=== PATIENT | male | born 1960 | race Caucasian/White ===

== ENCOUNTER 2017-01-18 12:16 | Inpatient (IN) | payer OTHER ==
[2017-01-18 15:33] VITALS: BMI 31.3
--- NOTE | 2017-01-18 16:30 | HP ---
Admission ROS [facility] - [facility] Chief Complaint: I WANT TO GO TO REHAB Allergies/Adverse Reactions: Allergies Allergy/AdvReac Type Severity Reaction Status Date / Time Fish Containing Products Allergy Severe Rash Verified 01/18/17 16:33 fish derived Allergy Intermediate Rash Verified 01/18/17 16:33 No Known Drug Allergies Allergy Unknown Verified 01/18/17 16:33 History of Present Illness: 56 YEARS OLD MALE WITH LONG HISTORY OF OPIOID NICOTINE DEPENDENCE, POLIO = AMBULATE WITH CANE, HAS DEPRESSION IS ADMITTED TO REHAB. PATIENT DISCHARGED FROM [facility] 01/18/17, AFTER 7 DAYS FOR SUICIDAL IDEATION. Exam Limitations: No Limitations - Ebola screening Have you traveled outside of the country in the last 21 days: No Have you had contact with anyone from an Ebola affected area: No Have you been sick,other than usual withdrawal symptoms: No Do you have a fever: No - Review of Systems Constitutional: No Symptoms Reported EENT: reports: No Symptoms Reported Respiratory: reports: No Symptoms reported Cardiac: reports: No Symptoms Reported GI: reports: No Symptoms Reported : reports: No Symptoms Reported Musculoskeletal: reports: Muscle Weakness (RIGHT LEG - POLIO) Integumentary: reports: No Symptoms Reported Neuro: reports: No Symptoms reported Endocrine: reports: No Symptoms Reported Hematology: reports: No Symptoms Reported Psychiatric: reports: Judgement Intact, Orientated x3, Anxious, Depressed Other Systems: Reviewed and Negative Patient History - Patient Medical History Hx Anemia: No Hx Asthma: No Hx Chronic Obstructive Pulmonary Disease (COPD): No Hx Cancer: No Hx Cardiac Disorders: No Hx Congestive Heart Failure: No Hx Hypertension: No Hx Hypercholesterolemia: No Hx Pacemaker: No HX Cerebrovascular Accident: No Hx Seizures: No Hx Dementia: No Hx Diabetes: No Hx Gastrointestinal Disorders: No Hx Liver Disease: No Hx Genitourinary Disorders: No Hx Sexually Transmitted Disorders: No Hx Renal Disease (ESRD): No Hx Thyroid Disease: No Hx Human Immunodeficiency Virus (HIV): No (NEGATIVE LAST 08/08) Hx Hepatitis C: No Hx Depression: No Hx Suicide Attempt: No Hx Bipolar Disorder: No Hx Schizophrenia: Yes - Patient Surgical History Past Surgical History: No Hx Neurologic Surgery: No Hx Cataract Extraction: No Hx Cardiac Surgery: No Hx Lung Surgery: No Hx Breast Surgery: No Hx Breast Biopsy: No Hx Abdominal Surgery: No Hx Appendectomy: No Hx Cholecystectomy: No Hx Genitourinary Surgery: No Hx Orthopedic Surgery: No - PPD History Previous Implant?: Yes Documented Results: Negative w/proof Implanted On Prior R Admission?: Yes Date: 09/10/15 Results: 0mm PPD to be Administered?: Yes - Smoking Cessation Smoking history: Current every day smoker Have you smoked in the past 12 months: Yes Aproximately how many cigarettes per day: 10 Cigars Per Day: 0 Hx Chewing Tobacco Use: No Initiated information on smoking cessation: Yes 'Breaking Loose' booklet given: 01/18/17 - Substance & Tx. History Hx Alcohol Use: Yes Hx Substance Use: Yes Substance Use Type: Alcohol, Cocaine, Marijuana, Opiates Hx Substance Use Treatment: Yes - Substances Abused Alcohol Route: Oral Frequency: Daily Amount used: 1/2 [place] Age of first use: 14 Date of Last Use: 01/11/17 Cocaine Route: Inhalation Frequency: Daily Amount used: 220$ Age of first use: 14 Date of Last Use: 01/11/17 Heroin Route: Inhalation Frequency: Daily Amount used: 11 BAGS Age of first use: 14 Date of Last Use: 05/24/16 Family Disease History - Family Disease History Family Disease History: Other: Father (deceaded,ALCOHOL), Mother () Admission Physical Exam BHS - Vital Signs Vital Signs: Vital Signs - 24 hr 01/18/17 15:28 Temperature 97 F L Pulse Rate 78 Respiratory 18 Rate Blood Pressure 132/80 - Physical General Appearance: Yes: No Apparent Distress, Appropriately Dressed, Obese HEENTM: Yes: Hearing grossly Normal, Normal ENT Inspection, Normocephalic, Normal Voice Respiratory: Yes: Chest Non-Tender, Lungs Clear, Normal Breath Sounds, No Respiratory Distress, No Accessory Muscle Use Neck: Yes: Supple, Trachea in good position Breast: Yes: Breasts Symetrical Cardiology: Yes: Regular Rhythm, Regular Rate, S1, S2 Abdominal: Yes: Normal Bowel Sounds, Non Tender, Soft Genitourinary: Yes: Within Normal Limits Back: Yes: Normal Inspection Musculoskeletal: Yes: Gait Steady (CANE), Muscle weakness (RIGHT LEG) Extremities: Yes: Non-Tender, Other (RIGHT LEG ATROPHY) Neurological: Yes: Fully Oriented, Alert, Normal Mood/Affect, Normal Response Integumentary: Yes: Warm Lymphatic: Yes: Within Normal Limits - Diagnostic (1) Opioid dependence with withdrawal Current Visit: Yes Status: Acute (2) Nicotine dependence Current Visit: Yes Status: Acute Qualifiers: Nicotine product type: cigarettes Substance use status: in withdrawal Qualified Code(s): F17.213 - Nicotine dependence, cigarettes, with withdrawal (3) Use of cane as ambulatory aid Current Visit: Yes Status: Chronic (4) Alcohol dependence with uncomplicated withdrawal Current Visit: Yes Status: Acute (5) Cocaine dependence, uncomplicated Current Visit: Yes Status: Chronic (6) Schizophrenia Current Visit: Yes Status: Suspected Qualifiers: Schizophrenia type: disorganized schizophrenia Qualified Code(s): F20.1 - Disorganized schizophrenia Cleared for Admission [facility] - Detox or Rehab [facility] Level of Care: Observation Bed Detox Regimen/Protocol: Not Applicable Claeared for Rehab Admission: Yes [facility] Breath Alcohol Content Breath Alcohol Content: 0 Vital Signs - Vital Signs Vital Signs Refused: No Temperature Source: Oral Pulse Rate: 78 Respiratory Rate: 18 Blood Pressure: 132/80 BP Location: Left Arm Blood Pressure Position: Sitting - Height Height: 5 ft 6 in - Weight Weight: 194 lb Weight Measurement Method: Standing Scale Body Mass Index (BMI): 31.3 - Bowel Function Bowel Movement: Yes Urine Drug Screen - Control Is Test Valid: Yes - Results Drug Screen Negative: Yes
[2017-01-18] MEDS ORDERED: MENTHOL/PHENOL 1 EACH UD MM PRN (16:47)
[2017-01-18] MEDS ORDERED: guaiFENesin/D-METHORPHAN HB 10 ML UNIT-DOSE CUPS PO PRN (16:47)
[2017-01-18] MEDS ORDERED: LOPERAMIDE HCL 2 MG CAPSULE PO PRN (16:47)
[2017-01-18] MEDS ORDERED: IBUPROFEN 400 MG TABLET (FP) PO PRN (16:47)
[2017-01-18] MEDS ORDERED: hydrOXYzine PAMOATE 50 MG CAPSULE (FP) PO PRN (16:47)
[2017-01-18] MEDS ORDERED: MAG HYDROX/AL HYDROX/SIMETH 30 ML UNIT-DOSE CUP PO PRN (16:47)
[2017-01-18] MEDS ORDERED: ACETAMINOPHEN 325 MG TABLET (FP) PO PRN (16:47)
[2017-01-18] MEDS ORDERED: MAGNESIUM HYDROX 2400MG/30ML ORAL SUSPENSION 30 ML CUP PO PRN (16:47)
[2017-01-18] MEDS ORDERED: NICOTINE POLACRILEX 2 MG GUM BUC PRN (16:47)
[2017-01-18] MEDS ORDERED: P-EPHED 60MG/TRIPROLIDI 2.5MG TABLET PO PRN (16:47)
[2017-01-18] MEDS ORDERED: MAGNESIUM CITRATE 300 ML BOTTLE PO PRN (16:47)
[2017-01-18] MEDS: QUEtiapine FUMARATE 200 MG TABLET PO SCH (21:17)
[2017-01-18] MEDS: traZODone HCL 100 MG TABLET (FP) PO SCH (21:17)
[2017-01-18] MEDS: THIAMINE HCL 100 MG TABLET (FP) PO SCH (21:17)
[2017-01-18] MEDS ORDERED: diphenhydrAMINE HCL 50 MG CAPSULE PO PRN (22:00)
[2017-01-18 23:16] LABS: URINE APPEARANCE CLEAR; URINE BILIRUBIN NEGATIVE (NEGATIVE); URINE BLOOD NEGATIVE (NEGATIVE); URINE COLOR LTYELLOW; URINE GLUCOSE (UA) NEGATIVE (NEGATIVE); URINE KETONE NEGATIVE (NEGATIVE); URINE LEUK ESTERASE NEGATIVE (NEGATIVE); URINE NITRITE NEGATIVE (NEGATIVE); URINE PROTEIN NEGATIVE (NEGATIVE); URINE UROBILINOGEN NEGATIVE E.U./dl (0.2-1.0)
[2017-01-19 10:14] LABS: ALBUMIN 4.1 g/dl (3.4-5.0); ANION GAP 10 (8-16); BILIRUBIN,TOTAL 0.5 mg/dL (0.2-1.0); CALCIUM 9.7 mg/dL (8.5-10.1); CO2 29 mmol/L (21-32); COCKROFT - GAULT 111.35; CREATININE 0.9 mg/dL (0.7-1.3); GLUCOSE,RANDOM 84 mg/dL (74-106); SGOT/AST 17 U/L (15-37); SGPT/ALT 35 U/L (12-78); TOT PROT 7.9 g/dl (6.4-8.2)
[2017-01-19 10:15] LABS: ALK PHOS 95 U/L (45-117)
[2017-01-19 10:29] LABS: MCH 29.1 pg (25.7-33.7); MCHC 33.1 g/dl (32.0-35.9); MEAN CELL VOLUME 87.9 fl (80-96); MEAN PLT VOLUME 9.4 fl (7.5-11.1); PLATELET COUNT 308 K/MM3 (134-434); RDW 15.6 % (11.9-15.9)
[2017-01-19] MEDS: PRENATAL VITAMINS W/ FOLIC ACID TABLET (FP) PO SCH (10:30)
[2017-01-19] MEDS: NICOTINE 14 MG/24 HOURS TOPICAL PATCH TD SCH (10:30)
--- NOTE | 2017-01-19 11:17 | HP ---
Psychiatrist Admission - Data Date of interview: 01/19/17 Admission source: [facility] Identifying data: This is one of the multiple [facility] admission for this 56 years old male in a common-law relationship,father of 4 children, unemployed on SSI, domiciled living with c/l Medical History: Reports history of Poliomyelitis since age 1 with right leg weakness. Smoked 10 cigarettes daily Psychiatric History: Patient is a somewhat poor historian. Reports that his first psychiatric contact occured in 2010 when he was admitted to [facility] for inpt detox. Reports that he was seen then by a psychiatrist and prescribed Seroquel for sleep. Since then he said he has been getting Seroquel in various inpt detox programs he has been admitted to. He told aligner typewriter that his only psychiatric admission was on 01/11/17 to [facility] in [place] for depression. According to referral package from [facility], patient was admitted on 01/11/17 to 01/18/17. He was there because of depression, command auditory hallucinations and suicidal ideations of jumping off a [facility]. He was diagnosed with Schizoaffective Disorder and treated with Wellbutrin XL 150 mg po daily, Seroquel 200 mg po HS and Trazadone 100 mg po HS. According to information from that package, he has had previous admissions with similar presentation( depression, CAH & SI) and most recent one was at [facility] for trying to jump off a roof. Most of these admissions were in the context of homelessness and heroin use. At present, He denies experiencing psychotic, manic or depressive symptoms as well as SI/HI. Physical/Sexual Abuse/Trauma History: Denies history of emotional, physical or sexual abuse as well as DV relationship Additional Comment: Reports history of multiple arrests including 6 felony convictions. Denies being on parole/probation or having any open case at present Vital Signs: Vital Signs - 24 hr 01/18/17 01/18/17 01/19/17 15:28 16:59 00:30 Temperature 97 F L Pulse Rate 78 78 Respiratory 18 18 18 Rate Blood Pressure 132/80 132/80 01/19/17 01/19/17 03:30 06:49 Temperature 97.2 F L Pulse Rate 78 Respiratory 20 18 Rate Blood Pressure 126/71 Allergies/Adverse Reactions: Allergies Allergy/AdvReac Type Severity Reaction Status Date / Time Fish Containing Products Allergy Severe Rash Verified 01/18/17 16:33 fish derived Allergy Intermediate Rash Verified 01/18/17 16:33 No Known Drug Allergies Allergy Unknown Verified 01/18/17 16:33 Date of last physical exam: 01/18/17 Concur with the findings of this exam: Yes - Substance Abuse/Tx History Hx Alcohol Use: Yes Hx Substance Use: Yes Substance Use Type: Alcohol (Started drinking alcohol at age14, consumes half a pint daily. Last drink on 01/11/17) Hx Substance Use Treatment: Yes (7 previous inpt detox & 4 inpt rehab @ [facility]) - Admission Criteria Previous failed treatment: Yes Poor recovery environment: Yes Comorbidities: Yes Lacks judgement: Yes Mental Status Exam - Mental Status Exam Alert and Oriented to: Time Cognitive Function: Fair Mood: Hopeful, Euthymic Affect: Appropriate Patient Behavior: Cooperative Speech Pattern: Clear Voice Loudness: Normal Thought Process: Intact Thought Disorder: Not Present Hallucinations: Denies Suicidal Ideation: Denies Homicidal Ideation: Denies Insight/Judgement: Fair Sleep: Poorly Appetite: Fair Muscle strength/Tone: Normal Gait/Station: Hemiparetic (walking with a cane) Psychiatric Findings - Problem List ([place] 1, 2,3) (1) Alcohol dependence with uncomplicated withdrawal Current Visit: Yes Status: Acute (2) Opioid dependence with withdrawal Current Visit: Yes Status: Acute (3) Cocaine dependence, uncomplicated Current Visit: Yes Status: Chronic (4) Nicotine dependence Current Visit: Yes Status: Acute Qualifiers: Nicotine product type: cigarettes Substance use status: in withdrawal Qualified Code(s): F17.213 - Nicotine dependence, cigarettes, with withdrawal (5) Schizoaffective disorder, depressive type Current Visit: Yes Status: Acute (6) Polio Current Visit: No Status: Acute (7) Hemiparesis Current Visit: No Status: Chronic (8) Use of cane as ambulatory aid Current Visit: Yes Status: Chronic - Initial Treatment Plan Initial Treatment Plan: 1) Continue Wellbutrin XL 150 mg po daily, Seroquel 200 mg po HS and Trazadone 200 mg po HS. 2) Monitor progress
--- NOTE | 2017-01-19 13:44 | EKG ---
Test Reason : Blood Pressure : / mmHG Vent. Rate : 071 BPM Atrial Rate : 071 BPM P-R Int : 146 ms QRS Dur : 108 ms QT Int : 396 ms P-R-T Axes : 052 027 -06 degrees QTc Int : 430 ms NORMAL SINUS RHYTHM INFERIOR INFARCT , AGE UNDETERMINED ABNORMAL ECG NO PREVIOUS ECGS AVAILABLE Confirmed by TEJA CHRIS MD ([id number]) on 01/19/2017 1:44:16 PM Referred By: Malcolm Medellin Confirmed By:TEJA CHRIS MD
[2017-01-19] MEDS: QUEtiapine FUMARATE 200 MG TABLET PO SCH (21:12)
[2017-01-19] MEDS: THIAMINE HCL 100 MG TABLET (FP) PO SCH (21:12)
[2017-01-19] MEDS: traZODone HCL 100 MG TABLET (FP) PO SCH (21:12)
[2017-01-19] MEDS ORDERED: QUEtiapine FUMARATE 200 MG TABLET PO SCH (22:00)
[2017-01-19] MEDS ORDERED: traZODone HCL 100 MG TABLET (FP) PO SCH (22:00)
[2017-01-20] MEDS ORDERED: PT OWN MED DRAWER 7, Y5N ONE (08:45)
[2017-01-20] MEDS: PRENATAL VITAMINS W/ FOLIC ACID TABLET (FP) PO SCH (10:28)
[2017-01-20] MEDS: NICOTINE 14 MG/24 HOURS TOPICAL PATCH TD SCH (10:29)
[2017-01-20] MEDS: traZODone HCL 100 MG TABLET (FP) PO SCH (21:04)
[2017-01-20] MEDS: THIAMINE HCL 100 MG TABLET (FP) PO SCH (21:04)
[2017-01-20] MEDS: QUEtiapine FUMARATE 200 MG TABLET PO SCH (21:05)
[2017-01-21] MEDS: NICOTINE 14 MG/24 HOURS TOPICAL PATCH TD SCH (10:39)
[2017-01-21] MEDS: PRENATAL VITAMINS W/ FOLIC ACID TABLET (FP) PO SCH (10:39)
[2017-01-21] MEDS: THIAMINE HCL 100 MG TABLET (FP) PO SCH (21:33)
[2017-01-21] MEDS: traZODone HCL 100 MG TABLET (FP) PO SCH (21:33)
[2017-01-21] MEDS: QUEtiapine FUMARATE 200 MG TABLET PO SCH (21:34)
[2017-01-22 07:19] VITALS: TEMP 97.7
[2017-01-22] MEDS: PRENATAL VITAMINS W/ FOLIC ACID TABLET (FP) PO SCH (10:07)
[2017-01-22] MEDS: NICOTINE 14 MG/24 HOURS TOPICAL PATCH TD SCH (10:07)
[2017-01-22] MEDS: THIAMINE HCL 100 MG TABLET (FP) PO SCH (21:26)
[2017-01-22] MEDS: QUEtiapine FUMARATE 200 MG TABLET PO SCH (21:26)
[2017-01-22] MEDS: traZODone HCL 100 MG TABLET (FP) PO SCH (21:26)
[2017-01-23 06:50] VITALS: BP 125/78; PULSE 74
[2017-01-23] MEDS ORDERED: PT OWN MED DRAWER 7, Y5N ONE (08:51)
--- NOTE | 2017-01-23 09:21 | PN ---
Psychiatric Progress Note Vital Signs: Vital Signs Period Temp Pulse Resp BP Sys/Gaines Pulse Ox Last 24 Hr 97.7 F 74 18-18 125/78 Date of Session: 01/23/17 Chief Complaint:: AMA Discharge Note HPI: Patient addressing Alcohol, Opoid and Cocaine Dependence comorbid with Nicotine Dependence and Schizoaffective Disorder ROS: Poliomyelitis Current Medications: Active Medications Generic Name Dose Route Start Last Admin Trade Name Freq PRN Reason Stop Dose Admin Acetaminophen 650 mg 01/18/17 16:47 Tylenol - PO Q4H PRN PAIN Al Hydroxide/Mg Hydroxide 30 ml 01/18/17 16:47 Mylanta Oral Suspension - PO Q6H PRN DYSPEPSIA Bupropion HCl 150 mg 01/19/17 10:00 01/22/17 10:07 Wellbutrin Xl - PO 150 mg DAILY LAMONT Administration Diphenhydramine HCl 50 mg 01/18/17 22:00 Benadryl - PO HSMR1 PRN INSOMNIA Eucalyptus/Menthol/Phenol/Sorbitol 1 each 01/18/17 16:47 Cepastat Lozenge - MM Q4H PRN SORE THROAT Guaifenesin 10 ml 01/18/17 16:47 Robitussin Dm - PO Q6H PRN COUGH Hydroxyzine Pamoate 50 mg 01/18/17 16:47 Vistaril - PO Q4H PRN AGITATION Ibuprofen 400 mg 01/18/17 16:47 Motrin - PO Q6H PRN SEVERE PAIN Loperamide HCl 4 mg 01/18/17 16:47 Imodium - PO Q6H PRN DIARRHEA Magnesium Citrate 300 ml 01/18/17 16:47 Citroma - PO Q48H PRN CONSTIPATION Magnesium Hydroxide 30 ml 01/18/17 16:47 Milk Of Magnesia - PO DAILY PRN CONSTIPATION Nicotine 14 mg 01/19/17 10:00 01/22/17 10:07 Nicoderm Patch - TD 14 mg DAILY LAMONT Administration Nicotine Polacrilex 2 mg 01/18/17 16:47 01/22/17 21:27 Nicorette Gum - BUC 2 mg Q2H PRN Administration NICOTINE REPLACEMENT RX Multivit/Folic Acid/Iron 1 tab 01/19/17 10:00 01/22/17 10:07 Vitamins (Sjr) - PO 1 tab DAILY LAMONT Administration Pseudoephedrine/Triprolidine 1 combo 01/18/17 16:47 Actifed - PO TID PRN NASAL CONGESTION Quetiapine Fumarate 200 mg 01/18/17 22:00 01/22/17 21:26 Seroquel - PO 200 mg HS LAMONT Administration Thiamine HCl 100 mg 01/18/17 22:00 01/22/17 21:26 Vitamin B1 - PO 100 mg HS LAMONT Administration Trazodone HCl 200 mg 01/18/17 22:00 01/22/17 21:26 Desyrel - PO 200 mg HS LAMONT Administration Current Side Effect: No Lab tests ordered: Yes Lab tests reviewed: Yes Provider note:: Patient wants to leave against medical advice because he cannot smoke on the unit. He is determined to leave despite encouragement to stay and complete this program. He respnded well to Wellbutrin XL 150 mg po daily, Seroquel 200 mg po HS and Trazadone 200 mg po HS. Scripts for these medications are electronically transmitted to [facility].He is stable for leaving [place] Total face to face time:: 25 Mental Status Exam - Mental Status Exam Alert and Oriented to: Time, Place, Person Cognitive Function: Fair Patient Appearance: Disheveled Mood: Hopeful, Euthymic Affect: Appropriate Patient Behavior: Cooperative Speech Pattern: Clear Voice Loudness: Normal Thought Process: Intact Thought Disorder: Not Present Hallucinations: Denies Suicidal Ideation: Denies Homicidal Ideation: Denies Insight/Judgement: Poor Sleep: Fair Appetite: Good Muscle strength/Tone: Normal Gait/Station: Normal Psychiatric Treatment Plan - Problem List (1) Alcohol dependence with uncomplicated withdrawal Current Visit: Yes (2) Opioid dependence with withdrawal Current Visit: Yes (3) Cocaine dependence, uncomplicated Current Visit: Yes (4) Nicotine dependence Current Visit: Yes Qualifiers: Nicotine product type: cigarettes Substance use status: in withdrawal Qualified Code(s): F17.213 - Nicotine dependence, cigarettes, with withdrawal (5) Schizoaffective disorder, depressive type Current Visit: Yes (6) Polio Current Visit: No (7) Hemiparesis Current Visit: No (8) Use of cane as ambulatory aid Current Visit: Yes Initial treatment plan: Patient is leaving [place]
[2017-01-23] MEDS: PRENATAL VITAMINS W/ FOLIC ACID TABLET (FP) PO SCH (09:27)
[2017-01-23] MEDS: NICOTINE 14 MG/24 HOURS TOPICAL PATCH TD SCH (09:27)
== END 2017-01-23 09:35 | disposition left against medical advice (07) | DRG 770 ==
LOC: YASAS 12:16 → Y3W 17:12
PROVIDERS: ADMIT Psychiatry & Neurology Psychiatry; ATTEND Psychiatry & Neurology Psychiatry
PROC: HZ42ZZZ Group Counseling for Substance Abuse Treatment, Cognitive-Behavioral (ICD-10-PCS; principal; 2017-01-23)
DX: F11.23 Opioid dependence with withdrawal (principal); F10.230 Alcohol dependence with withdrawal, uncomplicated; F14.20 Cocaine dependence, uncomplicated; F17.213 Nicotine dependence, cigarettes, with withdrawal; F25.9 Schizoaffective disorder, unspecified; F20.1 Disorganized schizophrenia; R26.2 Difficulty in walking, not elsewhere classified
CPT/HCPCS: 36415; 80053; 81003; 85027; 86593; 93005; 93010

== ENCOUNTER 2017-07-31 14:48 | Inpatient (IN) | payer OTHER ==
[2017-07-31 18:56] VITALS: BMI 32.8
--- NOTE | 2017-07-31 20:07 | HP ---
Admission ROS [facility] - [facility] Chief Complaint: I WANT TO GO TO REHAB Allergies/Adverse Reactions: Allergies Allergy/AdvReac Type Severity Reaction Status Date / Time Fish Containing Products Allergy Severe Rash Verified 01/18/17 16:33 fish derived Allergy Intermediate Rash Verified 01/18/17 16:33 No Known Drug Allergies Allergy Unknown Verified 01/18/17 16:33 History of Present Illness: 56 YEARS OLD MALE WITH LONG HISTORY OF HEROIN NICOTINE DEPENDENCE HAS SCHIZOPHRENIA AND POLIO SINCE AGE 1 IS ADMITTED TO REHAB Exam Limitations: No Limitations - Ebola screening Have you traveled outside of the country in the last 21 days: No Have you had contact with anyone from an Ebola affected area: No Have you been sick,other than usual withdrawal symptoms: No Do you have a fever: No - Review of Systems Constitutional: No Symptoms Reported EENT: reports: No Symptoms Reported Respiratory: reports: No Symptoms reported Cardiac: reports: No Symptoms Reported GI: reports: No Symptoms Reported : reports: No Symptoms Reported Musculoskeletal: reports: Muscle Weakness (RIGHT LEG) Integumentary: reports: No Symptoms Reported Neuro: reports: No Symptoms reported Endocrine: reports: No Symptoms Reported Hematology: reports: No Symptoms Reported Psychiatric: reports: Judgement Intact, Mood/Affect Appropiate, Orientated x3 Other Systems: Reviewed and Negative Patient History - Patient Medical History Hx Anemia: No Hx Asthma: No Hx Chronic Obstructive Pulmonary Disease (COPD): No Hx Cancer: No Hx Cardiac Disorders: No Hx Congestive Heart Failure: No Hx Hypertension: No Hx Hypercholesterolemia: No Hx Pacemaker: No HX Cerebrovascular Accident: No Hx Seizures: No Hx Dementia: No Hx Diabetes: No Hx Gastrointestinal Disorders: No Hx Liver Disease: No Hx Genitourinary Disorders: No Hx Sexually Transmitted Disorders: No Hx Renal Disease (ESRD): No Hx Thyroid Disease: No Hx Human Immunodeficiency Virus (HIV): No (NEGATIVE LAST 08/08) Hx Hepatitis C: No Hx Depression: No Hx Suicide Attempt: No Hx Bipolar Disorder: No Hx Schizophrenia: Yes - Patient Surgical History Past Surgical History: No Hx Neurologic Surgery: No Hx Cataract Extraction: No Hx Cardiac Surgery: No Hx Lung Surgery: No Hx Breast Surgery: No Hx Breast Biopsy: No Hx Abdominal Surgery: No Hx Appendectomy: No Hx Cholecystectomy: No Hx Genitourinary Surgery: No Hx Orthopedic Surgery: No - PPD History Previous Implant?: Yes Documented Results: Negative w/proof Implanted On Prior R Admission?: Yes Date: 01/20/17 Results: 0mm PPD to be Administered?: No - Smoking Cessation Smoking history: Current every day smoker Have you smoked in the past 12 months: Yes Aproximately how many cigarettes per day: 10 Cigars Per Day: 0 Hx Chewing Tobacco Use: No Initiated information on smoking cessation: Yes 'Breaking Loose' booklet given: 07/31/17 - Substance & Tx. History Hx Alcohol Use: No Hx Substance Use: Yes Substance Use Type: Heroin Hx Substance Use Treatment: Yes (06/2017 [facility] ) - Substances Abused Heroin Route: Injection Frequency: Daily Amount used: 11 BAGS Age of first use: 14 Date of Last Use: 07/24/17 Family Disease History - Family Disease History Family Disease History: [place]: Sister (), Other: Father (deceaded,ALCOHOL) , Mother (), Sister Admission Physical Exam BHS - Vital Signs Vital Signs: Vital Signs - 24 hr 07/31/17 18:54 Temperature 98.5 F Pulse Rate 84 Respiratory 18 Rate Blood Pressure 162/94 - Physical General Appearance: Yes: No Apparent Distress, Appropriately Dressed, Obese HEENTM: Yes: Hearing grossly Normal, Normal ENT Inspection, Normocephalic, Normal Voice Respiratory: Yes: Chest Non-Tender, Lungs Clear, Normal Breath Sounds, No Respiratory Distress, No Accessory Muscle Use Neck: Yes: Supple, Trachea in good position Breast: Yes: Breasts Symetrical Cardiology: Yes: Regular Rhythm, Regular Rate, S1, S2 Abdominal: Yes: Normal Bowel Sounds, Non Tender, Soft Genitourinary: Yes: Within Normal Limits Back: Yes: Normal Inspection Musculoskeletal: Yes: Gait Steady (CANE), Muscle weakness (RIGHT LEG), Other ( RIGHT LEG MUSCLE ATROPHY) Extremities: Yes: Non-Tender Neurological: Yes: Fully Oriented, Alert, Normal Response Integumentary: Yes: Warm, Track Ying Lymphatic: Yes: Within Normal Limits - Diagnostic (1) Nicotine dependence Current Visit: Yes Status: Acute Qualifiers: Nicotine product type: cigarettes Substance use status: in withdrawal Qualified Code(s): F17.213 - Nicotine dependence, cigarettes, with withdrawal; F17.213 - Nicotine dependence, cigarettes, with withdrawal (2) Opioid dependence with withdrawal Current Visit: Yes Status: Acute (3) Polio Current Visit: Yes Status: Chronic (4) Schizoaffective disorder, depressive type Current Visit: Yes Status: Suspected (5) Use of cane as ambulatory aid Current Visit: Yes Status: Chronic Cleared for Admission [facility] - Detox or Rehab [facility] Level of Care: Observation Bed Detox Regimen/Protocol: Not Applicable Claeared for Rehab Admission: Yes [facility] Breath Alcohol Content Breath Alcohol Content: 0 Urine Drug Screen - Results Drug Screen Negative: No Urine Drug Screen Results: BZO-Benzodiazepines, TCA-Tricyclic Antidepress Inpatient Rehab Admission - Initial Determination Are CD services needed?: Yes Free of communicable disease: Yes Not in need of hospitalization: Yes - Rehab Admission Criteria Previous failed treatment: Yes Poor recovery environment: Yes Comorbidities: Yes Lacks judgement: No Patient is meeting Inpatient Rehab admission criteria:: Yes
[2017-07-31] MEDS ORDERED: IBUPROFEN 400 MG TABLET (FP) PO PRN (20:08)
[2017-07-31] MEDS ORDERED: LOPERAMIDE HCL 2 MG CAPSULE PO PRN (20:08)
[2017-07-31] MEDS ORDERED: MAGNESIUM HYDROX 2400MG/30ML ORAL SUSPENSION 30 ML CUP PO PRN (20:08)
[2017-07-31] MEDS ORDERED: MENTHOL/PHENOL 1 EACH UD MM PRN (20:08)
[2017-07-31] MEDS ORDERED: P-EPHED 60MG/TRIPROLIDI 2.5MG TABLET PO PRN (20:08)
[2017-07-31] MEDS ORDERED: guaiFENesin/D-METHORPHAN HB 10 ML UNIT-DOSE CUPS PO PRN (20:08)
[2017-07-31] MEDS ORDERED: MAG HYDROX/AL HYDROX/SIMETH 30 ML UNIT-DOSE CUP PO PRN (20:08)
[2017-07-31] MEDS ORDERED: MAGNESIUM CITRATE 300 ML BOTTLE PO PRN (20:08)
[2017-07-31] MEDS ORDERED: ACETAMINOPHEN 325 MG TABLET (FP) PO PRN (20:08)
[2017-07-31] MEDS ORDERED: cloNIDine HCL 0.1 MG TABLET PO PRN (20:10)
[2017-07-31] MEDS ORDERED: TUBERCULIN PPD 5 TU/0.1ML VIAL ID ONE ×2 (22:08→22:53)
[2017-07-31] MEDS: THIAMINE HCL 100 MG TABLET (FP) PO SCH (22:19)
--- NOTE | 2017-07-31 23:06 | PN ---
[facility] Progress Note Note: Psychiatry Attending's on-call note : Called to enter orders for medications. New admission : 56 y/o male. Admitted from community.Self-referred. Issues : Schizoaffective Disorder Opioid dependence Mr Nielsen is requesting following medications : seroquel 150 mg + trazodone 200 mg Spoke to patient via telephone.History taken. Medications were prescribed from [facility] last month. OPD follow up : undetermined. Patient previously known to [facility]. Old records revisited.Last treated on in 01/2017. Drugs confirmed.Date of last intake : 07/30/17 (self-report). Intervention : Seroquel 100 mg po NOW (one dose) Trazodone 100 mg po NOW (one dose) Doses are intentionally reduced. To be re-adjusted in AM by unit psychiatrist. Side effects/benefits discussed with the patient. Consent (verbal) given over telephone. [facility] report : appreciated.Vitals noted.
[2017-07-31] MEDS ORDERED: QUEtiapine FUMARATE 100 MG TABLET (FP) PO ONE (23:19)
[2017-07-31] MEDS ORDERED: traZODone HCL 100 MG TABLET (FP) PO ONE (23:20)
[2017-07-31 23:28] LABS: URINE APPEARANCE CLEAR; URINE BILIRUBIN NEGATIVE (NEGATIVE); URINE BLOOD NEGATIVE (NEGATIVE); URINE COLOR YELLOW; URINE GLUCOSE (UA) NEGATIVE (NEGATIVE); URINE KETONE NEGATIVE (NEGATIVE); URINE NITRITE NEGATIVE (NEGATIVE); URINE PROTEIN NEGATIVE (NEGATIVE); URINE UROBILINOGEN NEGATIVE mg/dL (0.2-1.0)
[2017-08-01] MEDS: PRENATAL VITAMINS W/ FOLIC ACID TABLET (FP) PO SCH (09:55)
[2017-08-01] MEDS: NICOTINE 14 MG/24 HOURS TOPICAL PATCH TD SCH (09:55)
[2017-08-01 10:11] LABS: MCH 29.1 pg (25.7-33.7); MCHC 33.9 g/dl (32.0-35.9); MEAN CELL VOLUME 85.8 fl (80-96); MEAN PLT VOLUME 8.6 fl (7.5-11.1); RDW 15.3 % (11.9-15.9); WHITE BLOOD COUNT 8.7 K/mm3 (4.0-10.0)
[2017-08-01 10:16] LABS: ALBUMIN 3.4 g/dl (3.4-5.0); ANION GAP 13 (8-16); CALCIUM 8.9 mg/dL (8.5-10.1); CO2 24 mmol/L (21-32); CREATININE 1.1 mg/dL (0.7-1.3); GLUCOSE,RANDOM 176 mg/dL (74-106); SGOT/AST 12 U/L (15-37); SGPT/ALT 26 U/L (12-78)
[2017-08-01 10:17] LABS: ALK PHOS 99 U/L (45-117); BILIRUBIN,TOTAL 1.3 mg/dL (0.2-1.0); TOT PROT 6.9 g/dl (6.4-8.2)
--- NOTE | 2017-08-01 12:23 | HP ---
Psychiatrist Admission - Data Date of interview: 08/01/17 [facility] Identifying data: This is one of the several [facility] admission for this 56 years old male in a common-law relationship,father of 4 children, unemployed on SSI, undomiciled residing in the [place]. Medical History: Poliomyelitis since age 1 with right leg weakness. Smoked 10 cigarettes daily Psychiatric History: Patient reports was diagnosed with Schizophrenia, bipolar and treated with Wellbutrin XL 150 mg po daily, Seroquel 200 mg po HS and Trazadone 100 mg po HS.One psychiatric admission for depression, and suicidal thoughts at [facility] for trying to jump off a roof in the context of homelessness and heroin use he currently on seroquel 150 mg + trazodone 200 mg . Medications were prescribed from [facility] last month. Physical/Sexual Abuse/Trauma History: Denies history of emotional, physical or sexual abuse as well as DV relationship, no service. Additional Comment: Reports history of multiple arrests including 6 felony convictions. Denies being on parole or probation or having any open case at present time. Vital Signs: Vital Signs - 24 hr 07/31/17 07/31/17 08/01/17 18:54 22:30 00:30 Temperature 98.5 F 98.4 F Pulse Rate 84 84 Respiratory 18 18 16 Rate Blood Pressure 162/94 115/101 08/01/17 03:26 Temperature Pulse Rate Respiratory 16 Rate Blood Pressure Allergies/Adverse Reactions: Allergies Allergy/AdvReac Type Severity Reaction Status Date / Time Fish Containing Products Allergy Severe Rash Verified 07/31/17 20:59 fish derived Allergy Intermediate Rash Verified 07/31/17 20:59 No Known Drug Allergies Allergy Unknown Verified 07/31/17 20:59 Date of last physical exam: 07/31/17 Concur with the findings of this exam: Yes - Substance Abuse/Tx History Hx Alcohol Use: No Hx Substance Use: Yes Substance Use Type: Cocaine (injecting $150 daily ), Heroin (injecting about 11 bags a day.) Hx Substance Use Treatment: Yes ([facility]) Mental Status Exam - Mental Status Exam Alert and Oriented to: Time, Place, Person Cognitive Function: Good Patient Appearance: Unkempt, Disheveled Mood: Apathetic Affect: Constricted Patient Behavior: Appropriate, Cooperative Speech Pattern: Clear, Appropriate Voice Loudness: Normal Thought Process: Goal Oriented Thought Disorder: Not Present Hallucinations: Denies Suicidal Ideation: Denies Homicidal Ideation: Denies Insight/Judgement: Fair Sleep: Fair Appetite: Fair Muscle strength/Tone: Normal Gait/Station: Other (walking with a cane) Psychiatric Findings - Problem List ([place] 1, 2,3) (1) Opioid dependence Current Visit: Yes Status: Acute (2) Cocaine dependence Current Visit: Yes Status: Acute (3) Nicotine dependence Current Visit: Yes Status: Acute Qualifiers: Nicotine product type: cigarettes Substance use status: in withdrawal Qualified Code(s): F17.213 - Nicotine dependence, cigarettes, with withdrawal (4) Schizoaffective disorder, depressive type Current Visit: Yes Status: Suspected - Initial Treatment Plan Initial Treatment Plan: will continue his current medications, monitor rpogress as needed.
[2017-08-01 13:13] LABS: PLATELET COMMENT2 NO CLOTTING DETECTED; PLATELET COUNT 248 K/MM3 (134-434); PLATELET ESTIMATE ADEQUATE (NORMAL)
[2017-08-01 18:14] LABS: URINE LEUK ESTERASE Negative (NEGATIVE)
[2017-08-01] MEDS: traZODone HCL 100 MG TABLET (FP) PO SCH (21:15)
[2017-08-01] MEDS: THIAMINE HCL 100 MG TABLET (FP) PO SCH (21:15)
[2017-08-02] MEDS: NICOTINE 14 MG/24 HOURS TOPICAL PATCH TD SCH (09:59)
[2017-08-02] MEDS: PRENATAL VITAMINS W/ FOLIC ACID TABLET (FP) PO SCH (09:59)
[2017-08-02] MEDS: traZODone HCL 100 MG TABLET (FP) PO SCH (21:15)
[2017-08-02] MEDS: THIAMINE HCL 100 MG TABLET (FP) PO SCH (21:15)
[2017-08-02] MEDS: QUEtiapine FUMARATE 50 MG TABLET PO SCH (21:15)
[2017-08-03] MEDS: PRENATAL VITAMINS W/ FOLIC ACID TABLET (FP) PO SCH (09:56)
[2017-08-03] MEDS: NICOTINE 14 MG/24 HOURS TOPICAL PATCH TD SCH (09:56)
--- NOTE | 2017-08-03 12:00 | EKG ---
Test Reason : Blood Pressure : / mmHG Vent. Rate : 086 BPM Atrial Rate : 086 BPM P-R Int : 164 ms QRS Dur : 108 ms QT Int : 368 ms P-R-T Axes : 057 044 -03 degrees QTc Int : 440 ms NORMAL SINUS RHYTHM POSSIBLE INFERIOR INFARCT (CITED ON OR BEFORE 18-JAN-2017) ABNORMAL ECG WHEN COMPARED WITH ECG OF 18-JAN-2017 20:20, QUESTIONABLE CHANGE IN INITIAL FORCES OF INFERIOR LEADS Confirmed by TEJA CHRIS MD ([id number]) on 08/03/2017 12:00:24 PM Referred By: Confirmed By:TEJA CHRIS MD
[2017-08-03] MEDS: traZODone HCL 100 MG TABLET (FP) PO SCH (21:18)
[2017-08-03] MEDS: QUEtiapine FUMARATE 50 MG TABLET PO SCH (21:18)
[2017-08-03] MEDS: THIAMINE HCL 100 MG TABLET (FP) PO SCH (21:19)
[2017-08-04] MEDS: PRENATAL VITAMINS W/ FOLIC ACID TABLET (FP) PO SCH (09:41)
[2017-08-04] MEDS: NICOTINE 14 MG/24 HOURS TOPICAL PATCH TD SCH (09:42)
[2017-08-04] MEDS: THIAMINE HCL 100 MG TABLET (FP) PO SCH (21:10)
[2017-08-04] MEDS: traZODone HCL 100 MG TABLET (FP) PO SCH (21:10)
[2017-08-04] MEDS: QUEtiapine FUMARATE 50 MG TABLET PO SCH (21:10)
[2017-08-05] MEDS: PRENATAL VITAMINS W/ FOLIC ACID TABLET (FP) PO SCH (09:44)
[2017-08-05] MEDS: NICOTINE 14 MG/24 HOURS TOPICAL PATCH TD SCH (09:44)
[2017-08-05] MEDS: QUEtiapine FUMARATE 50 MG TABLET PO SCH (21:10)
[2017-08-05] MEDS: traZODone HCL 100 MG TABLET (FP) PO SCH (21:10)
[2017-08-05] MEDS: THIAMINE HCL 100 MG TABLET (FP) PO SCH (21:10)
[2017-08-06] MEDS: NICOTINE 14 MG/24 HOURS TOPICAL PATCH TD SCH (09:28)
[2017-08-06] MEDS: PRENATAL VITAMINS W/ FOLIC ACID TABLET (FP) PO SCH (09:28)
[2017-08-06] MEDS: traZODone HCL 100 MG TABLET (FP) PO SCH (21:17)
[2017-08-06] MEDS: QUEtiapine FUMARATE 50 MG TABLET PO SCH (21:17)
[2017-08-06] MEDS: THIAMINE HCL 100 MG TABLET (FP) PO SCH (21:17)
[2017-08-07] MEDS: PRENATAL VITAMINS W/ FOLIC ACID TABLET (FP) PO SCH (09:35)
[2017-08-07] MEDS: NICOTINE 14 MG/24 HOURS TOPICAL PATCH TD SCH (09:35)
[2017-08-07] MEDS: QUEtiapine FUMARATE 50 MG TABLET PO SCH (21:07)
[2017-08-07] MEDS: traZODone HCL 100 MG TABLET (FP) PO SCH (21:07)
[2017-08-07] MEDS: THIAMINE HCL 100 MG TABLET (FP) PO SCH (21:07)
[2017-08-07] MEDS: NICOTINE POLACRILEX 2 MG GUM BUC PRN (21:08)
[2017-08-08] MEDS: NICOTINE 14 MG/24 HOURS TOPICAL PATCH TD SCH (09:43)
[2017-08-08] MEDS: PRENATAL VITAMINS W/ FOLIC ACID TABLET (FP) PO SCH (09:43)
[2017-08-08] MEDS: THIAMINE HCL 100 MG TABLET (FP) PO SCH (21:01)
[2017-08-08] MEDS: traZODone HCL 100 MG TABLET (FP) PO SCH (21:01)
[2017-08-08] MEDS: QUEtiapine FUMARATE 50 MG TABLET PO SCH (21:01)
[2017-08-08] MEDS: NICOTINE POLACRILEX 2 MG GUM BUC PRN (21:03)
[2017-08-09] MEDS: NICOTINE 14 MG/24 HOURS TOPICAL PATCH TD SCH (09:51)
[2017-08-09] MEDS: PRENATAL VITAMINS W/ FOLIC ACID TABLET (FP) PO SCH (09:51)
[2017-08-09] MEDS: traZODone HCL 100 MG TABLET (FP) PO SCH (21:08)
[2017-08-09] MEDS: THIAMINE HCL 100 MG TABLET (FP) PO SCH (21:08)
[2017-08-09] MEDS: QUEtiapine FUMARATE 50 MG TABLET PO SCH (21:08)
[2017-08-09] MEDS: NICOTINE POLACRILEX 2 MG GUM BUC PRN (21:10)
[2017-08-10] MEDS: PRENATAL VITAMINS W/ FOLIC ACID TABLET (FP) PO SCH (09:44)
[2017-08-10] MEDS: NICOTINE 14 MG/24 HOURS TOPICAL PATCH TD SCH (09:44)
[2017-08-10] MEDS: THIAMINE HCL 100 MG TABLET (FP) PO SCH (21:03)
[2017-08-10] MEDS: QUEtiapine FUMARATE 50 MG TABLET PO SCH (21:03)
[2017-08-10] MEDS: traZODone HCL 100 MG TABLET (FP) PO SCH (21:03)
[2017-08-11] MEDS: PRENATAL VITAMINS W/ FOLIC ACID TABLET (FP) PO SCH (09:39)
[2017-08-11] MEDS: NICOTINE 14 MG/24 HOURS TOPICAL PATCH TD SCH (09:39)
[2017-08-11] MEDS: traZODone HCL 100 MG TABLET (FP) PO SCH (21:04)
[2017-08-11] MEDS: QUEtiapine FUMARATE 50 MG TABLET PO SCH (21:04)
[2017-08-11] MEDS: THIAMINE HCL 100 MG TABLET (FP) PO SCH (21:05)
[2017-08-11] MEDS: NICOTINE POLACRILEX 2 MG GUM BUC PRN (21:06)
[2017-08-12] MEDS: NICOTINE 14 MG/24 HOURS TOPICAL PATCH TD SCH (09:43)
[2017-08-12] MEDS: PRENATAL VITAMINS W/ FOLIC ACID TABLET (FP) PO SCH (09:43)
[2017-08-12] MEDS: QUEtiapine FUMARATE 50 MG TABLET PO SCH (21:10)
[2017-08-12] MEDS: THIAMINE HCL 100 MG TABLET (FP) PO SCH (21:10)
[2017-08-12] MEDS: traZODone HCL 100 MG TABLET (FP) PO SCH (21:10)
[2017-08-13] MEDS: NICOTINE 14 MG/24 HOURS TOPICAL PATCH TD SCH (09:59)
[2017-08-13] MEDS: PRENATAL VITAMINS W/ FOLIC ACID TABLET (FP) PO SCH (09:59)
[2017-08-13] MEDS: QUEtiapine FUMARATE 50 MG TABLET PO SCH (21:09)
[2017-08-13] MEDS: THIAMINE HCL 100 MG TABLET (FP) PO SCH (21:09)
[2017-08-13] MEDS: traZODone HCL 100 MG TABLET (FP) PO SCH (21:09)
[2017-08-14 06:37] VITALS: TEMP 97.3
[2017-08-14] MEDS: PRENATAL VITAMINS W/ FOLIC ACID TABLET (FP) PO SCH (10:02)
[2017-08-14] MEDS: NICOTINE 14 MG/24 HOURS TOPICAL PATCH TD SCH (10:02)
[2017-08-14] MEDS: QUEtiapine FUMARATE 50 MG TABLET PO SCH (21:04)
[2017-08-14] MEDS: traZODone HCL 100 MG TABLET (FP) PO SCH (21:04)
[2017-08-14] MEDS: THIAMINE HCL 100 MG TABLET (FP) PO SCH (21:04)
[2017-08-14] MEDS: NICOTINE POLACRILEX 2 MG GUM BUC PRN (21:05)
[2017-08-15 06:42] VITALS: BP 120/72; PULSE 74
[2017-08-15] MEDS: PRENATAL VITAMINS W/ FOLIC ACID TABLET (FP) PO SCH (09:38)
[2017-08-15] MEDS: NICOTINE 14 MG/24 HOURS TOPICAL PATCH TD SCH (09:38)
--- NOTE | 2017-08-15 09:56 | PN ---
Psychiatric Progress Note Vital Signs: Vital Signs Period Temp Pulse Resp BP Sys/Gaines Pulse Ox Last 24 Hr 97.3 F 74 18-18 120/72 Date of Session: 08/15/17 Chief Complaint:: discharge visit HPI: Patient has addressed opioid, cocaine, nicotine dependence comorbid Schizoaffective disorder. ROS: WNL Current Medications: Active Medications Generic Name Dose Route Start Last Admin Trade Name Freq PRN Reason Stop Dose Admin Acetaminophen 650 mg 07/31/17 20:08 Tylenol - PO Q4H PRN PAIN Al Hydroxide/Mg Hydroxide 30 ml 07/31/17 20:08 Mylanta Oral Suspension - PO Q6H PRN DYSPEPSIA Clonidine 0.1 mg 07/31/17 20:10 Catapres - PO BID PRN HYPERTENSION Eucalyptus/Menthol/Phenol/Sorbitol 1 each 07/31/17 20:08 Cepastat Lozenge - MM Q4H PRN SORE THROAT Guaifenesin 10 ml 07/31/17 20:08 Robitussin Dm - PO Q6H PRN COUGH Ibuprofen 400 mg 07/31/17 20:08 Motrin - PO Q6H PRN SEVERE PAIN Loperamide HCl 4 mg 07/31/17 20:08 Imodium - PO Q6H PRN DIARRHEA Magnesium Citrate 300 ml 07/31/17 20:08 Citroma - PO Q48H PRN CONSTIPATION Magnesium Hydroxide 30 ml 07/31/17 20:08 Milk Of Magnesia - PO DAILY PRN CONSTIPATION Nicotine 14 mg 08/01/17 10:00 08/15/17 09:38 Nicoderm Patch - TD Not Given DAILY L[facility]ONT Nicotine Polacrilex 2 mg 07/31/17 20:08 08/14/17 21:05 Nicorette Gum - BUC 2 mg Q2H PRN Administration NICOTINE REPLACEMENT RX Multivit/Folic Acid/Iron 1 tab 08/01/17 10:00 08/15/17 09:38 Vitamins (Sjr) - PO 1 tab DAILY [facility] Administration Pseudoephedrine/Triprolidine 1 combo 07/31/17 20:08 Actifed - PO TID PRN NASAL CONGESTION Quetiapine Fumarate 150 mg 08/02/17 22:00 08/14/17 21:04 Seroquel - PO 150 mg HS [facility] Administration Thiamine HCl 100 mg 07/31/17 22:00 08/14/17 21:04 Vitamin B1 - PO 100 mg HS [facility] Administration Trazodone HCl 200 mg 08/01/17 22:00 08/14/17 21:04 Desyrel - PO 200 mg HS [facility] Administration Current Side Effect: No Lab tests ordered: No Lab tests reviewed: Yes Provider note:: Patient has completed today treatment and met identified goals, will continue to address his issues at [facility]. Patient gained insights into importance of changning attitudes/behavior , was encoureaged to utilze all supports available to prevent relapses. Medications well tolerated, reports he feels much better, his sleep improved and anxiety decreased. Scripts provided for 30 days, patient is stable for discharge today. Total face to face time:: 25 Mental Status Exam - Mental Status Exam Alert and Oriented to: Time, Place, Person Cognitive Function: Good Patient Appearance: Well Groomed Mood: Hopeful Affect: Appropriate, Mood Congruent Patient Behavior: Appropriate, Cooperative Speech Pattern: Clear, Appropriate Voice Loudness: Normal Thought Process: Intact, Goal Oriented Thought Disorder: Not Present Hallucinations: Denies Suicidal Ideation: Denies Homicidal Ideation: Denies Insight/Judgement: Fair Sleep: Fair Appetite: Fair Muscle strength/Tone: Normal Gait/Station: Normal Psychiatric Treatment Plan - Problem List (1) Opioid dependence Current Visit: Yes (2) Cocaine dependence Current Visit: Yes (3) Nicotine dependence Current Visit: Yes Qualifiers: Nicotine product type: cigarettes Substance use status: in withdrawal Qualified Code(s): F17.213 - Nicotine dependence, cigarettes, with withdrawal (4) Schizoaffective disorder, depressive type Current Visit: Yes
== END 2017-08-15 10:35 | disposition home or self-care (01) | DRG 773 ==
LOC: YASAS 14:48 → Y5N 20:58
PROVIDERS: ADMIT Psychiatry & Neurology Psychiatry; ATTEND Psychiatry & Neurology Psychiatry
PROC: HZ2ZZZZ Detoxification Services for Substance Abuse Treatment (ICD-10-PCS; principal; 2017-07-31)
DX: F11.23 Opioid dependence with withdrawal (principal); F14.20 Cocaine dependence, uncomplicated; F17.210 Nicotine dependence, cigarettes, uncomplicated; F25.9 Schizoaffective disorder, unspecified; R26.89 Other abnormalities of gait and mobility; Z99.89 Dependence on other enabling machines and devices
CPT/HCPCS: 36415; 80053; 81003; 85027; 86593; 93005; 93010

== ENCOUNTER 2017-11-26 10:43 | Inpatient (IN) | payer OTHER ==
[2017-11-26 13:00] VITALS: BMI 30.7
--- NOTE | 2017-11-26 13:59 | HP ---
Admission [facility] Chief Complaint: I WANT TO GO TO REHAB Allergies/Adverse Reactions: Allergies Allergy/AdvReac Type Severity Reaction Status Date / Time Fish Containing Products Allergy Severe Rash Verified 11/26/17 14:04 No Known Drug Allergies Allergy Unknown Verified 11/26/17 14:04 History of Present Illness: 57 YEARS OLD MALE WITH LONG HISTORY OF HEROIN ALCOHOL NICOTINE DEPENDENCE HAD POLIO AFFECT RIGHT LEG DEFORMED AMBULATE WITH CANE X 2 YEARS IS ADMITTED TO REHAB COMPLETED DETOX AT [facility] Exam Limitations: No Limitations - Ebola screening Have you traveled outside of the country in the last 21 days: No Have you had contact with anyone from an Ebola affected area: No Have you been sick,other than usual withdrawal symptoms: No Do you have a fever: No - Review of Systems Constitutional: Weight Stable (CANE) EENT: reports: No Symptoms Reported Respiratory: reports: No Symptoms reported Cardiac: reports: No Symptoms Reported GI: reports: No Symptoms Reported : reports: No Symptoms Reported Musculoskeletal: reports: Muscle Weakness (RIGHT LEG) Integumentary: reports: No Symptoms Reported Neuro: reports: No Symptoms reported Endocrine: reports: No Symptoms Reported Hematology: reports: No Symptoms Reported Psychiatric: reports: Judgement Intact, Orientated x3, Depressed Other Systems: Reviewed and Negative Patient History - Patient Medical History Hx Anemia: No Hx Asthma: No Hx Chronic Obstructive Pulmonary Disease (COPD): No Hx Cancer: No Hx Cardiac Disorders: No Hx Congestive Heart Failure: No Hx Hypertension: No Hx Hypercholesterolemia: No Hx Pacemaker: No HX Cerebrovascular Accident: No Hx Seizures: No Hx Dementia: No Hx Diabetes: No Hx Gastrointestinal Disorders: No Hx Liver Disease: No Hx Genitourinary Disorders: No Hx Sexually Transmitted Disorders: No Hx Renal Disease (ESRD): No Hx Thyroid Disease: No Hx Human Immunodeficiency Virus (HIV): No (NEGATIVE LAST 08/08) Hx Hepatitis C: No Hx Depression: No Hx Suicide Attempt: No Hx Bipolar Disorder: No Hx Schizophrenia: Yes - Patient Surgical History Past Surgical History: No Hx Neurologic Surgery: No Hx Cataract Extraction: No Hx Cardiac Surgery: No Hx Lung Surgery: No Hx Breast Surgery: No Hx Breast Biopsy: No Hx Abdominal Surgery: No Hx Appendectomy: No Hx Cholecystectomy: No Hx Genitourinary Surgery: No Hx Orthopedic Surgery: No - PPD History Date: 01/20/17 Results: 0mm - Smoking Cessation Smoking history: Current every day smoker Have you smoked in the past 12 months: Yes Aproximately how many cigarettes per day: 10 Cigars Per Day: 0 Hx Chewing Tobacco Use: No Initiated information on smoking cessation: Yes 'Breaking Loose' booklet given: 11/26/17 - Substance & Tx. History Hx Alcohol Use: Yes Hx Substance Use: Yes Substance Use Type: Alcohol, Opiates Hx Substance Use Treatment: Yes (11/2017 [facility]) Family Disease History - Family Disease History Family Disease History: [place]: Sister (), Other: Father (deceaded,ALCOHOL) , Mother (), Sister Admission Physical Exam [facility] - Vital Signs Vital Signs: Vital Signs - 24 hr 11/26/17 12:58 Temperature 96.7 F L Pulse Rate 91 H Respiratory 20 Rate Blood Pressure 102/78 - Physical General Appearance: Yes: No Apparent Distress, Nourished, Appropriately Dressed HEENTM: Yes: Hearing grossly Normal, Normal ENT Inspection, Normocephalic, Normal Voice Respiratory: Yes: Chest Non-Tender, Lungs Clear, Normal Breath Sounds, No Respiratory Distress, No Accessory Muscle Use Neck: Yes: Supple, Trachea in good position Breast: Yes: Breasts Symetrical Cardiology: Yes: Regular Rhythm, S1, S2, Tachycardia Abdominal: Yes: Normal Bowel Sounds, Non Tender, Soft Genitourinary: Yes: Within Normal Limits Back: Yes: Normal Inspection Musculoskeletal: Yes: Gait Steady (CANE) Extremities: Yes: Non-Tender Neurological: Yes: Fully Oriented, Alert, Normal Mood/Affect, Normal Response Integumentary: Yes: Warm Lymphatic: Yes: Within Normal Limits - Diagnostic (1) Use of cane as ambulatory aid Current Visit: Yes Status: Chronic (2) Alcohol dependence with uncomplicated withdrawal Current Visit: Yes Status: Acute (3) Nicotine dependence Current Visit: Yes Status: Acute Qualifiers: Nicotine product type: cigarettes Substance use status: in withdrawal Qualified Code(s): F17.213 - Nicotine dependence, cigarettes, with withdrawal (4) Opioid dependence with withdrawal Current Visit: Yes Status: Acute (5) Schizoaffective disorder, depressive type Current Visit: Yes Status: Suspected Cleared for Admission [facility] - Detox or Rehab [facility] Level of Care: Observation Bed Detox Regimen/Protocol: Not Applicable Claeared for Rehab Admission: Yes [facility] Breath Alcohol Content Breath Alcohol Content: 0 Urine Drug Screen - Control Is Test Valid: Yes - Results Drug Screen Negative: No Urine Drug Screen Results: BAR-Barbiturates, BZO-Benzodiazepines, MTD-Methadone , TCA-Tricyclic Antidepress Inpatient Rehab Admission - Initial Determination Are CD services needed?: Yes Free of communicable disease: Yes Not in need of hospitalization: Yes - Rehab Admission Criteria Previous failed treatment: Yes Poor recovery environment: Yes Comorbidities: Yes Lacks judgement: No Patient is meeting Inpatient Rehab admission criteria:: Yes
[2017-11-26] MEDS ORDERED: MENTHOL/PHENOL 1 EACH UD MM PRN (14:08)
[2017-11-26] MEDS ORDERED: ACETAMINOPHEN 325 MG TABLET (FP) PO PRN (14:08)
[2017-11-26] MEDS ORDERED: NICOTINE POLACRILEX 2 MG GUM BC PRN (14:08)
[2017-11-26] MEDS ORDERED: MAGNESIUM CITRATE 300 ML BOTTLE PO PRN (14:08)
[2017-11-26] MEDS ORDERED: P-EPHED 60MG/TRIPROLIDI 2.5MG TABLET PO PRN (14:08)
[2017-11-26] MEDS ORDERED: LOPERAMIDE HCL 2 MG CAPSULE PO PRN (14:08)
[2017-11-26] MEDS ORDERED: IBUPROFEN 400 MG TABLET (FP) PO PRN (14:08)
[2017-11-26] MEDS ORDERED: MAG HYDROX/AL HYDROX/SIMETH 30 ML UNIT-DOSE CUP PO PRN (14:08)
[2017-11-26] MEDS ORDERED: guaiFENesin/D-METHORPHAN HB 10 ML UNIT-DOSE CUPS PO PRN (14:08)
[2017-11-26] MEDS ORDERED: MAGNESIUM HYDROX 2400MG/30ML ORAL SUSPENSION 30 ML CUP PO PRN (14:08)
[2017-11-26] MEDS: traZODone HCL 100 MG TABLET (FP) PO SCH (21:33)
[2017-11-26] MEDS: QUEtiapine FUMARATE 50 MG TABLET PO SCH (21:33)
[2017-11-26] MEDS: THIAMINE HCL 100 MG TABLET (FP) PO SCH (21:33)
[2017-11-26 22:18] LABS: HEMOGLOBIN 15.8 GM/dL (11.7-16.9); MCH 29.3 pg (25.7-33.7); MCHC 33.6 g/dl (32.0-35.9); MEAN CELL VOLUME 87.1 fl (80-96); MEAN PLT VOLUME 9.2 fl (7.5-11.1); RBC 5.39 M/mm3 (4.00-5.60); RDW 15.5 % (11.9-15.9); WHITE BLOOD COUNT 9.4 K/mm3 (4.0-10.0)
[2017-11-26 22:22] LABS: ALBUMIN 3.9 g/dl (3.4-5.0); ANION GAP 6 (8-16); BLOOD UREA NITROGEN 14 mg/dL (7-18); CALCIUM 9.4 mg/dL (8.5-10.1); CHLORIDE 102 mmol/L (98-107); CO2 29 mmol/L (21-32); CREATININE 0.9 mg/dL (0.7-1.3); GLUCOSE,RANDOM 95 mg/dL (74-106); POTASSIUM 4.2 mmol/L (3.5-5.1); SGOT/AST 13 U/L (15-37); SGPT/ALT 33 U/L (12-78); SODIUM 137 mmol/L (136-145)
[2017-11-26 22:24] LABS: ALK PHOS 112 U/L (45-117); TOT PROT 8.1 g/dl (6.4-8.2)
[2017-11-26 22:35] LABS: URINE APPEARANCE TURBID; URINE BILIRUBIN NEGATIVE (NEGATIVE); URINE BLOOD NEGATIVE (NEGATIVE); URINE COLOR YELLOW; URINE GLUCOSE (UA) NEGATIVE (NEGATIVE); URINE KETONE NEGATIVE (NEGATIVE); URINE LEUK ESTERASE NEGATIVE (NEGATIVE); URINE NITRITE NEGATIVE (NEGATIVE); URINE PROTEIN NEGATIVE (NEGATIVE); URINE UROBILINOGEN NEGATIVE mg/dL (0.2-1.0)
[2017-11-27] MEDS: NICOTINE 14 MG/24 HOURS TOPICAL PATCH TD SCH (10:24)
[2017-11-27] MEDS: PRENATAL VITAMINS W/ FOLIC ACID TABLET (FP) PO SCH (10:24)
[2017-11-27] MEDS: QUEtiapine FUMARATE 50 MG TABLET PO SCH ×2 (10:24→21:32)
--- NOTE | 2017-11-27 11:40 | HP ---
Psychiatrist Admission - Data Date of interview: 11/27/17 Admission source: [facility] Identifying data: This is one of the several [facility] admission for this 57 years old male in a common-law relationship,father of 4 children, unemployed on SSI, undomiciled residing in the [place]. Medical History: Poliomyelitis since age 1 with right leg weakness. Smoked cigarettes 1/2 PPD daily Psychiatric History: Patient reports was diagnosed with Schizophrenia, bipolar and treated with Wellbutrin, Seroquel and Trazodone. Reports one psychiatric admission to address depressed mood and suicidal thoughts at [facility] for trying to jump off a roof, states he was hoemelss and using drugs at at that time, non-compliant with medications and follow-up, states he visits ER at [facility] for medications refill currently on seroquel 150 mg po bid trazodone 200 mg. Physical/Sexual Abuse/Trauma History: Patient denies history of sexual, physical and verbal abuse. Vital Signs: Vital Signs - 24 hr 11/26/17 11/27/17 11/27/17 12:58 00:38 03:30 Temperature 96.7 F L Pulse Rate 91 H Respiratory 20 18 18 Rate Blood Pressure 102/78 11/27/17 06:57 Temperature 97.9 F Pulse Rate 84 Respiratory 18 Rate Blood Pressure 106/73 Allergies/Adverse Reactions: Allergies Allergy/AdvReac Type Severity Reaction Status Date / Time Fish Containing Products Allergy Severe Rash Verified 11/26/17 18:52 No Known Drug Allergies Allergy Unknown Verified 11/26/17 18:52 - Substance Abuse/Tx History Hx Alcohol Use: Yes (started at age of 13.) Hx Substance Use: Yes Substance Use Type: Alcohol (bacardi 1 pint daily), Heroin (IV use daily 11 bags , started at age of 13) Hx Substance Use Treatment: Yes (several detox/rehabs at [facility]) Mental Status Exam - Mental Status Exam Alert and Oriented to: Time, Place, Person Cognitive Function: Good Patient Appearance: Unkempt, Disheveled Mood: Depressed, Sad Affect: Appropriate, Mood Congruent Patient Behavior: Impulsive, Cooperative Speech Pattern: Clear, Appropriate Voice Loudness: Normal Thought Process: Intact, Goal Oriented Thought Disorder: Not Present Hallucinations: Denies, Auditory (heard voices 1,5 year ago ) Suicidal Ideation: Denies Homicidal Ideation: Denies Insight/Judgement: Fair Sleep: Fair (reports sleep well with trazodone.) Appetite: Poor, Weight loss (lost 30 lbs over 5 months) Muscle strength/Tone: Rigidity Gait/Station: Other (using cane) Psychiatric Findings - Problem List ([place] 1, 2,3) (1) Opioid dependence Current Visit: Yes Status: Acute (2) Nicotine dependence Current Visit: Yes Status: Acute Qualifiers: Nicotine product type: cigarettes Substance use status: in withdrawal Qualified Code(s): F17.213 - Nicotine dependence, cigarettes, with withdrawal (3) Use of cane as ambulatory aid Current Visit: Yes Status: Chronic (4) Schizoaffective disorder, depressive type Current Visit: Yes Status: Suspected (5) Alcohol dependence Current Visit: No Status: Acute - Initial Treatment Plan Initial Treatment Plan: Will continue his current medications, monitor progress as needed.
--- NOTE | 2017-11-27 12:02 | EKG ---
Test Reason : Blood Pressure : / mmHG Vent. Rate : 097 BPM Atrial Rate : 097 BPM P-R Int : 162 ms QRS Dur : 092 ms QT Int : 352 ms P-R-T Axes : 059 044 011 degrees QTc Int : 447 ms NORMAL SINUS RHYTHM Possible inferior infarct T WAVE ABNORMALITY, CONSIDER INFERIOR ISCHEMIA ABNORMAL ECG WHEN COMPARED WITH ECG OF 31-JUL-2017 23:33, NO SIGNIFICANT CHANGE WAS FOUND Confirmed by MD Anh, Ismael ([id number]) on 11/27/2017 12:02:20 PM Referred By: Confirmed By:Ismael Kamara MD
--- NOTE | 2017-11-27 14:10 | EKG ---
Test Reason : Blood Pressure : / mmHG Vent. Rate : 074 BPM Atrial Rate : 074 BPM P-R Int : 150 ms QRS Dur : 100 ms QT Int : 396 ms P-R-T Axes : 052 022 033 degrees QTc Int : 439 ms NORMAL SINUS RHYTHM INFERIOR INFARCT , AGE UNDETERMINED ABNORMAL ECG Confirmed by MD Anh, Ismael ([id number]) on 11/27/2017 2:09:35 PM Referred By: Paul ARNOLD Confirmed By:Ismael Kamara MD
--- NOTE | 2017-11-27 15:10 | PN ---
[facility] Progress Note (SOAP) Subjective: paTIENT REQUESTING ENSURE BECASUE OF RECENT WT LOSS Objective: 11/27/17 15:10 Vital Signs - 24 hr 11/27/17 11/27/17 11/27/17 00:38 03:30 06:57 Temperature 97.9 F Pulse Rate 84 Respiratory 18 18 18 Rate Blood Pressure 106/73 Laboratory Tests 11/26/17 11/26/17 11/26/17 14:00 14:00 14:00 WBC 9.4 RBC 5.39 Hgb 15.8 Hct 47.0 MCV 87.1 MCH 29.3 MCHC 33.6 RDW 15.5 Plt Count No Result Required. MPV 9.2 Sodium 137 Potassium 4.2 Chloride 102 Carbon Dioxide 29 D Anion Gap 6 L BUN 14 Creatinine 0.9 Creat Clearance w eGFR > 60 Random Glucose 95 D Calcium 9.4 Total Bilirubin 1.0 D AST 13 L ALT 33 D Alkaline Phosphatase 112 Total Protein 8.1 Albumin 3.9 Urine Color Urine Appearance Urine pH Ur Specific [place] Urine Protein Urine Glucose (UA) Urine Ketones Urine Blood Urine Nitrite Urine Bilirubin Urine Urobilinogen Ur Leukocyte Esterase RPR Titer Nonreactive 11/26/17 16:00 WBC RBC Hgb Hct MCV MCH MCHC RDW Plt Count MPV Sodium Potassium Chloride Carbon Dioxide Anion Gap BUN Creatinine Creat Clearance w eGFR Random Glucose Calcium Total Bilirubin AST ALT Alkaline Phosphatase Total Protein Albumin Urine Color Yellow Urine Appearance Turbid Urine pH 5.0 D Ur Specific [place] 1.029 Urine Protein Negative Urine Glucose (UA) Negative Urine Ketones Negative Urine Blood Negative Urine Nitrite Negative Urine Bilirubin Negative Urine Urobilinogen Negative Ur Leukocyte Esterase Negative RPR Titer Assessment: 11/27/17 15:10 LABS REVIEWED, WT LOSS 2/2 SUBSTANCE USE START ENSURE BID
[2017-11-27] MEDS: THIAMINE HCL 100 MG TABLET (FP) PO SCH (21:32)
[2017-11-27] MEDS: traZODone HCL 100 MG TABLET (FP) PO SCH (21:33)
[2017-11-28] MEDS: PRENATAL VITAMINS W/ FOLIC ACID TABLET (FP) PO SCH (10:32)
[2017-11-28] MEDS: QUEtiapine FUMARATE 50 MG TABLET PO SCH ×2 (10:32→21:29)
[2017-11-28] MEDS: NICOTINE 14 MG/24 HOURS TOPICAL PATCH TD SCH (10:33)
[2017-11-28] MEDS: THIAMINE HCL 100 MG TABLET (FP) PO SCH (21:29)
[2017-11-28] MEDS: traZODone HCL 100 MG TABLET (FP) PO SCH (21:29)
[2017-11-29] MEDS: QUEtiapine FUMARATE 50 MG TABLET PO SCH ×2 (10:29→21:32)
[2017-11-29] MEDS: PRENATAL VITAMINS W/ FOLIC ACID TABLET (FP) PO SCH (10:29)
[2017-11-29] MEDS: NICOTINE 14 MG/24 HOURS TOPICAL PATCH TD SCH (10:30)
[2017-11-29] MEDS: THIAMINE HCL 100 MG TABLET (FP) PO SCH (21:32)
[2017-11-29] MEDS: traZODone HCL 100 MG TABLET (FP) PO SCH (21:32)
[2017-11-30] MEDS: QUEtiapine FUMARATE 50 MG TABLET PO SCH ×2 (10:22→21:31)
[2017-11-30] MEDS: PRENATAL VITAMINS W/ FOLIC ACID TABLET (FP) PO SCH (10:22)
[2017-11-30] MEDS: NICOTINE 14 MG/24 HOURS TOPICAL PATCH TD SCH (10:23)
[2017-11-30] MEDS: THIAMINE HCL 100 MG TABLET (FP) PO SCH (21:31)
[2017-11-30] MEDS: traZODone HCL 100 MG TABLET (FP) PO SCH (21:31)
[2017-12-01] MEDS: PRENATAL VITAMINS W/ FOLIC ACID TABLET (FP) PO SCH (09:59)
[2017-12-01] MEDS: QUEtiapine FUMARATE 50 MG TABLET PO SCH ×2 (09:59→21:32)
[2017-12-01] MEDS: NICOTINE 14 MG/24 HOURS TOPICAL PATCH TD SCH (10:00)
[2017-12-01] MEDS: traZODone HCL 100 MG TABLET (FP) PO SCH (21:32)
[2017-12-01] MEDS: THIAMINE HCL 100 MG TABLET (FP) PO SCH (21:32)
[2017-12-02] MEDS: NICOTINE 14 MG/24 HOURS TOPICAL PATCH TD SCH (10:03)
[2017-12-02] MEDS: QUEtiapine FUMARATE 50 MG TABLET PO SCH ×2 (10:03→21:29)
[2017-12-02] MEDS: PRENATAL VITAMINS W/ FOLIC ACID TABLET (FP) PO SCH (10:03)
[2017-12-02] MEDS: THIAMINE HCL 100 MG TABLET (FP) PO SCH (21:29)
[2017-12-02] MEDS: traZODone HCL 100 MG TABLET (FP) PO SCH (21:29)
[2017-12-03 06:58] VITALS: BP 126/77; PULSE 95; TEMP 98.2
[2017-12-03] MEDS: PRENATAL VITAMINS W/ FOLIC ACID TABLET (FP) PO SCH (10:13)
[2017-12-03] MEDS ORDERED: QUEtiapine FUMARATE 25 MG TABLET (FP) ONE (10:14)
[2017-12-03] MEDS: QUEtiapine FUMARATE 50 MG TABLET PO SCH (10:15)
[2017-12-03] MEDS: NICOTINE 14 MG/24 HOURS TOPICAL PATCH TD SCH (10:15)
--- NOTE | 2017-12-03 10:24 | PN ---
Psychiatric Progress Note Vital Signs: Vital Signs Period Temp Pulse Resp BP Sys/Gaines Pulse Ox Last 24 Hr 98.2 F 95 16-18 126/77 Date of Session: 12/03/17 Chief Complaint:: Discharge visit Current Medications: Active Medications Generic Name Dose Route Start Last Admin Trade Name Freq PRN Reason Stop Dose Admin Acetaminophen 650 mg 11/26/17 14:08 Tylenol - PO Q4H PRN FEVER Al Hydroxide/Mg Hydroxide 30 ml 11/26/17 14:08 Mylanta Oral Suspension - PO Q6H PRN DYSPEPSIA Eucalyptus/Menthol/Phenol/Sorbitol 1 each 11/26/17 14:08 Cepastat Lozenge - MM Q4H PRN SORE THROAT Guaifenesin 10 ml 11/26/17 14:08 Robitussin Dm - PO Q6H PRN COUGH Ibuprofen 400 mg 11/26/17 14:08 Motrin - PO Q6H PRN Pain level 4-6 Loperamide HCl 4 mg 11/26/17 14:08 Imodium - PO Q6H PRN DIARRHEA Magnesium Citrate 300 ml 11/26/17 14:08 Citroma - PO Q48H PRN CONSTIPATION Magnesium Hydroxide 30 ml 11/26/17 14:08 Milk Of Magnesia - PO DAILY PRN CONSTIPATION Nicotine 14 mg 11/27/17 10:00 12/03/17 10:15 Nicoderm Patch - TD Not Given DAILY LAMONT Nicotine Polacrilex 2 mg 11/26/17 14:08 Nicorette Gum - BC Q2H PRN NICOTINE REPLACEMENT RX Multivit/Folic Acid/Iron 1 tab 11/27/17 10:00 12/03/17 10:13 Vitamins (Sjr) - PO 1 tab DAILY [facility] Administration Pseudoephedrine/Triprolidine 1 combo 11/26/17 14:08 Actifed - PO TID PRN NASAL CONGESTION Quetiapine Fumarate 150 mg 11/26/17 22:00 12/03/17 10:15 Seroquel - PO 150 mg BID [facility] Administration Thiamine HCl 100 mg 11/26/17 22:00 12/02/17 21:29 Vitamin B1 - PO 100 mg HS [facility] Administration Trazodone HCl 200 mg 11/26/17 22:00 12/02/17 21:29 Desyrel - PO 200 mg HS [facility] Administration Current Side Effect: No Lab tests ordered: No Lab tests reviewed: Yes Provider note:: Patient completed this progrsam today.he has met his treatment goals and will continue to address his issues on outpatient basis at [facility]. Total face to face time:: 30
== END 2017-12-03 11:40 | disposition home or self-care (01) | DRG 772 ==
LOC: YASAS 10:43 → Y5N 14:30
PROVIDERS: ADMIT Psychiatry & Neurology Psychiatry; ATTEND Psychiatry & Neurology Psychiatry
PROC: HZ42ZZZ Group Counseling for Substance Abuse Treatment, Cognitive-Behavioral (ICD-10-PCS; principal; 2017-11-26)
DX: F11.20 Opioid dependence, uncomplicated (principal); F10.20 Alcohol dependence, uncomplicated; F17.213 Nicotine dependence, cigarettes, with withdrawal; F25.1 Schizoaffective disorder, depressive type; R00.0 Tachycardia, unspecified; R26.2 Difficulty in walking, not elsewhere classified; Z99.89 Dependence on other enabling machines and devices; Z91.013 Allergy to seafood
CPT/HCPCS: 36415; 80053; 81003; 85027; 86593; 93005; 93010

== ENCOUNTER 2019-01-10 10:36 | Inpatient (IN) | payer OTHER ==
[2019-01-10 11:12] VITALS: BMI 29.3
--- NOTE | 2019-01-10 11:56 | HP ---
COWS - Scale Resting Pulse: 0= [place] 80 or Below Sweatin= Chills/Flushing Restless Observation: 3= Extraneous Movement Pupil Size: 1= Pupils >than Normal Bone or Joint Aches: 2= Severe Diffuse Aches Runny Nose/ Eye Tearin= Runny Nose/Eyes GI Upset > 30mins: 2= Nausea/Diarrhea Tremor Observation: 2= Slight Tremor Visible Yawning Observation: 1= 1-2x During Session Anxiety or Irritability: 2=Irritable/Anxious Goose Flesh Skin: 0=Smooth Skin COWS Score: 16 CIWA Score - Admission Criteria OASAS Guidelines: Admission for Medically Managed Detox: Requires at least one of the followin. CIWA greater than 12 2. Seizures within the past 24 hours 3. Delirium tremens within the past 24 hours 4. Hallucinations within the past 24 hours 5. Acute intervention needed for co occurring medical disorder 6. Acute intervention needed for co occurring psychiatric disorder 7. Severe withdrawal that cannot be handled at a lower level of care (continued vomiting, continued diarrhea, abnormal vital signs) requiring intravenous medication and/or fluids 8. Admission [facility] Chief Complaint: i need help to stop using heroin and cocaine Allergies/Adverse Reactions: Allergies Allergy/AdvReac Type Severity Reaction Status Date / Time Fish Containing Products Allergy Severe Rash Verified 01/10/19 11:05 No Known Drug Allergies Allergy Unknown Verified 01/10/19 11:05 History of Present Illness: this 59 years old male with heroin and cocaine dependence,seeking detox, withdrawal symptom, need help last treatment rehab 11/26/17 to 12/03/17 nicotine dependence 1/2 pack /day,requesting patch weight loss insomnia 200 mgs hs - Ebola screening Have you traveled outside of the country in the last 21 days: No (N) Have you had contact with anyone from an Ebola affected area: No Do you have a fever: No - Review of Systems Constitutional: Chills, Loss of Appetite, Malaise, Night Sweats, Changes in sleep, Weakness, Unintentional Wgt. Loss EENT: reports: Tearing, Nose Congestion Respiratory: reports: No Symptoms reported Cardiac: reports: No Symptoms Reported GI: reports: Nausea, Poor Appetite, Abdominal cramping : reports: No Symptoms Reported Musculoskeletal: reports: Back Pain, Joint Pain, Muscle Pain, Joint Stiffness Integumentary: reports: Dryness Neuro: reports: Headache, Tremors Endocrine: reports: No Symptoms Reported, See HPI, Excessive Sweating, Flushing Hematology: reports: No Symptoms Reported Psychiatric: reports: No Sypmtoms Reported, Judgement Intact, Mood/Affect Appropiate, Orientated x3, other (insomnia) Patient History - Patient Medical History Hx Anemia: No Hx Asthma: No Hx Chronic Obstructive Pulmonary Disease (COPD): No Hx Cancer: No Hx Cardiac Disorders: No Hx Congestive Heart Failure: No Hx Hypertension: No Hx Hypercholesterolemia: No Hx Pacemaker: No HX Cerebrovascular Accident: No Hx Seizures: No Hx Dementia: No Hx Diabetes: No Hx Gastrointestinal Disorders: No Hx Liver Disease: No Hx Genitourinary Disorders: No Hx Sexually Transmitted Disorders: No Hx Renal Disease (ESRD): No Hx Thyroid Disease: No Hx Human Immunodeficiency Virus (HIV): No (12/10 negative last) Hx Hepatitis C: No Hx Depression: No Hx Suicide Attempt: No Hx Bipolar Disorder: No Hx Schizophrenia: Yes Other Medical History: no suicidal,no homicidal - Patient Surgical History Past Surgical History: No Hx Neurologic Surgery: No Hx Cataract Extraction: No Hx Cardiac Surgery: No Hx Lung Surgery: No Hx Breast Surgery: No Hx Breast Biopsy: No Hx Abdominal Surgery: No Hx Appendectomy: No Hx Cholecystectomy: No Hx Genitourinary Surgery: No Hx Section: No Hx Orthopedic Surgery: No Hx Hysterectomy: No Anesthesia Reaction: No - PPD History Previous Implant?: Yes Documented Results: Negative w/o proof Date: 01/20/17 Results: 0mm PPD to be Administered?: Yes - Smoking Cessation Smoking history: Current every day smoker Have you smoked in the past 12 months: Yes Aproximately how many cigarettes per day: 10 Cigars Per Day: 0 Hx Chewing Tobacco Use: No Initiated information on smoking cessation: Yes 'Breaking Loose' booklet given: 01/10/19 - Substance & Tx. History Hx Alcohol Use: No Hx Substance Use: Yes Substance Use Type: Cocaine, Heroin Hx Substance Use Treatment: Yes ([facility] 11/26/17 to 12/03/17) - Substances abused Heroin Other (specify): SNIFF Frequency: Daily Amount used: 11 BAGS Age of first use: 14 Date of last use: 01/09/19 Cocaine Substance route: Inhalation Frequency: Daily Amount used: 40$ Age of first use: 14 Date of last use: 01/09/19 Family Disease History - Family Disease History Family Disease History: [place]: Sister (), Other: Father (deceaded,ALCOHOL) , Mother (), Sister Admission Physical Exam [facility] - Vital Signs Vital Signs: Vital Signs - 24 hr 01/10/19 01/10/19 11:06 11:34 Temperature 99 F 99.0 F Pulse Rate 75 75 Respiratory 18 18 Rate Blood Pressure 120/79 120/79 - Physical General Appearance: Yes: Moderate Distress, Tremorous, Irritable, Sweating, Anxious HEENTM: Yes: CECILY, Pharynx Normal Respiratory: Yes: Within Normal Limits, Lungs Clear, Normal Breath Sounds Neck: Yes: Within Normal Limits, Supple, Trachea in good position Breast: Yes: Within Normal Limits Cardiology: Yes: Within Normal Limits, Regular Rhythm, Regular Rate, S1, S2 Abdominal: Yes: Within Normal Limits, Normal Bowel Sounds, Non Tender, Flat, Soft Genitourinary: Yes: Within Normal Limits Back: Yes: Muscle Spasm Musculoskeletal: Yes: Back pain, Muscle Pain Extremities: Yes: Within Normal Limits, Tremors, Other (right loer hemiplegia with smaal right leg from polio) Neurological: Yes: Within Normal Limits, wallpaper remover steam II-XII NML intact, Fully Oriented, Alert, Motor Strength 5/5 Integumentary: Yes: Dry Lymphatic: Yes: Within Normal Limits - Diagnostic (1) Opioid dependence with withdrawal Current Visit: Yes Status: Acute (2) Cocaine dependence Current Visit: Yes Status: Chronic (3) Cocaine dependence, uncomplicated Current Visit: No Status: Chronic (4) Hemiparesis Current Visit: No Status: Chronic (5) Insomnia Current Visit: Yes Status: Chronic (6) Polio Current Visit: No Status: Chronic (7) Use of cane as ambulatory aid Current Visit: No Status: Chronic (8) Schizophrenia Current Visit: No Status: Suspected Qualifiers: Schizophrenia type: disorganized schizophrenia Qualified Code(s): F20.1 - Disorganized schizophrenia Cleared for Admission [facility] - Detox or Rehab [facility] Level of Care: Medically Managed Detox Regimen/Protocol: Methadone Breathalyzer - Breathalyzer Breathalyzer: 0 Urine Drug Screen - Test Device Lot number: [id number] Expiration date: 08/23/20 - Control Is test valid?: Yes - Results Drug screen NEGATIVE: No Urine drug screen results: ZAC-Cocaine, FEN-Fentanyl, MOP-Opiates, BZO- Benzodiazepines Inpatient Rehab Admission - Rehab Decision to Admit Inpatient rehab admission?: No
[2019-01-10] MEDS ORDERED: MAGNESIUM CITRATE 300 ML BOTTLE PO PRN (12:07)
[2019-01-10] MEDS ORDERED: ACETAMINOPHEN 325 MG TABLET (FP) PO PRN ×2 (12:07)
[2019-01-10] MEDS ORDERED: MENTHOL/PHENOL 1 EACH UD MM PRN (12:07)
[2019-01-10] MEDS ORDERED: hydrOXYzine PAMOATE 25 MG CAPSULE (FP) PO PRN (12:07)
[2019-01-10] MEDS ORDERED: MAGNESIUM HYDROX 2400MG/30ML ORAL SUSPENSION 30 ML CUP PO PRN (12:07)
[2019-01-10] MEDS ORDERED: BISMUTH SUBSALICYLATE 524 MG/30 ML UD PO PRN (12:07)
[2019-01-10] MEDS ORDERED: METHOCARBAMOL 500 MG TABLET PO PRN (12:07)
[2019-01-10] MEDS ORDERED: cloNIDine HCL 0.1 MG TABLET PO PRN (12:07)
[2019-01-10] MEDS ORDERED: IBUPROFEN 400 MG TABLET (FP) PO PRN (12:07)
[2019-01-10] MEDS ORDERED: MAG HYDROX/AL HYDROX/SIMETH 30 ML UNIT-DOSE CUP PO PRN (12:07)
[2019-01-10] MEDS ORDERED: MELATONIN 5 MG TABLETS PO PRN (12:07)
[2019-01-10] MEDS ORDERED: METHADONE HCL 10 MG TABLET (FOR DETOX USE ONLY) PO ONE ×2 (13:45→23:00)
[2019-01-10] MEDS: NICOTINE 21 MG/24 HOURS TOPICAL PATCH TD SCH (14:17)
--- NOTE | 2019-01-10 14:42 | CONSULT ---
[facility] Psychiatric Consult - Data Date of interview: 01/10/19 Admission source: [facility] Identifying data: This is one of multiple admissions to [facility] for this 59 y/ o male self-referred for detoxification treatment (heroin, cocaine). Interviewed at [address] [place] [address]. Patient is single (common-law), a father of four, homeless (senior care), unemployed and supported on SSI benefits. Substance Abuse History: Discussed in this session. Details in the following segment of [facility] report : Smoking history: Current every day smoker. Have you smoked in the past 12 months: Yes. Aproximately how many cigarettes per day: 10. Cigars Per Day: 0. Hx Chewing Tobacco Use: No. Initiated information on smoking cessation: Yes. 'Breaking Loose' booklet given: 01/10/19. - Substance & Tx. History. Hx Alcohol Use: No. Hx Substance Use: Yes. Substance Use Type : Cocaine, Heroin. Hx Substance Use Treatment: Yes ([facility] 11/26/17 to 12/03/17 ). - Substances abused. Heroin. Other (specify): SNIFF. Frequency: Daily. Amount used: 11 BAGS. Age of first use: 14. Date of last use: . Cocaine. Substance route: Inhalation. Frequency: Daily. Amount used: 40$. Age of first use: 14. Date of last use: 01/09/19 Medical History: Remarkable with a history of poliomyelitis (from age 1) + weakness of right leg. Psychiatric History: Patient met with a psychiatrist for the first time, in 2010 , at [facility] (admission for detoxification). Patient was reportedly prescribed seroquel for insomnia. Mr Nielsen presents with a history of two psychiatric hospitalizations (December 2016) at [facility] and [facility]. Diagnosed with Schizoaffective Disorder. Placed on a regimen of wellbutrin XL 150 mg/day + seroquel 200 mg/hs + trazodone 100 mg/hs. Patient reports that he is currentlty seeing a psychiatrist at a mental health clinic in the [place]. Denies history of suicide attempts. Physical/Sexual Abuse/Trauma History: Patient denies. Additional Comment: Urine drug screen results: ZAC-Cocaine, FEN-Fentanyl, MOP- Opiates, BZO-Benzodiazepines. Noted. Mental Status Exam - Mental Status Exam Alert and Oriented to: Time, Place, Person Cognitive Function: Good Patient Appearance: Unkempt, Disheveled Mood: Nervous, Withdrawn, Anxious Affect: Mood Congruent, Constricted Patient Behavior: Fatigued, Appropriate, Cooperative Speech Pattern: Clear Voice Loudness: Normal Thought Process: Goal Oriented Thought Disorder: Not Present Hallucinations: Denies Suicidal Ideation: Denies Homicidal Ideation: Denies Insight/Judgement: Poor Sleep: Poorly, Difficulty falling asleep Appetite: Good Gait/Station: Other (not observed; patient resting in bed) Psychiatric Findings - Problem List ([place] 1, 2,3) (1) Opioid dependence with withdrawal Status: Acute (2) Cocaine dependence Status: Chronic Qualifiers: Substance use status: in withdrawal Qualified Code(s): F14.23 - Cocaine dependence with withdrawal (3) Nicotine dependence Status: Chronic Qualifiers: Nicotine product type: cigarettes Substance use status: in withdrawal Qualified Code(s): F17.213 - Nicotine dependence, cigarettes, with withdrawal (4) Schizoaffective disorder Status: Chronic Qualifiers: Schizoaffective disorder type: unspecified Qualified Code(s): F25.9 - Schizoaffective disorder, unspecified (5) Insomnia Status: Chronic Qualifiers: Insomnia type: unspecified Qualified Code(s): G47.00 - Insomnia, unspecified - Initial Treatment Plan Initial Treatment Plan: Psychoeducation. Sleep hygiene. Detoxification in progress. Support. NA meetings. Medications : seroquel 100 mg po hs (reduced) + trazodone 100 mg po hs (reduced). Side effects/benefits of both drugs are discussed with the patient. Made aware, in particular, of risk of priapism and metabolic syndrome. Patient is in agreement with this plan of care. Consent ( verbal) given to MD. Brown.
[2019-01-10 17:19] LABS: HEMATOCRIT 47.5 % (35.4-49); HEMOGLOBIN 15.8 GM/dL (11.7-16.9); MCH 29.4 pg (25.7-33.7); MCHC 33.2 g/dl (32.0-35.9); MEAN CELL VOLUME 88.5 fl (80-96); MEAN PLT VOLUME 9.1 fl (7.5-11.1); PLATELET COUNT 291 K/MM3 (134-434); RBC 5.37 M/mm3 (4.00-5.60); RDW 15.9 % (11.9-15.9); WHITE BLOOD COUNT 8.2 K/mm3 (4.0-10.0)
[2019-01-10 17:30] LABS: ALBUMIN 3.6 g/dl (3.4-5.0); ALK PHOS 82 U/L (45-117); ANION GAP 5 MMOL/L (8-16); BILIRUBIN,TOTAL 0.7 mg/dL (0.2-1); BLOOD UREA NITROGEN 15 mg/dL (7-18); CALCIUM 9.4 mg/dL (8.5-10.1); CHLORIDE 107 mmol/L (98-107); CO2 24 mmol/L (21-32); CREATININE 0.7 mg/dL (0.55-1.3); GLUCOSE,RANDOM 74 mg/dL (74-106); POTASSIUM 4.1 mmol/L (3.5-5.1); SGOT/AST 12 U/L (15-37); SGPT/ALT 24 U/L (13-61); SODIUM 136 mmol/L (136-145); TOT PROT 7.5 g/dl (6.4-8.2)
[2019-01-10] MEDS: THIAMINE HCL 100 MG TABLET (FP) PO SCH (22:20)
[2019-01-10] MEDS: traZODone HCL 100 MG TABLET (FP) PO SCH (22:20)
[2019-01-10] MEDS: QUEtiapine FUMARATE 100 MG TABLET (FP) PO SCH (22:21)
[2019-01-10 23:55] LABS: PH,URINE 5.5 (5.0-8.0); URINE APPEARANCE CLEAR; URINE BILIRUBIN NEGATIVE (NEGATIVE); URINE COLOR YELLOW; URINE GLUCOSE (UA) NEGATIVE (NEGATIVE); URINE KETONE TRACE (NEGATIVE); URINE LEUK ESTERASE NEGATIVE (NEGATIVE); URINE NITRITE NEGATIVE (NEGATIVE); URINE PROTEIN NEGATIVE (NEGATIVE); URINE UROBILINOGEN 0.2 mg/dL (0.2-1.0)
[2019-01-11] MEDS ORDERED: METHADONE HCL 10 MG TABLET (FOR DETOX USE ONLY) PO ONE (10:00)
[2019-01-11] MEDS: PRENATAL VITAMINS W/ FOLIC ACID TABLET (FP) PO SCH (10:13)
[2019-01-11] MEDS: NICOTINE 21 MG/24 HOURS TOPICAL PATCH TD SCH (10:14)
--- NOTE | 2019-01-11 16:37 | PN ---
BHS COWS - Scale Resting Pulse: 1= [place] 81-100 Sweatin= Chills/Flushing Restless Observation: 0= Sits Still Pupil Size: 0= Normal to Room Light Bone or Joint Aches: 2= Severe Diffuse Aches Runny Nose/ Eye Tearin= None GI Upset > 30mins: 0= None Tremor Observation of Outstretched Hands: 2= Slight Tremor Visible Yawning Observation: 1= 1-2x During Session Anxiety or Irritability: 2=Irritable/Anxious Goose Flesh Skin: 3=Piloerection COWS Score: 12 BHS Progress Note (SOAP) Subjective: Tremors, Body Aches, Anxious, Fatigue. Objective: PATIENT A & O X 3, OBSERVED AMBULATING ON UNIT UNASSISTED. IN NO ACUTE DISTRESS. 01/11/19 16:34 Vital Signs Temperature 97.4 F L 01/11/19 13:43 Pulse Rate 75 01/11/19 13:43 Respiratory Rate 18 01/11/19 13:43 Blood Pressure 102/61 01/11/19 13:43 O2 Sat by Pulse Oximetry (%) Laboratory Tests 01/10/19 01/10/19 01/10/19 12:00 12:00 12:00 WBC 8.2 RBC 5.37 Hgb 15.8 Hct 47.5 MCV 88.5 MCH 29.4 MCHC 33.2 RDW 15.9 Plt Count 291 MPV 9.1 Sodium 136 Potassium 4.1 Chloride 107 Carbon Dioxide 24 Anion Gap 5 L BUN 15 Creatinine 0.7 Creat Clearance w eGFR 114.65 Random Glucose 74 Calcium 9.4 Total Bilirubin 0.7 AST 12 L ALT 24 Alkaline Phosphatase 82 Total Protein 7.5 Albumin 3.6 Urine Color Urine Appearance Urine pH Ur Specific [place] Urine Protein Urine Glucose (UA) Urine Ketones Urine Blood Urine Nitrite Urine Bilirubin Urine Urobilinogen Ur Leukocyte Esterase RPR Titer Nonreactive 01/10/19 21:23 WBC RBC Hgb Hct MCV MCH MCHC RDW Plt Count MPV Sodium Potassium Chloride Carbon Dioxide Anion Gap BUN Creatinine Creat Clearance w eGFR Random Glucose Calcium Total Bilirubin AST ALT Alkaline Phosphatase Total Protein Albumin Urine Color Yellow Urine Appearance Clear Urine pH 5.5 Ur Specific [place] 1.031 Urine Protein Negative Urine Glucose (UA) Negative Urine Ketones Trace H Urine Blood Negative Urine Nitrite Negative Urine Bilirubin Negative Urine Urobilinogen 0.2 Ur Leukocyte Esterase Negative RPR Titer LABS NOTED. Assessment: 01/11/19 16:36 WITHDRAWAL SYMPTOMS. Plan: CONTINUE DETOX. INCREASE DAILY PO FLUID / WATER INTAKE.
[2019-01-11] MEDS: THIAMINE HCL 100 MG TABLET (FP) PO SCH (22:11)
[2019-01-11] MEDS: traZODone HCL 100 MG TABLET (FP) PO SCH (22:11)
[2019-01-11] MEDS: QUEtiapine FUMARATE 100 MG TABLET (FP) PO SCH (22:11)
[2019-01-12] MEDS ORDERED: METHADONE HCL 10 MG TABLET (FOR DETOX USE ONLY) PO ONE (10:00)
[2019-01-12] MEDS: PRENATAL VITAMINS W/ FOLIC ACID TABLET (FP) PO SCH (10:18)
[2019-01-12] MEDS: NICOTINE 21 MG/24 HOURS TOPICAL PATCH TD SCH (10:18)
--- NOTE | 2019-01-12 11:24 | PN ---
BHS COWS - Scale Resting Pulse: 0= [place] 80 or Below Sweatin= Chills/Flushing Restless Observation: 0= Sits Still Pupil Size: 1= Pupils >than Normal Bone or Joint Aches: 1= Mild Discomfort Runny Nose/ Eye Tearin= Nasal Congestion GI Upset > 30mins: 1= Stomach Cramp Tremor Observation of Outstretched Hands: 1= Tremor [place], Not Seen Yawning Observation: 2= >3x During Session Anxiety or Irritability: 2=Irritable/Anxious Goose Flesh Skin: 0=Smooth Skin COWS Score: 10 BHS Progress Note (SOAP) Subjective: report doing better today mild headache tolerate food and fluid well Objective: 01/12/19 11:25 Vital Signs Temperature 97.3 F L 01/12/19 09:11 Pulse Rate 66 01/12/19 09:11 Respiratory Rate 18 01/12/19 09:11 Blood Pressure 95/55 L 01/12/19 09:11 O2 Sat by Pulse Oximetry (%) Laboratory Last Values WBC 8.2 K/mm3 (4.0-10.0) 01/10/19 12:00 RBC 5.37 M/mm3 (4.00-5.60) 01/10/19 12:00 Hgb 15.8 GM/dL (11.7-16.9) 01/10/19 12:00 Hct 47.5 % (35.4-49) 01/10/19 12:00 MCV 88.5 fl (80-96) 01/10/19 12:00 MCH 29.4 pg (25.7-33.7) 01/10/19 12:00 MCHC 33.2 g/dl (32.0-35.9) 01/10/19 12:00 RDW 15.9 % (11.9-15.9) 01/10/19 12:00 Plt Count 291 K/MM3 (134-434) 01/10/19 12:00 MPV 9.1 fl (7.5-11.1) 01/10/19 12:00 Sodium 136 mmol/L (136-145) 01/10/19 12:00 Potassium 4.1 mmol/L (3.5-5.1) 01/10/19 12:00 Chloride 107 mmol/L (98-107) 01/10/19 12:00 Carbon Dioxide 24 mmol/L (21-32) 01/10/19 12:00 Anion Gap 5 MMOL/L (8-16) L 01/10/19 12:00 BUN 15 mg/dL (7-18) 01/10/19 12:00 Creatinine 0.7 mg/dL (0.55-1.3) 01/10/19 12:00 Creat Clearance w eGFR 114.65 (>60) 01/10/19 12:00 Random Glucose 74 mg/dL (74-106) 01/10/19 12:00 Calcium 9.4 mg/dL (8.5-10.1) 01/10/19 12:00 Total Bilirubin 0.7 mg/dL (0.2-1) 01/10/19 12:00 AST 12 U/L (15-37) L 01/10/19 12:00 ALT 24 U/L (13-61) 01/10/19 12:00 Alkaline Phosphatase 82 U/L (45-117) 01/10/19 12:00 Total Protein 7.5 g/dl (6.4-8.2) 01/10/19 12:00 Albumin 3.6 g/dl (3.4-5.0) 01/10/19 12:00 Urine Color Yellow 01/10/19 21:23 Urine Appearance Clear 01/10/19 21:23 Urine pH 5.5 (5.0-8.0) 01/10/19 21:23 Ur Specific [place] 1.031 (1.010-1.035) 01/10/19 21:23 Urine Protein Negative (NEGATIVE) 01/10/19 21:23 Urine Glucose (UA) Negative (NEGATIVE) 01/10/19 21:23 Urine Ketones Trace (NEGATIVE) H 01/10/19 21:23 Urine Blood Negative (NEGATIVE) 01/10/19 21:23 Urine Nitrite Negative (NEGATIVE) 01/10/19 21: Urine Bilirubin Negative (NEGATIVE) 01/10/19 21: Urine Urobilinogen 0.2 mg/dL (0.2-1.0) 01/10/19 21:23 Ur Leukocyte Esterase Negative (NEGATIVE) 01/10/19 21:23 RPR Titer Nonreactive (NONREACTIVE) 01/10/19 12:00 lab noted Assessment: 01/12/19 11:26 withdrawal sx Plan: continue detox
[2019-01-12] MEDS: QUEtiapine FUMARATE 100 MG TABLET (FP) PO SCH (22:08)
[2019-01-12] MEDS: THIAMINE HCL 100 MG TABLET (FP) PO SCH (22:08)
[2019-01-12] MEDS: traZODone HCL 100 MG TABLET (FP) PO SCH (22:08)
[2019-01-13] MEDS ORDERED: METHADONE HCL 10 MG TABLET (FOR DETOX USE ONLY) PO ONE (10:00)
[2019-01-13] MEDS: PRENATAL VITAMINS W/ FOLIC ACID TABLET (FP) PO SCH (10:27)
[2019-01-13] MEDS: NICOTINE 21 MG/24 HOURS TOPICAL PATCH TD SCH (10:28)
--- NOTE | 2019-01-13 16:10 | PN ---
BHS COWS - Scale Resting Pulse: 0= [place] 80 or Below Sweatin= Chills/Flushing Restless Observation: 0= Sits Still Pupil Size: 0= Normal to Room Light Bone or Joint Aches: 1= Mild Discomfort Runny Nose/ Eye Tearin= None GI Upset > 30mins: 0= None Tremor Observation of Outstretched Hands: 0= None Yawning Observation: 1= 1-2x During Session Anxiety or Irritability: 2=Irritable/Anxious Goose Flesh Skin: 0=Smooth Skin COWS Score: 5 BHS Progress Note (SOAP) Subjective: Sweating (Mild), Body Aches (Mild). Objective: PATIENT A & O X 3, OBSERVED AMBULATING ON UNIT UNASSISTED WITH ASSISTANCE OF A CANE. IN NO ACUTE DISTRESS. 01/13/19 16:09 Vital Signs Temperature 97.0 F L 01/13/19 13:17 Pulse Rate 74 01/13/19 13:17 Respiratory Rate 18 01/13/19 13:17 Blood Pressure 128/71 01/13/19 13:17 O2 Sat by Pulse Oximetry (%) Laboratory Tests 01/10/19 01/10/19 01/10/19 12:00 12:00 12:00 WBC 8.2 RBC 5.37 Hgb 15.8 Hct 47.5 MCV 88.5 MCH 29.4 MCHC 33.2 RDW 15.9 Plt Count 291 MPV 9.1 Sodium 136 Potassium 4.1 Chloride 107 Carbon Dioxide 24 Anion Gap 5 L BUN 15 Creatinine 0.7 Creat Clearance w eGFR 114.65 Random Glucose 74 Calcium 9.4 Total Bilirubin 0.7 AST 12 L ALT 24 Alkaline Phosphatase 82 Total Protein 7.5 Albumin 3.6 Urine Color Urine Appearance Urine pH Ur Specific [place] Urine Protein Urine Glucose (UA) Urine Ketones Urine Blood Urine Nitrite Urine Bilirubin Urine Urobilinogen Ur Leukocyte Esterase RPR Titer Nonreactive 01/10/19 21:23 WBC RBC Hgb Hct MCV MCH MCHC RDW Plt Count MPV Sodium Potassium Chloride Carbon Dioxide Anion Gap BUN Creatinine Creat Clearance w eGFR Random Glucose Calcium Total Bilirubin AST ALT Alkaline Phosphatase Total Protein Albumin Urine Color Yellow Urine Appearance Clear Urine pH 5.5 Ur Specific [place] 1.031 Urine Protein Negative Urine Glucose (UA) Negative Urine Ketones Trace H Urine Blood Negative Urine Nitrite Negative Urine Bilirubin Negative Urine Urobilinogen 0.2 Ur Leukocyte Esterase Negative RPR Titer LABS NOTED. Assessment: 01/13/19 16:09 WITHDRAWAL SYMPTOMS. Plan: CONTINUE DETOX. PATIENT SCHEDULED FOR D/C TOMORROW.
[2019-01-13] MEDS: QUEtiapine FUMARATE 100 MG TABLET (FP) PO SCH (22:16)
[2019-01-13] MEDS: THIAMINE HCL 100 MG TABLET (FP) PO SCH (22:16)
[2019-01-13] MEDS: traZODone HCL 100 MG TABLET (FP) PO SCH (22:16)
[2019-01-14] MEDS ORDERED: METHADONE HCL 5 MG TABLET (FOR DETOX USE ONLY) PO ONE (06:00)
[2019-01-14 09:27] VITALS: BP 131/74; PULSE 80; TEMP 96.7
[2019-01-14] MEDS: PRENATAL VITAMINS W/ FOLIC ACID TABLET (FP) PO SCH (10:18)
[2019-01-14] MEDS: NICOTINE 21 MG/24 HOURS TOPICAL PATCH TD SCH (10:18)
--- NOTE | 2019-01-14 13:27 | DS ---
[facility] Detox Discharge Summary Admission Date: 01/10/19 Discharge Date: 01/14/19 - History Present History: Cocaine Dependence, Opioid Dependence Additional Comments: PATIENT GOING TO [facility] FOR AFTERCARE. PATIENT WAS DISCHARGED FROM DETOX UNIT TO BE TAKEN OVER TO REHAB UNIT IN STABLE MEDICAL CONDITION. Pertinent Past History: Nicotine Dependence, Weight Loss, Insomnia, History Of Polio, History Of Hemiparesis, Use Of Cane As An Ambulatory Aid, History Of Schizoaffective Disorder. - Physical Exam Results Vital Signs: Vital Signs Temperature 96.7 F L 01/14/19 09:27 Pulse Rate 80 01/14/19 09:27 Respiratory Rate 18 01/14/19 09:27 Blood Pressure 131/74 01/14/19 09:27 O2 Sat by Pulse Oximetry (%) Pertinent Admission Physical Exam Findings: WITHDRAWAL SYMPTOMS. Laboratory Tests 01/10/19 01/10/19 01/10/19 12:00 12:00 12:00 WBC 8.2 RBC 5.37 Hgb 15.8 Hct 47.5 MCV 88.5 MCH 29.4 MCHC 33.2 RDW 15.9 Plt Count 291 MPV 9.1 Sodium 136 Potassium 4.1 Chloride 107 Carbon Dioxide 24 Anion Gap 5 L BUN 15 Creatinine 0.7 Creat Clearance w eGFR 114.65 Random Glucose 74 Calcium 9.4 Total Bilirubin 0.7 AST 12 L ALT 24 Alkaline Phosphatase 82 Total Protein 7.5 Albumin 3.6 Urine Color Urine Appearance Urine pH Ur Specific [place] Urine Protein Urine Glucose (UA) Urine Ketones Urine Blood Urine Nitrite Urine Bilirubin Urine Urobilinogen Ur Leukocyte Esterase RPR Titer Nonreactive 01/10/19 21:23 WBC RBC Hgb Hct MCV MCH MCHC RDW Plt Count MPV Sodium Potassium Chloride Carbon Dioxide Anion Gap BUN Creatinine Creat Clearance w eGFR Random Glucose Calcium Total Bilirubin AST ALT Alkaline Phosphatase Total Protein Albumin Urine Color Yellow Urine Appearance Clear Urine pH 5.5 Ur Specific [place] 1.031 Urine Protein Negative Urine Glucose (UA) Negative Urine Ketones Trace H Urine Blood Negative Urine Nitrite Negative Urine Bilirubin Negative Urine Urobilinogen 0.2 Ur Leukocyte Esterase Negative RPR Titer LABS NOTED. - Treatment Hospital Course: Detox Protocol Followed, Detoxed Safely, Responded well, Discharged Condition Good, Rehab Referral Accepted Patient has Accepted a Rehab Referral to: [facility] ([place], [place]). - Medication Discharge Medications: Ambulatory Orders Quetiapine Fumarate [Seroquel -] 150 mg PO BID #120 tablet 12/03/17 traZODone HCL [Desyrel -] 200 mg PO HS #60 tablet 12/03/17 - Diagnosis (1) Opioid dependence with withdrawal Current Visit: Yes Status: Acute (2) Cocaine dependence Current Visit: Yes Status: Chronic Qualifiers: Substance use status: in withdrawal Qualified Code(s): F14.23 - Cocaine dependence with withdrawal (3) Insomnia Current Visit: Yes Status: Chronic Qualifiers: Insomnia type: unspecified Qualified Code(s): G47.00 - Insomnia, unspecified (4) Hemiparesis Current Visit: Yes Status: Chronic (5) Polio Current Visit: Yes Status: Chronic (6) Use of cane as ambulatory aid Current Visit: Yes Status: Chronic (7) Nicotine dependence Current Visit: Yes Status: Chronic Qualifiers: Nicotine product type: cigarettes Substance use status: in withdrawal Qualified Code(s): F17.213 - Nicotine dependence, cigarettes, with withdrawal (8) Schizoaffective disorder Current Visit: Yes Status: Chronic Qualifiers: Schizoaffective disorder type: unspecified Qualified Code(s): F25.9 - Schizoaffective disorder, unspecified - AMA Did Patient Leave Against Medical Advice: No
== END 2019-01-14 12:56 | disposition other institution (70) | DRG 773 ==
LOC: YASAS 10:36 → Y3N 13:04
PROVIDERS: ADMIT Surgery; ATTEND Surgery
PROC: HZ2ZZZZ Detoxification Services for Substance Abuse Treatment (ICD-10-PCS; principal; 2019-01-10)
DX: F11.23 Opioid dependence with withdrawal (principal); F14.20 Cocaine dependence, uncomplicated; F17.213 Nicotine dependence, cigarettes, with withdrawal; F20.1 Disorganized schizophrenia; G47.00 Insomnia, unspecified; G81.91 Hemiplegia, unspecified affecting right dominant side; R26.2 Difficulty in walking, not elsewhere classified; Z99.89 Dependence on other enabling machines and devices; Z86.12 Personal history of poliomyelitis; Z91.013 Allergy to seafood
CPT/HCPCS: 36415; 80053; 81003; 85027; 86593

== ENCOUNTER 2019-01-14 13:34 | Inpatient (IN) | payer OTHER ==
--- NOTE | 2019-01-14 13:32 | HP ---
[facility]NAN[facility] Rehab Assess/Revision - Admission History Admitted to Rehab from: [facility] Date of Admission to Rehab: 01/14/2019 - Vital signs Vital Signs: NOTED; STABLE. - Findings Detox History & Physical reviewed: Yes Concur with findings: Yes Comments/Additional Findings: PATIENT'S MEDICAL / MEDICATION HISTORY REVIEWED PRIOR TO DISCHARGE FROM DETOX UNIT. PATIENT WAS DISCHARGED FROM DETOX UNIT TO BE TAKEN OVER TO REHAB UNIT IN STABLE MEDICAL CONDITION. Inpatient Rehab Admission - Rehab Decision to Admit Inpatient rehab admission?: Yes - Initial Determination Are CD services needed?: Yes Free of communicable disease: Yes Not in need of hospitalization: Yes - Rehab Admission Criteria Previous failed treatment: Yes Poor recovery environment: Yes Comorbidities: Yes Lacks judgement: No Patient is meeting Inpatient Rehab admission criteria:: Yes
[~2019-01-14 13:34] MED LIST: ACETAMINOPHEN 325 MG TABLET (FP) PO PRN; IBUPROFEN 400 MG TABLET (FP) PO PRN; LOPERAMIDE HCL 2 MG CAPSULE PO PRN; MAG HYDROX/AL HYDROX/SIMETH 30 ML UNIT-DOSE CUP PO PRN; MAGNESIUM CITRATE 300 ML BOTTLE PO PRN; MAGNESIUM HYDROX 2400MG/30ML ORAL SUSPENSION 30 ML CUP PO PRN; MENTHOL/PHENOL 1 EACH UD MM PRN; P-EPHED 60MG/TRIPROLIDI 2.5MG TABLET PO PRN; guaiFENesin 200 MG/10 ML 10 ML UNIT-DOSE CUPS PO PRN
[2019-01-14] MEDS: THIAMINE HCL 100 MG TABLET (FP) PO SCH (21:45)
[2019-01-14] MEDS: MELATONIN 5 MG TABLETS PO PRN (21:46)
[2019-01-15] MEDS: PRENATAL VITAMINS W/ FOLIC ACID TABLET (FP) PO SCH (09:52)
[2019-01-15] MEDS: NICOTINE 21 MG/24 HOURS TOPICAL PATCH TD SCH (09:53)
[2019-01-15] MEDS: THIAMINE HCL 100 MG TABLET (FP) PO SCH (21:36)
[2019-01-15] MEDS: MELATONIN 5 MG TABLETS PO PRN (21:38)
[2019-01-16] MEDS: PRENATAL VITAMINS W/ FOLIC ACID TABLET (FP) PO SCH (10:00)
[2019-01-16] MEDS: NICOTINE 21 MG/24 HOURS TOPICAL PATCH TD SCH (10:01)
--- NOTE | 2019-01-16 13:18 | CONSULT ---
[facility] Psychiatric Consult - Data Date of interview: 01/16/19 Admission source: [facility] Identifying data: Patient is a 59 year old male, in a common law relationship, father four, unemployed, supported by [facility] and resides in a group home. This is one of multiple admissions for patient. Patient admitted to for opiate dependence. Substance Abuse History: - Smoking Cessation. Smoking history: Current every day smoker. Have you smoked in the past 12 months: Yes. Aproximately how many cigarettes per day: 10. Cigars Per Day: 0. Hx Chewing Tobacco Use: No. Initiated information on smoking cessation: Yes. 'Breaking Loose' booklet given : 01/10/19. - Substance & Tx. History. Hx Alcohol Use: No. Hx Substance Use: Yes. Substance Use Type: Cocaine, Heroin. Hx Substance Use Treatment: Yes ( [facility] 11/26/17 to 12/03/17). - Substances abused. Heroin. Other (specify) : SNIFF. Frequency: Daily. Amount used: 11 BAGS. Age of first use: 14. Date of last use: 01/09/19. Cocaine. Substance route: Inhalation. Frequency: Daily. Amount used: 40$. Age of first use: 14. Date of last use: 01/09/19 Medical History: Remarkable with a history of poliomyelitis (from age 1) + weakness of right leg Psychiatric History: Patient presents as a poor historian. Patient states his first psychiatric contact was in 2015 at [facility] after reporting depressive symptoms. As per previous entries, patient's first psychiatric contact occured in 2010 when he was admitted to [facility] for inpt detox. He was prescribed seroquel for insomnia. Mr. Nielsen reports h/o two psychiatric hospitalizations, at [place] and [facility]. States his admissions were secondary to suicidal ideations. His most recent admission was at [facility] in 2016 after attempting to jump off a roof. Mr. Nielsen reports a history of schizoaffective disorder. As per Dr. Medellin's note on 01/19, patient has endorsed command auditory hallucinations to hurt himself in the past. Patient denies current outpatient psychiatric care. He reports h/o accepting seroquel and trazodone. Patient seen by Dr. Velásquez on detox on and was ordered seroquel 100mg and trazodone 100mg HS. At present, patient reports stable mood but is experiencing difficulty sleeping. No manic, depressive or psychotic symptoms noted. Physical/Sexual Abuse/Trauma History: denies. Mental Status Exam - Mental Status Exam Alert and Oriented to: Time, Place, Person Cognitive Function: Good Patient Appearance: Well Groomed Mood: Euthymic Affect: Mood Congruent Patient Behavior: Cooperative Speech Pattern: Appropriate Voice Loudness: Moderately Soft/Quiet Thought Process: Goal Oriented Thought Disorder: Not Present Hallucinations: Denies Suicidal Ideation: Denies Homicidal Ideation: Denies Insight/Judgement: Poor Sleep: Poorly Appetite: Fair Muscle strength/Tone: Normal Gait/Station: Normal Psychiatric Findings - Problem List ([place] 1, 2,3) (1) Cocaine dependence Current Visit: Yes Status: Chronic Qualifiers: Substance use status: uncomplicated Qualified Code(s): F14.20 - Cocaine dependence, uncomplicated (2) Opioid dependence Current Visit: Yes Status: Chronic (3) Substance-induced sleep disorder Current Visit: Yes Status: Acute (4) Nicotine dependence Current Visit: Yes Status: Chronic Qualifiers: Nicotine product type: cigarettes Substance use status: uncomplicated Qualified Code(s): F17.210 - Nicotine dependence, cigarettes, uncomplicated (5) Schizoaffective disorder Current Visit: Yes Status: Chronic Qualifiers: Schizoaffective disorder type: unspecified Qualified Code(s): F25.9 - Schizoaffective disorder, unspecified - Initial Treatment Plan Initial Treatment Plan: Psychoeducation provided. Rehab in progress. Will order Seroquel 100mg + Trazodone 100mg HS. Benefits and side effects discussed. Verbal consent given.
[2019-01-16] MEDS: QUEtiapine FUMARATE 100 MG TABLET (FP) PO SCH (21:37)
[2019-01-16] MEDS: THIAMINE HCL 100 MG TABLET (FP) PO SCH (21:37)
[2019-01-16] MEDS: traZODone HCL 100 MG TABLET (FP) PO SCH (21:38)
[2019-01-17] MEDS: PRENATAL VITAMINS W/ FOLIC ACID TABLET (FP) PO SCH (09:55)
[2019-01-17] MEDS: NICOTINE 21 MG/24 HOURS TOPICAL PATCH TD SCH (09:55)
[2019-01-17] MEDS: traZODone HCL 100 MG TABLET (FP) PO SCH (21:56)
[2019-01-17] MEDS: THIAMINE HCL 100 MG TABLET (FP) PO SCH (21:56)
[2019-01-17] MEDS: QUEtiapine FUMARATE 100 MG TABLET (FP) PO SCH (21:56)
[2019-01-18] MEDS: PRENATAL VITAMINS W/ FOLIC ACID TABLET (FP) PO SCH (10:24)
[2019-01-18] MEDS: NICOTINE 21 MG/24 HOURS TOPICAL PATCH TD SCH (10:24)
[2019-01-18] MEDS: THIAMINE HCL 100 MG TABLET (FP) PO SCH (21:49)
[2019-01-18] MEDS: traZODone HCL 100 MG TABLET (FP) PO SCH (21:49)
[2019-01-18] MEDS: QUEtiapine FUMARATE 100 MG TABLET (FP) PO SCH (21:49)
[2019-01-19] MEDS: PRENATAL VITAMINS W/ FOLIC ACID TABLET (FP) PO SCH (10:21)
[2019-01-19] MEDS: NICOTINE 21 MG/24 HOURS TOPICAL PATCH TD SCH (10:21)
[2019-01-19] MEDS: traZODone HCL 100 MG TABLET (FP) PO SCH (21:38)
[2019-01-19] MEDS: QUEtiapine FUMARATE 100 MG TABLET (FP) PO SCH (21:38)
[2019-01-19] MEDS: THIAMINE HCL 100 MG TABLET (FP) PO SCH (21:38)
[2019-01-20] MEDS: PRENATAL VITAMINS W/ FOLIC ACID TABLET (FP) PO SCH (10:26)
[2019-01-20] MEDS: NICOTINE 21 MG/24 HOURS TOPICAL PATCH TD SCH (10:27)
[2019-01-20] MEDS: QUEtiapine FUMARATE 100 MG TABLET (FP) PO SCH (22:11)
[2019-01-20] MEDS: traZODone HCL 100 MG TABLET (FP) PO SCH (22:11)
[2019-01-20] MEDS: THIAMINE HCL 100 MG TABLET (FP) PO SCH (22:11)
[2019-01-21] MEDS: NICOTINE 21 MG/24 HOURS TOPICAL PATCH TD SCH (09:56)
[2019-01-21] MEDS: PRENATAL VITAMINS W/ FOLIC ACID TABLET (FP) PO SCH (09:56)
--- NOTE | 2019-01-21 12:36 | PN ---
Psychiatric Progress Note Vital Signs: Vital Signs Period Temp Pulse Resp BP Sys/Gaines Pulse Ox Last 24 Hr 97.5 F 79 16-18 114/77 Date of Session: 01/21/19 Chief Complaint:: "I can't sleep." HPI: Patient coherent, alert and oriented X3. Patient appears fatigue as he reports sleeping approximately 1-2 hours last night. ROS: Patient coherent, alert and oriented X3. Current Medications: Active Medications Generic Name Dose Route Start Last Admin Trade Name Freq PRN Reason Stop Dose Admin Acetaminophen 650 mg 01/14/19 13:32 Tylenol - PO Q4H PRN FEVER Al Hydroxide/Mg Hydroxide 30 ml 01/14/19 13:32 Mylanta Oral Suspension - PO Q6H PRN DYSPEPSIA Eucalyptus/Menthol/Phenol/Sorbitol 1 each 01/14/19 13:32 Cepastat Lozenge - MM Q4H PRN SORE THROAT Guaifenesin 10 ml 01/14/19 13:32 Robitussin - PO Q6H PRN COUGH Ibuprofen 400 mg 01/14/19 13:32 Motrin - PO Q6H PRN Pain Level 4-6 Loperamide HCl 4 mg 01/14/19 13:32 Imodium - PO Q6H PRN DIARRHEA Magnesium Citrate 300 ml 01/14/19 13:32 Citroma - PO Q48H PRN CONSTIPATION Magnesium Hydroxide 30 ml 01/14/19 13:32 Milk Of Magnesia - PO DAILY PRN CONSTIPATION Melatonin 5 mg 01/14/19 22:00 01/15/19 21:38 Melatonin PO 5 mg HS PRN Administration INSOMNIA Nicotine 21 mg 01/15/19 10:00 01/21/19 09:56 Nicoderm Patch - TD 21 mg DAILY LAMONT Administration Multivit/Folic Acid/Iron 1 tab 01/15/19 10:00 01/21/19 09:56 Vitamins (Sjr) - PO 1 tab DAILY LAMONT Administration Pseudoephedrine/Triprolidine 1 combo 01/14/19 13:32 Actifed - PO TID PRN NASAL CONGESTION Quetiapine Fumarate 100 mg 01/16/19 22:00 01/20/19 22:11 Seroquel - PO 100 mg HS LAMONT Administration Thiamine HCl 100 mg 01/14/19 22:00 01/20/19 22:11 Vitamin B1 - PO 100 mg HS LAMONT Administration Trazodone HCl 150 mg 01/21/19 22:00 Desyrel - PO HS [facility] Medication(s) Change(s): Will d/c Trazodone 100mg and order Trazodone 150mg HS. Current Side Effect: No Lab tests ordered: No Lab tests reviewed: Yes Provider note:: Patient reports poor sleep. States he is slept 1-2 hours last night and has been sleeping poorly for the last several days. Patient is currently prescribed trazodone 100mg + Seroquel 100mg. He reports taking Trazodone 200mg HS + Seroquel 150mg HS while at home. Patient agreeable in accepting Trazodone 150mg HS. Patient encouraged to accept melatonin 5mg for insomina. Patient educated on the importance of sleep hygiene. Benefits and side effects discussed. Verbal consent given. Total face to face time:: 25 Mental Status Exam - Mental Status Exam Alert and Oriented to: Time, Place, Person Cognitive Function: Good Patient Appearance: Well Groomed Mood: Euthymic Affect: Mood Congruent Patient Behavior: Fatigued Speech Pattern: Appropriate Voice Loudness: Mildly Soft/Quiet Thought Process: Goal Oriented Thought Disorder: Not Present Hallucinations: Denies Suicidal Ideation: Denies Homicidal Ideation: Denies Insight/Judgement: Poor Sleep: Poorly Appetite: Fair Muscle strength/Tone: Normal Gait/Station: Other (Patient ambulates with a cane.) Psychiatric Treatment Plan - Problem List (1) Cocaine dependence Current Visit: Yes (2) Opioid dependence Current Visit: Yes (3) Substance-induced sleep disorder Current Visit: Yes (4) Nicotine dependence Current Visit: Yes Qualifiers: Nicotine product type: cigarettes Substance use status: in withdrawal Qualified Code(s): F17.213 - Nicotine dependence, cigarettes, with withdrawal (5) Schizoaffective disorder Current Visit: Yes Qualifiers: Schizoaffective disorder type: unspecified Qualified Code(s): F25.9 - Schizoaffective disorder, unspecified
[2019-01-21] MEDS: traZODone HCL 50 MG TABLET (FP) PO SCH (21:59)
[2019-01-21] MEDS: QUEtiapine FUMARATE 100 MG TABLET (FP) PO SCH (21:59)
[2019-01-21] MEDS: THIAMINE HCL 100 MG TABLET (FP) PO SCH (21:59)
[2019-01-21] MEDS: MELATONIN 5 MG TABLETS PO PRN (22:00)
[2019-01-22] MEDS: PRENATAL VITAMINS W/ FOLIC ACID TABLET (FP) PO SCH (10:18)
[2019-01-22] MEDS: NICOTINE 21 MG/24 HOURS TOPICAL PATCH TD SCH (10:18)
[2019-01-22] MEDS: traZODone HCL 50 MG TABLET (FP) PO SCH (21:40)
[2019-01-22] MEDS: MELATONIN 5 MG TABLETS PO PRN (21:40)
[2019-01-22] MEDS: THIAMINE HCL 100 MG TABLET (FP) PO SCH (21:40)
[2019-01-22] MEDS: QUEtiapine FUMARATE 100 MG TABLET (FP) PO SCH (21:40)
[2019-01-23] MEDS: PRENATAL VITAMINS W/ FOLIC ACID TABLET (FP) PO SCH (10:57)
[2019-01-23] MEDS: NICOTINE 21 MG/24 HOURS TOPICAL PATCH TD SCH (10:57)
--- NOTE | 2019-01-23 12:17 | PN ---
S Progress Note Note: PT REQUESTING MAT TREATMENT. PT HAS A HX OF OPIOID DEPENDENCE AND REPORTS HE WAS ON METHADONE IN THE PAST. PT REPORTS HE HAS NEVER BEEN ON SUBOXONE AND WANTS TO BE EVALUATED TO START. PT MET WITH HIS COUNSELOR TO ARRANGE FOR AFTERCARE AFTER REHAB.
[2019-01-23] MEDS: traZODone HCL 50 MG TABLET (FP) PO SCH (21:16)
[2019-01-23] MEDS: QUEtiapine FUMARATE 100 MG TABLET (FP) PO SCH (21:16)
[2019-01-23] MEDS: THIAMINE HCL 100 MG TABLET (FP) PO SCH (21:17)
[2019-01-23] MEDS: MELATONIN 5 MG TABLETS PO PRN (21:17)
[2019-01-24] MEDS: NICOTINE 21 MG/24 HOURS TOPICAL PATCH TD SCH (10:53)
[2019-01-24] MEDS: PRENATAL VITAMINS W/ FOLIC ACID TABLET (FP) PO SCH (10:53)
--- NOTE | 2019-01-24 11:47 | PN ---
[facility]HS COWS - Scale Resting Pulse: 0= AL 80 or Below Sweatin= Chills/Flushing Restless Observation: 0= Sits Still Pupil Size: 0= Normal to Room Light Bone or Joint Aches: 4=Acute Joint/Muscle Pain Runny Nose/ Eye Tearin= Runny Nose/Eyes GI Upset > 30mins: 0= None Tremor Observation of Outstretched Hands: 0= None Yawning Observation: 0= None Anxiety or Irritability: 1=Feels Anxious/Irritable Goose Flesh Skin: 3=Piloerection COWS Score: 11 BHS Progress Note (SOAP) Subjective: PT COMPLETED DETOX FROM HEROIN AND COCAINE BEFORE REFERRAL TO REHAB. PT REPORTS HE WAS ON SUBOXONE LAST YEAR BUT "I DID'T WENT NO MORE BECAUSE IT WAS TOO FAR"(SEE PNP RECORD BELOW). PT ALSO REPORTS HE WAS ON METHADOE 40 MG PO DAILY 2 YEARS AGO AND STOPPED. PT STATES HE WANTS TO TRY THE SUBOXONE AGAIN. SUBSTANCE USE HX:HEROIN SNIFFED 11 BAGS DAILY SINCE AGE 14, LAST USE WAS . COCAINE $40 INHALED DAILY SINCE AGE 14, LAST USED ON 01/09/19. PMHx:RIGHT HEMIPARESIS WITH USE OF CANE S/P POLIO PSYCH HX:SCHIZOPHRENIA BIPOLAR DISORDER. PT MET WITH HIS COUNSELOR BOB AGUILAR WHO HAS ARRANGED FOR PT'S CD AFTERCARE AND CLINIC AT [facility] AT [address] [place] [address] TO CONTINUE SUBOXONE MAT AFTER STARTING HERE. Others' Prescriptions Patient Name: Sacha Nielsen Date: 1960 Address: [address] [place] [id number] Sex: Male Rx Written Rx Dispensed Drug Quantity Days Supply Prescriber Name 02/14/2018 02/14/2018 suboxone 4 mg-1 mg sl film 60 30 Vicki Villalba Objective: 01/24/19 11:56 Vital Signs 01/24/19 06:45 Temperature 97.9 F Pulse Rate 71 Respiratory 16 Rate Blood Pressure 139/84 LABS DONE ON 01/10/19 REVIEWED GROSSLY WNL UDS:(+)METHAMPHETAMINE; (-)OPIOIDS CARDIAC: S1 S2 RRR LUNGS:CTA ABDOMEN:SOFT, NT ,(+)BS EXTREMITIES:NO EDEMA;RIGHT LEG WEAKNESS Assessment: 01/24/19 12:18 OPIOID DEPENDENCE W/S CRAVINGS MAT Plan: DISCUSSED WITH PT ALL TREATMENT MODALITY INCLUDING RISKS AND SIDE EFFECTS. PT SIGNED CONSENT AND A COPY PLACED IN PT'S CHART. PT IS AGREEABLE TO POC RE-EVAL FOR INCREASED DOSE BUILD UP.
[2019-01-24] MEDS ORDERED: BUPRENORPHINE/NALOXONE 2 MG/0.5 MG FILM PACKET SL ONE (12:30)
--- NOTE | 2019-01-24 12:43 | PN ---
BHS Progress Note Note: C/O ITCHY, SCALY FACIAL RASH EXAM:SCALY RED RASH ON FACE AND BEARDED AREAS. A:ATOPIC DERMATITIS PLAN:HYDRORCORTISONE CREAM 1% APPLY DAILY
[2019-01-24] MEDS: HYDROCORTISONE 1% TOPICAL OINT 30 GM TUBE TP SCH (13:40)
[2019-01-24] MEDS: THIAMINE HCL 100 MG TABLET (FP) PO SCH (21:46)
[2019-01-24] MEDS: QUEtiapine FUMARATE 100 MG TABLET (FP) PO SCH (21:47)
[2019-01-24] MEDS: traZODone HCL 50 MG TABLET (FP) PO SCH (21:50)
[2019-01-24] MEDS: MELATONIN 5 MG TABLETS PO PRN (21:51)
[2019-01-25] MEDS: HYDROCORTISONE 1% TOPICAL OINT 30 GM TUBE TP SCH (09:53)
[2019-01-25] MEDS: NICOTINE 21 MG/24 HOURS TOPICAL PATCH TD SCH (09:53)
[2019-01-25] MEDS: PRENATAL VITAMINS W/ FOLIC ACID TABLET (FP) PO SCH (09:54)
[2019-01-25] MEDS: BUPRENORPHINE/NALOXONE 2 MG/0.5 MG FILM PACKET SL SCH (09:54)
[2019-01-25] MEDS: THIAMINE HCL 100 MG TABLET (FP) PO SCH (21:58)
[2019-01-25] MEDS: MELATONIN 5 MG TABLETS PO PRN (21:58)
[2019-01-25] MEDS: QUEtiapine FUMARATE 100 MG TABLET (FP) PO SCH (21:58)
[2019-01-25] MEDS: traZODone HCL 50 MG TABLET (FP) PO SCH (21:59)
[2019-01-26] MEDS: PRENATAL VITAMINS W/ FOLIC ACID TABLET (FP) PO SCH (11:10)
[2019-01-26] MEDS: NICOTINE 21 MG/24 HOURS TOPICAL PATCH TD SCH (11:10)
[2019-01-26] MEDS: HYDROCORTISONE 1% TOPICAL OINT 30 GM TUBE TP SCH (11:10)
[2019-01-26] MEDS: BUPRENORPHINE/NALOXONE 2 MG/0.5 MG FILM PACKET SL SCH (11:12)
[2019-01-26] MEDS: THIAMINE HCL 100 MG TABLET (FP) PO SCH (22:00)
[2019-01-26] MEDS: traZODone HCL 50 MG TABLET (FP) PO SCH (22:00)
[2019-01-26] MEDS: QUEtiapine FUMARATE 100 MG TABLET (FP) PO SCH (22:00)
[2019-01-26] MEDS: MELATONIN 5 MG TABLETS PO PRN (22:00)
[2019-01-27 06:54] VITALS: PULSE 75; TEMP 97.8
[2019-01-27] MEDS: BUPRENORPHINE/NALOXONE 2 MG/0.5 MG FILM PACKET SL SCH (10:46)
[2019-01-27] MEDS: NICOTINE 21 MG/24 HOURS TOPICAL PATCH TD SCH (10:46)
[2019-01-27] MEDS: HYDROCORTISONE 1% TOPICAL OINT 30 GM TUBE TP SCH (10:46)
[2019-01-27] MEDS: PRENATAL VITAMINS W/ FOLIC ACID TABLET (FP) PO SCH (10:46)
--- NOTE | 2019-01-27 15:25 | PN ---
S Progress Note Note: C/O LEFT EYE REDNESS AND EXUDATE. Vital Signs - 24 hr 01/27/19 01/27/19 01/27/19 00:30 03:30 06:53 Temperature 97.8 F Pulse Rate 75 Respiratory 16 16 17 Rate Blood Pressure 130/74 EYES:LEFT EYE INJECTED WITH SMALL EXUDATE AT INNER CORNER OF EYE. A:R/O CONJUCTIVITIS PLAN:ERYTHROMYCIN 0.5% OPHTH EYE OINTMENT APPLY TO LEFT EYE DAILY.
[2019-01-27] MEDS: ERYTHROMYCIN 0.5% OPHTHALMIC OINTMENT 3.5 GM TUBE OD SCH (17:06)
[2019-01-27] MEDS: traZODone HCL 50 MG TABLET (FP) PO SCH (21:43)
[2019-01-27] MEDS: QUEtiapine FUMARATE 100 MG TABLET (FP) PO SCH (21:43)
[2019-01-27] MEDS: MELATONIN 5 MG TABLETS PO PRN (21:44)
[2019-01-27] MEDS: THIAMINE HCL 100 MG TABLET (FP) PO SCH (21:44)
--- NOTE | 2019-01-28 06:28 | PN ---
[facility] Progress Note Note: Patient is scheduled for discharge today. Scripts for 30 days supply of medications(Seroquel 100 mg/hs, Trazadone 150 mg/hs) are electronically transmitted to [facility] at [address], [place] [address]
[2019-01-28 07:08] VITALS: BP 117/88
[2019-01-28] MEDS: ERYTHROMYCIN 0.5% OPHTHALMIC OINTMENT 3.5 GM TUBE OD SCH (09:10)
[2019-01-28] MEDS: PRENATAL VITAMINS W/ FOLIC ACID TABLET (FP) PO SCH (09:10)
[2019-01-28] MEDS: BUPRENORPHINE/NALOXONE 2 MG/0.5 MG FILM PACKET SL SCH (09:10)
[2019-01-28] MEDS: NICOTINE 21 MG/24 HOURS TOPICAL PATCH TD SCH (09:10)
[2019-01-28] MEDS: HYDROCORTISONE 1% TOPICAL OINT 30 GM TUBE TP SCH (09:11)
[2019-01-28] MEDS ORDERED: BUPRENORPHINE/NALOXONE 2 MG/0.5 MG FILM PACKET SL ONE (09:16)
--- NOTE | 2019-01-28 09:21 | PN ---
S Progress Note Note: PT COMPLETED REHAB AND DISCHARGED TODAY. PT WAS SEEN BY HIS COUNSELOR BOB AGUILAR TODAY AND HAS REFERRED PT TO [facility] ON [address], [place] AND TO FOLLOW UP WITH CONTINUED MAT TREATMENT. PT WILL FOLLOW UP WITH MEDICAL MANAGEMENT WITH [facility]. Home Medications Medication Instructions Recorded Quetiapine Fumarate [Seroquel -] 100 mg PO BID 01/14/19 traZODone HCL [Desyrel -] 100 mg PO HS 01/14/19 Buprenorphine HCl/Naloxone HCl 1 each SL DAILY #7 film MDD 1 01/28/19 [Suboxone 4 mg-1 mg Sl Film] Quetiapine Fumarate [Seroquel] 100 mg PO HS #30 tablet 01/28/19 Trazodone HCl 150 mg PO HS #30 tablet 01/28/19 Vital Signs 01/28/19 01/28/19 03:30 07:07 Temperature 97.8 F Pulse Rate 75 Respiratory 16 18 Rate Blood Pressure 117/88 NAD MEDICALLY STABLE PLAN:FOLLOW UP WITH CD AFTERCARE RECOMMENDATIONS TODAY. FOLLOW UP WITH PCP WITHIN 1-2 WEEKS AFTER DISCHARGE.
[2019-01-28] MEDS ORDERED: BUPRENORPHINE/NALOXONE 2 MG/0.5 MG FILM PACKET SL SCH (10:00)
[2019-01-29] MEDS ORDERED: BUPRENORPHINE/NALOXONE 2 MG/0.5 MG FILM PACKET SL SCH (10:00)
== END 2019-01-28 09:25 | disposition home or self-care (01) | DRG 772 ==
LOC: YASAS 13:34 → Y5N 13:35
PROVIDERS: ADMIT Neuromusculoskeletal Medicine & OMM; ATTEND Neuromusculoskeletal Medicine & OMM
PROC: HZ42ZZZ Group Counseling for Substance Abuse Treatment, Cognitive-Behavioral (ICD-10-PCS; principal; 2019-01-14)
DX: F11.20 Opioid dependence, uncomplicated (principal); F14.20 Cocaine dependence, uncomplicated; F17.210 Nicotine dependence, cigarettes, uncomplicated; F19.282 Other psychoactive substance dependence with psychoactive substance-induced sleep disorder; F25.9 Schizoaffective disorder, unspecified; L20.9 Atopic dermatitis, unspecified; A80.9 Acute poliomyelitis, unspecified; H10.31 Unspecified acute conjunctivitis, right eye; R26.89 Other abnormalities of gait and mobility; Z99.89 Dependence on other enabling machines and devices; Z51.81 Encounter for therapeutic drug level monitoring

== ENCOUNTER 2019-03-31 12:37 | Inpatient (IN) | payer OTHER ==
[2019-03-31 14:19] VITALS: BMI 28.2
--- NOTE | 2019-03-31 17:09 | HP ---
CIWA Score Nausea/Vomitin Muscle Tremors: 3 Anxiety: 2 Agitation: 1-Slight > Activity Paroxysmal Sweats: 1-Minimal Palms Moist Orientation: 0-Oriented Tacttile Disturbances: 2-Mild Itch/Numbness/Burn Auditory Disturbances: 0-None Visual Disturbances: 0-None Headache: 1-Very Mild CIWA-Ar Total Score: 12 - Admission Criteria OASAS Guidelines: Admission for Medically Managed Detox: Requires at least one of the followin. CIWA greater than 12 2. Seizures within the past 24 hours 3. Delirium tremens within the past 24 hours 4. Hallucinations within the past 24 hours 5. Acute intervention needed for co occurring medical disorder 6. Acute intervention needed for co occurring psychiatric disorder 7. Severe withdrawal that cannot be handled at a lower level of care (continued vomiting, continued diarrhea, abnormal vital signs) requiring intravenous medication and/or fluids 8. Admission ROS [facility] Chief Complaint: 59 y/o M with PMH insomnia, childhood polio (uses cane) who presents for alcohol detox. Allergies/Adverse Reactions: Allergies Allergy/AdvReac Type Severity Reaction Status Date / Time Fish Containing Products Allergy Severe Rash Verified 01/10/19 11:05 No Known Drug Allergies Allergy Unknown Verified 01/10/19 11:05 History of Present Illness: 59 y/o M with PMH insomnia, childhood polio (uses cane) who presents for alcohol detox. States that this AM he had 1 pint of Baccardi Rum. Has drank 1 pint/day since age 14. Longest sobriety 6 months. Without past hx seizures or legal action. Has good support network - his sister. He is triggered when he hangs out in his old neighborhood, as his friends bring pints of liquor for him to drink. Alcohol makes him feel down. When he withdraws, he "gets the shakes" and feels nervous and has nausea/vomiting. Was in detox and rehab for heroin previously in 2018, as well as in 2018, 2017, etc here at [facility]. States that he hasn't used heroin since 12/2018. However, he has used methadone "off the street" in the interim. PMH: insomnia PSxH: denies meds: seroquel allergies: fish- rash FH: denies SH: smokes 10 cigs/day since age 14. alcohol use as above. denies other ingestions claims that he quit heroin in December Limitations: No Limitations - Ebola screening Have you traveled outside of the country in the last 21 days: No Have you had contact with anyone from an Ebola affected area: No Have you been sick,other than usual withdrawal symptoms: No Do you have a fever: No - Review of Systems Constitutional: No Symptoms Reported EENT: reports: No Symptoms Reported Respiratory: reports: No Symptoms reported Cardiac: reports: No Symptoms Reported GI: reports: No Symptoms Reported : reports: No Symptoms Reported Musculoskeletal: reports: No Symptoms Reported, Other (+ambulates with cane) Integumentary: reports: No Symptoms Reported Neuro: reports: No Symptoms reported Endocrine: reports: No Symptoms Reported Hematology: reports: No Symptoms Reported Psychiatric: reports: Orientated x3 Patient History - Patient Medical History Hx Anemia: No Hx Asthma: No Hx Chronic Obstructive Pulmonary Disease (COPD): No Hx Cancer: No Hx Cardiac Disorders: No Hx Congestive Heart Failure: No Hx Hypertension: No Hx Hypercholesterolemia: No Hx Pacemaker: No HX Cerebrovascular Accident: No Hx Seizures: No Hx Dementia: No Hx Diabetes: No Hx Gastrointestinal Disorders: No Hx Liver Disease: No Hx Genitourinary Disorders: No Hx Sexually Transmitted Disorders: No Hx Renal Disease (ESRD): No Hx Thyroid Disease: No Hx Human Immunodeficiency Virus (HIV): No (12/10 negative last) Hx Hepatitis C: No Hx Depression: Yes Hx Suicide Attempt: No Hx Bipolar Disorder: No Hx Schizophrenia: Yes - Patient Surgical History Past Surgical History: No Hx Neurologic Surgery: No Hx Cataract Extraction: No Hx Cardiac Surgery: No Hx Lung Surgery: No Hx Breast Surgery: No Hx Breast Biopsy: No Hx Abdominal Surgery: No Hx Appendectomy: No Hx Cholecystectomy: No Hx Genitourinary Surgery: No Hx Section: No Hx Orthopedic Surgery: No Hx Hysterectomy: No Anesthesia Reaction: No - PPD History Documented Results: Negative w/proof Date: 01/12/19 Results: 0 mm. PPD to be Administered?: No - Reproductive History Patient is a Female of Child Bearing Age (11 -55 yrs old): No - Smoking Cessation Smoking history: Current every day smoker Have you smoked in the past 12 months: Yes Aproximately how many cigarettes per day: 10 Cigars Per Day: 0 Hx Chewing Tobacco Use: No Initiated information on smoking cessation: Yes 'Breaking Loose' booklet given: 03/31/19 - Substance & Tx. History Hx Alcohol Use: Yes Hx Substance Use: Yes Substance Use Type: Alcohol Hx Substance Use Treatment: Yes ([facility] detox and rehab heroin 2019, 2017, 2017) - Substances abused Heroin Other (specify): SNIFF Frequency: Daily Amount used: 11 BAGS Age of first use: 14 Date of last use: 01/09/19 Cocaine Frequency: No use in 30 days Amount used: 40$ Age of first use: 14 Date of last use: 01/09/19 Alcohol Substance route: Oral Frequency: Daily Amount used: 1 pint barcadi Age of first use: 14 Date of last use: 03/31/19 Family Disease History - Family Disease History Family Disease History: [place]: Sister (), Other: Father (deceaded,ALCOHOL) , Mother (), Sister Admission Physical Exam [facility] - Vital Signs Vital Signs: Vital Signs - 24 hr 03/31/19 14:02 Temperature 97.2 F L Pulse Rate 78 Respiratory 20 Rate Blood Pressure 106/69 - Physical General Appearance: Yes: Within Normal Limits HEENTM: Yes: Within Normal Limits Respiratory: Yes: Within Normal Limits, Normal Breath Sounds Neck: Yes: Supple Breast: Yes: Breast Exam Deferred Cardiology: Yes: Within Normal Limits, Regular Rate, S1, S2 Abdominal: Yes: Within Normal Limits, Soft Genitourinary: Yes: Within Normal Limits Back: Yes: Within Normal Limits Musculoskeletal: Yes: Within Normal Limits, Other Extremities: Yes: Within Normal Limits Neurological: Yes: distribution superintendent II-XII NML intact Integumentary: Yes: Dry, Warm Lymphatic: Yes: Within Normal Limits - Diagnostic (1) Alcohol dependence Current Visit: No Status: Acute (2) Alcohol dependence with uncomplicated withdrawal Current Visit: No Status: Acute (3) Hemiparesis Current Visit: No Status: Chronic (4) Insomnia Current Visit: No Status: Chronic Qualifiers: Insomnia type: unspecified Qualified Code(s): G47.00 - Insomnia, unspecified (5) Polio Current Visit: No Status: Chronic Cleared for Admission [facility] - Detox or Rehab [facility] Level of Care: Medically Supervised Detox Regimen/Protocol: Librium Breathalyzer - Breathalyzer Breathalyzer: 0 Urine Drug Screen - Test Device Lot number: [id number] Expiration date: 01/21/21 - Control Is test valid?: Yes - Results Drug screen NEGATIVE: No Urine drug screen results: MTD-Methadone, BZO-Benzodiazepines Inpatient Rehab Admission - Rehab Decision to Admit Inpatient rehab admission?: No
[2019-03-31] MEDS ORDERED: chlordiazePOXIDE HCL 25 MG CAPSULE PO PRN (17:41)
[2019-03-31] MEDS ORDERED: ACETAMINOPHEN 325 MG TABLET (FP) PO PRN (17:42)
[2019-03-31] MEDS ORDERED: MAG HYDROX/AL HYDROX/SIMETH 30 ML UNIT-DOSE CUP PO PRN (17:42)
[2019-03-31] MEDS ORDERED: BISMUTH SUBSALICYLATE 524 MG/30 ML UD PO PRN (17:42)
[2019-03-31] MEDS ORDERED: MAGNESIUM HYDROX 2400MG/30ML ORAL SUSPENSION 30 ML CUP PO PRN (17:42)
[2019-03-31] MEDS ORDERED: IBUPROFEN 400 MG TABLET (FP) PO PRN (17:42)
[2019-03-31] MEDS ORDERED: hydrOXYzine HCL 25 MG TABLET (FP) PO PRN (17:42)
[2019-03-31] MEDS ORDERED: MENTHOL/PHENOL 1 EACH UD MM PRN (17:42)
[2019-03-31] MEDS: NICOTINE 7 MG/24 HOURS TOPICAL PATCH TD SCH (18:21)
[2019-03-31] MEDS: THIAMINE HCL 100 MG TABLET (FP) PO SCH (22:05)
[2019-03-31] MEDS: chlordiazePOXIDE HCL 25 MG CAPSULE PO SCH (22:06)
[2019-03-31] MEDS: CLOTRIMAZOLE 1% CREAM 15 GM TUBE TP SCH (22:07)
[2019-04-01] MEDS: chlordiazePOXIDE HCL 25 MG CAPSULE PO SCH ×4 (06:56→22:39)
--- NOTE | 2019-04-01 10:36 | CONSULT ---
[facility] Psychiatric Consult - Data Date of interview: 04/01/19 Admission source: [facility] Identifying data: Patient is a 59 year old single male, unemployed, homeless, and is supported by [facility]. This is one of multiple admissions for patient. Patient admitted to for alcohol dependence. Substance Abuse History: Smoking Cessation. Smoking history: Current every day smoker. Have you smoked in the past 12 months: Yes. Aproximately how many cigarettes per day: 10. Cigars Per Day: 0. Hx Chewing Tobacco Use: No. Initiated information on smoking cessation: Yes. 'Breaking Loose' booklet given : 03/31/19. - Substance & Tx. History. Hx Alcohol Use: Yes. Hx Substance Use : Yes. Substance Use Type: Alcohol. Hx Substance Use Treatment: Yes ([facility] detox and rehab heroin 2019, 2017, 2016). - Substances abused. Heroin. Other (specify): SNIFF. Frequency: Daily. Amount used: 11 BAGS. Age of first use: 14. Date of last use: 01/09/19. Cocaine. Frequency: No use in 30 days. Amount used: 40$. Age of first use: 14. Date of last use: 01/09/19. * * Alcohol. Substance route: Oral. Frequency: Daily. Amount used: 1 pint barcadi. Age of first use: 14. Date of last use: 03/31/19 Medical History: Remarkable with a history of poliomyelitis (from age 1) + weakness of right leg Psychiatric History: Patient is an unreliable historian. Mr. Nielsen denies h/o psychiatric hospitalization, outpatient care and suicide attempt. As per my previous entry, Patient stated his first psychiatric contact was in 2015 at [facility] after reporting depressive symptoms. As per additional psychiatric entries patient's first psychiatric contact occured in 2010 when he was admitted to [facility] for inpt detox. He was prescribed seroquel for insomnia. Mr. Nielsen reports h/o two psychiatric hospitalizations, at [place] and [facility]. States his admissions were secondary to suicidal ideations. His most recent admission was at [facility] in 2015 after attempting to jump off a roof. Mr. Nielsen reports a history of schizoaffective disorder. As per Dr. Medellin's note on 01/19/17, patient has endorsed command auditory hallucinations to hurt himself in the past. Patient denies current outpatient psychiatric care. He reports h/o accepting seroquel and trazodone. Patient seen by Dr. Velásquez on detox on 01/10/19 and was ordered seroquel 100mg and trazodone 100mg HS. Patient has provided conflicting information throughout his several admissions to detox. At present he reports stable mood but is experiencing difficulty sleeping. Physical/Sexual Abuse/Trauma History: denies. Mental Status Exam - Mental Status Exam Alert and Oriented to: Time, Place, Person Cognitive Function: Fair Patient Appearance: Unkempt Mood: Withdrawn Affect: Mood Congruent Patient Behavior: Fatigued Speech Pattern: Appropriate Voice Loudness: Moderately Soft/Quiet Thought Process: Goal Oriented Thought Disorder: Not Present Hallucinations: Denies Suicidal Ideation: Denies Homicidal Ideation: Denies Insight/Judgement: Poor Sleep: Poorly Appetite: Fair Muscle strength/Tone: Normal Gait/Station: Other (Ambulates with a cane.) Psychiatric Findings - Problem List ([place] 1, 2,3) (1) Alcohol dependence Status: Acute (2) Alcohol dependence with uncomplicated withdrawal Status: Acute (3) Schizoaffective disorder Status: Chronic Qualifiers: Schizoaffective disorder type: unspecified Qualified Code(s): F25.9 - Schizoaffective disorder, unspecified - Initial Treatment Plan Initial Treatment Plan: Psychoeducation provided. Detoxification in progress. Will order Seroquel 100mg HS. Benefits and side effects discussed. Verbal consent given.
[2019-04-01] MEDS: PRENATAL VITAMINS W/ FOLIC ACID TABLET (FP) PO SCH (10:57)
[2019-04-01] MEDS: NICOTINE 7 MG/24 HOURS TOPICAL PATCH TD SCH (10:59)
[2019-04-01] MEDS: CLOTRIMAZOLE 1% CREAM 15 GM TUBE TP SCH ×2 (11:00→22:39)
--- NOTE | 2019-04-01 12:02 | PN ---
BHS CIWA - CIWA Score Nausea/Vomitin-Mild Nausea/No Vomiting Muscle Tremors: 2 Anxiety: 3 Agitation: 2 Paroxysmal Sweats: 1-Minimal Palms Moist Orientation: 0-Oriented Tacttile Disturbances: 1-Very Mild Itch/Numbness Auditory Disturbances: 0-None Visual Disturbances: 0-None Headache: 1-Very Mild CIWA-Ar Total Score: 11 BHS Progress Note (SOAP) Subjective: patient has methadone in urine upon admission report last heroin used was 12/2018 tired hesitate to talk about alcohol addiction tremor irritable Objective: 04/01/19 12:03 Vital Signs Temperature 97.5 F L 04/01/19 09:06 Pulse Rate 63 04/01/19 09:06 Respiratory Rate 18 04/01/19 09:06 Blood Pressure 93/65 04/01/19 09:06 O2 Sat by Pulse Oximetry (%) 04/01/19 12:03 lab pending Assessment: 04/01/19 12:04 alcohol withdrawal sx Plan: continue alcohol detox
[2019-04-01 12:14] LABS: BILIRUBIN,TOTAL 0.7 mg/dL (0.2-1); BLOOD UREA NITROGEN 14.8 mg/dL (7-18); CALCIUM 8.9 mg/dL (8.5-10.1); CREATININE 0.9 mg/dL (0.55-1.3); POTASSIUM 4.3 mmol/L (3.5-5.1); TOT PROT 6.7 g/dl (6.4-8.2)
[2019-04-01 12:27] LABS: HEMATOCRIT 41.3 % (35.4-49); HEMOGLOBIN 14.1 GM/dL (11.7-16.9); MCH 29.9 pg (25.7-33.7); MCHC 34.1 g/dl (32.0-35.9); MEAN CELL VOLUME 87.7 fl (80-96); MEAN PLT VOLUME 8.4 fl (7.5-11.1); PLATELET COUNT 345 K/MM3 (134-434); RBC 4.71 M/mm3 (4.00-5.60); RDW 14.1 % (11.9-15.9); WHITE BLOOD COUNT 5.3 K/mm3 (4.0-10.0)
--- NOTE | 2019-04-01 13:29 | PN ---
Teaching Attending Note Name of Resident: Bharti Link ATTENDING PHYSICIAN STATEMENT I saw and evaluated the patient. I reviewed the resident's note and discussed the case with the resident. I agree with the resident's findings and plan as documented. SUBJECTIVE: pt here for alcohol detox- states that he has a history of heroin use but now only occ uses methadone that he gets illicitly OBJECTIVE: Vital Signs - 24 hr 03/31/19 03/31/19 03/31/19 14:02 18:15 21:47 Temperature 97.2 F L 97 F L 98.8 F Pulse Rate 78 76 68 Respiratory 20 16 16 Rate Blood Pressure 106/69 111/66 107/68 04/01/19 04/01/19 04/01/19 00:30 03:30 06:47 Temperature 97.3 F L Pulse Rate 70 Respiratory 18 18 18 Rate Blood Pressure 101/57 L 04/01/19 04/01/19 09:06 13:03 Temperature 97.5 F L 97.0 F L Pulse Rate 63 72 Respiratory 18 18 Rate Blood Pressure 93/65 105/67 ambulates with cane- h/o polio ASSESSMENT AND PLAN: pt with recent use of alcohol- to be admitted for alcohol detox per protocol
[2019-04-01] MEDS: MELATONIN 5 MG TABLETS PO PRN (22:39)
[2019-04-01] MEDS: THIAMINE HCL 100 MG TABLET (FP) PO SCH (22:39)
[2019-04-01] MEDS: QUEtiapine FUMARATE 100 MG TABLET (FP) PO SCH (22:39)
--- NOTE | 2019-04-01 23:35 | PN ---
[facility] Progress Note Note: ASKED TO SEE CLIENT FOR REPORTED FALL. CLIENT STATES HE SLIPPED AND FELL ON HIS BUTTOCKS. DENIES HITTING HIS HEAD, DIZZINESS, SOB, C.P. Vital Signs A/O X3 NAD SEATED AT BED SIDE NCAT, PERRLA CV-RRR SKIN INTACT NO VISIBLE INJURIES EXTREMITIES RLE WEAKNESS (CHRONIC); NOTED AMBUALTING WITH CANE WITH UNSTEAADY GAIT DRAGGING RIGHT FOOT. Temperature 96.8 F L 04/01/19 23:10 Pulse Rate 77 04/01/19 23:10 Respiratory Rate 18 04/01/19 23:10 Blood Pressure 121/77 04/01/19 23:10 O2 Sat by Pulse Oximetry (%) S/P UNWITNESSED FALL CLIENT DENIES HEAD TRAUMA AND HAS DECLINED CT OF HEAD. fall protocol #1 wc for assist w/ ambulation cont to monitor for safety
[2019-04-02] MEDS: chlordiazePOXIDE HCL 25 MG CAPSULE PO SCH ×4 (06:45→22:03)
[2019-04-02] MEDS: NICOTINE 7 MG/24 HOURS TOPICAL PATCH TD SCH (10:56)
[2019-04-02] MEDS: PRENATAL VITAMINS W/ FOLIC ACID TABLET (FP) PO SCH (10:56)
[2019-04-02] MEDS: CLOTRIMAZOLE 1% CREAM 15 GM TUBE TP SCH ×2 (10:56→22:03)
--- NOTE | 2019-04-02 11:34 | PN ---
[facility] CIWA - CIWA Score Nausea/Vomitin-Mild Nausea/No Vomiting Muscle Tremors: 3 Anxiety: 2 Agitation: 2 Paroxysmal Sweats: 1-Minimal Palms Moist Orientation: 0-Oriented Tacttile Disturbances: 1-Very Mild Itch/Numbness Auditory Disturbances: 0-None Visual Disturbances: 0-None Headache: 0-None Present CIWA-Ar Total Score: 10 [facility] Progress Note (SOAP) Subjective: denies pain ambulating with cane assistance to bathroom weakness of the legs Objective: 04/02/19 11:34 Vital Signs Temperature 97.6 F 04/02/19 11:05 Pulse Rate 62 04/02/19 11:05 Respiratory Rate 18 04/02/19 11:05 Blood Pressure 92/51 L 04/02/19 11:05 O2 Sat by Pulse Oximetry (%) Laboratory Last Values WBC 5.3 K/mm3 (4.0-10.0) 04/01/19 08:30 RBC 4.71 M/mm3 (4.00-5.60) 04/01/19 08:30 Hgb 14.1 GM/dL (11.7-16.9) 04/01/19 08:30 Hct 41.3 % (35.4-49) 04/01/19 08:30 MCV 87.7 fl (80-96) 04/01/19 08:30 MCH 29.9 pg (25.7-33.7) 04/01/19 08:30 MCHC 34.1 g/dl (32.0-35.9) 04/01/19 08:30 RDW 14.1 % (11.9-15.9) D 04/01/19 08:30 Plt Count 345 K/MM3 (134-434) 04/01/19 08:30 MPV 8.4 fl (7.5-11.1) 04/01/19 08:30 Sodium 140 mmol/L (136-145) 04/01/19 08:30 Potassium 4.3 mmol/L (3.5-5.1) 04/01/19 08:30 Chloride 105 mmol/L (98-107) 04/01/19 08:30 Carbon Dioxide 29 mmol/L (21-32) 04/01/19 08:30 Anion Gap 6 MMOL/L (8-16) L 04/01/19 08:30 BUN 14.8 mg/dL (7-18) 04/01/19 08:30 Creatinine 0.9 mg/dL (0.55-1.3) 04/01/19 08:30 Est GFR (CKD-EPI)AfAm 106.46 04/01/19 08:30 Est GFR (CKD-EPI)NonAf 91.86 04/01/19 08:30 Random Glucose 94 mg/dL (74-106) 04/01/19 08:30 Calcium 8.9 mg/dL (8.5-10.1) 04/01/19 08:30 Total Bilirubin 0.7 mg/dL (0.2-1) 04/01/19 08:30 AST 18 U/L (15-37) 04/01/19 08:30 ALT 22 U/L (13-61) 04/01/19 08:30 Alkaline Phosphatase 74 U/L (45-117) 04/01/19 08:30 Total Protein 6.7 g/dl (6.4-8.2) 04/01/19 08:30 Albumin 3.0 g/dl (3.4-5.0) L 04/01/19 08:30 RPR Titer Nonreactive (NONREACTIVE) 04/01/19 08:30 lab noted Assessment: 04/02/19 11:34 alcohol withdrawal sx Plan: continue alcohol detox
[2019-04-02] MEDS: THIAMINE HCL 100 MG TABLET (FP) PO SCH (22:03)
[2019-04-02] MEDS: MELATONIN 5 MG TABLETS PO PRN (22:03)
[2019-04-02] MEDS: QUEtiapine FUMARATE 100 MG TABLET (FP) PO SCH (22:03)
[2019-04-03] MEDS ORDERED: chlordiazePOXIDE HCL 10 MG CAPSULE PO PRN
[2019-04-03] MEDS: chlordiazePOXIDE HCL 10 MG CAPSULE PO SCH ×4 (05:51→21:59)
[2019-04-03] MEDS: PRENATAL VITAMINS W/ FOLIC ACID TABLET (FP) PO SCH (10:25)
[2019-04-03] MEDS: CLOTRIMAZOLE 1% CREAM 15 GM TUBE TP SCH ×2 (10:26→21:59)
[2019-04-03] MEDS: NICOTINE 7 MG/24 HOURS TOPICAL PATCH TD SCH (10:28)
--- NOTE | 2019-04-03 12:11 | PN ---
S CIWA - CIWA Score Nausea/Vomitin-Mild Nausea/No Vomiting Muscle Tremors: 2 Anxiety: 2 Agitation: 1-Slight > Activity Paroxysmal Sweats: 1-Minimal Palms Moist Orientation: 0-Oriented Tacttile Disturbances: 0-None Auditory Disturbances: 0-None Visual Disturbances: 0-None Headache: 0-None Present CIWA-Ar Total Score: 7 S Progress Note (SOAP) Subjective: 59 years old male admitted on 03/31/19 for alcohol withdrawal sx long history of "stroke" weakness of the legs ambulate with cane encourage the patient to discuss aftercare with staff Objective: 04/03/19 12:23 Vital Signs Temperature 96.9 F L 04/03/19 09:20 Pulse Rate 63 04/03/19 09:20 Respiratory Rate 18 04/03/19 09:20 Blood Pressure 108/70 04/03/19 09:20 O2 Sat by Pulse Oximetry (%) Laboratory Last Values WBC 5.3 K/mm3 (4.0-10.0) 04/01/19 08:30 RBC 4.71 M/mm3 (4.00-5.60) 04/01/19 08:30 Hgb 14.1 GM/dL (11.7-16.9) 04/01/19 08:30 Hct 41.3 % (35.4-49) 04/01/19 08:30 MCV 87.7 fl (80-96) 04/01/19 08:30 MCH 29.9 pg (25.7-33.7) 04/01/19 08:30 MCHC 34.1 g/dl (32.0-35.9) 04/01/19 08:30 RDW 14.1 % (11.9-15.9) D 04/01/19 08:30 Plt Count 345 K/MM3 (134-434) 04/01/19 08:30 MPV 8.4 fl (7.5-11.1) 04/01/19 08:30 Sodium 140 mmol/L (136-145) 04/01/19 08:30 Potassium 4.3 mmol/L (3.5-5.1) 04/01/19 08:30 Chloride 105 mmol/L (98-107) 04/01/19 08:30 Carbon Dioxide 29 mmol/L (21-32) 04/01/19 08:30 Anion Gap 6 MMOL/L (8-16) L 04/01/19 08:30 BUN 14.8 mg/dL (7-18) 04/01/19 08:30 Creatinine 0.9 mg/dL (0.55-1.3) 04/01/19 08:30 Est GFR (CKD-EPI)AfAm 106.46 04/01/19 08:30 Est GFR (CKD-EPI)NonAf 91.86 04/01/19 08:30 Random Glucose 94 mg/dL (74-106) 04/01/19 08:30 Calcium 8.9 mg/dL (8.5-10.1) 04/01/19 08:30 Total Bilirubin 0.7 mg/dL (0.2-1) 04/01/19 08:30 AST 18 U/L (15-37) 04/01/19 08:30 ALT 22 U/L (13-61) 04/01/19 08:30 Alkaline Phosphatase 74 U/L (45-117) 04/01/19 08:30 Total Protein 6.7 g/dl (6.4-8.2) 04/01/19 08:30 Albumin 3.0 g/dl (3.4-5.0) L 04/01/19 08:30 RPR Titer Nonreactive (NONREACTIVE) 04/01/19 08:30 lab noted Assessment: 04/03/19 12:24 alcohol withdrawal sx Plan: continue alcohol detox
[2019-04-03] MEDS: THIAMINE HCL 100 MG TABLET (FP) PO SCH (21:59)
[2019-04-03] MEDS: QUEtiapine FUMARATE 100 MG TABLET (FP) PO SCH (21:59)
[2019-04-04] MEDS: chlordiazePOXIDE HCL 10 MG CAPSULE PO SCH ×2 (05:35→17:12)
[2019-04-04] MEDS: PRENATAL VITAMINS W/ FOLIC ACID TABLET (FP) PO SCH (10:34)
[2019-04-04] MEDS: NICOTINE 7 MG/24 HOURS TOPICAL PATCH TD SCH (10:36)
[2019-04-04] MEDS: CLOTRIMAZOLE 1% CREAM 15 GM TUBE TP SCH ×2 (10:47→21:46)
--- NOTE | 2019-04-04 11:09 | PN ---
[facility] CIWA - CIWA Score Nausea/Vomitin-No Nausea/No Vomiting Muscle Tremors: None Anxiety: 0-No Anxiety, at Ease Agitation: 1-Slight > Activity Paroxysmal Sweats: No Perspiration Orientation: 0-Oriented Tacttile Disturbances: 0-None Auditory Disturbances: 0-None Visual Disturbances: 0-None Headache: 0-None Present CIWA-Ar Total Score: 1 [facility] Progress Note (SOAP) Subjective: Patient denies current Withdrawal / Detox symptoms and reports that he feels well overall at this time. Objective: PATIENT A & O X 3, OBSERVED MOVING ABOUT DETOX UNIT IN A WHEELCHAIR. IN NO ACUTE DISTRESS. 04/04/19 11:07 Vital Signs Temperature 96.8 F L 04/04/19 11:01 Pulse Rate 68 04/04/19 11:01 Respiratory Rate 18 04/04/19 11:01 Blood Pressure 97/62 04/04/19 11:01 O2 Sat by Pulse Oximetry (%) Laboratory Tests 04/01/19 04/01/19 04/01/19 08:30 08:30 08:30 WBC 5.3 RBC 4.71 Hgb 14.1 Hct 41.3 MCV 87.7 MCH 29.9 MCHC 34.1 RDW 14.1 D Plt Count 345 MPV 8.4 Sodium 140 Potassium 4.3 Chloride 105 Carbon Dioxide 29 Anion Gap 6 L BUN 14.8 Creatinine 0.9 Est GFR (CKD-EPI)AfAm 106.46 Est GFR (CKD-EPI)NonAf 91.86 Random Glucose 94 Calcium 8.9 Total Bilirubin 0.7 AST 18 ALT 22 Alkaline Phosphatase 74 Total Protein 6.7 Albumin 3.0 L RPR Titer Nonreactive LABS NOTED. Assessment: 04/04/19 11:09 WITHDRAWAL SYMPTOMS. Plan: CONTINUE DETOX. NOTE: PATIENT TO BE SENT TO [facility] ER FOR FURTHER MEDICAL EVALUATION AFTER HE FEEL WHILE TRYING TO GET FROM HIS BED TO WHEELCHAIR. SEE FOLLOWING [facility] PROGRESS NOTE.
--- NOTE | 2019-04-04 11:19 | PN ---
[facility] Progress Note Note: PATIENT FELL WHILE TRYING TO GET UP FROM HIS BED TO GET INTO WHEELCHAIR. FALL WAS UNWITNESSED BY DETOX UNIT STAFF. PATIENT WAS FOUND BY VIDEOTAPE RECORDING ENGINEER SITTING UP ON FLOOR BETWEEN HIS BED AND WHEELCHAIR. PATIENT DENIES LOSS OF CONSCIOUSNESS AFTER FALL. PATIENT WAS ASSISTED BACK UP INTO WHEELCHAIR AFTER BY NURSE AND BY VIDEOTAPE RECORDING ENGINEER. PATIENT DENIES HEAD INJURY DURING FALL. PATIENT REPORTS THAT HE FELL DIRECTLY ON HIS BUTTOCKS, BUT DENIES PAIN IN THAT AREA AFTER FALL. NO WOUNDS, SWELLING, ERYTHEMA, OR UNUSUAL DISCHARGE NOTED ON PATIENT'S HEAD. PATIENT A & O X 3. PERRLA. VS: BP: 97/62; P: 68; RR: 18; T: 96.8. [facility] FALL PROTOCOL # [address] IMPLEMENTED. REPORT GIVEN TO DR. FELTON MARQUIS AT [facility] ER. PATIENT TO BE TAKEN TO [facility] VIA AMBULANCE FOR FURTHER MEDICAL EVALUATION. Miriam STRINGER NP
--- NOTE | 2019-04-04 18:27 | PN ---
[facility] Progress Note Note: pt returned from [facility] er , per d/c paperwork CT head done 04/04/19
[2019-04-04] MEDS: THIAMINE HCL 100 MG TABLET (FP) PO SCH (21:45)
[2019-04-04] MEDS: QUEtiapine FUMARATE 100 MG TABLET (FP) PO SCH (21:45)
[2019-04-05] MEDS ORDERED: chlordiazePOXIDE HCL 10 MG CAPSULE PO ONE (05:00)
[2019-04-05] MEDS: CLOTRIMAZOLE 1% CREAM 15 GM TUBE TP SCH ×2 (10:30→22:13)
[2019-04-05] MEDS: PRENATAL VITAMINS W/ FOLIC ACID TABLET (FP) PO SCH (10:32)
[2019-04-05] MEDS: NICOTINE 7 MG/24 HOURS TOPICAL PATCH TD SCH (10:32)
--- NOTE | 2019-04-05 14:03 | PN ---
S CIWA - CIWA Score Nausea/Vomitin-No Nausea/No Vomiting Muscle Tremors: None Anxiety: 2 Agitation: 0-Normal Activity Paroxysmal Sweats: No Perspiration Orientation: 0-Oriented Tacttile Disturbances: 1-Very Mild Itch/Numbness Auditory Disturbances: 0-None Visual Disturbances: 0-None Headache: 0-None Present CIWA-Ar Total Score: 3 [facility] Progress Note (SOAP) Subjective: Fatigue (Mild), Anxious (Mild). Patient denies Physical Pain after fall that experienced on Detox Unit yesterday (Patient was evaluated and Medically Evaluated and Cleared at [facility]). Objective: PATIENT A & O X 3, OBSERVED MOVING ABOUT DETOX UNIT IN WHEELCHAIR. IN NO ACUTE DISTRESS. 04/05/19 13:58 Vital Signs Temperature 96.1 F L 04/05/19 11:01 Pulse Rate 72 04/05/19 11:01 Respiratory Rate 18 04/05/19 11:01 Blood Pressure 96/60 04/05/19 11:01 O2 Sat by Pulse Oximetry (%) Laboratory Tests 04/01/19 04/01/19 04/01/19 08:30 08:30 08:30 WBC 5.3 RBC 4.71 Hgb 14.1 Hct 41.3 MCV 87.7 MCH 29.9 MCHC 34.1 RDW 14.1 D Plt Count 345 MPV 8.4 Sodium 140 Potassium 4.3 Chloride 105 Carbon Dioxide 29 Anion Gap 6 L BUN 14.8 Creatinine 0.9 Est GFR (CKD-EPI)AfAm 106.46 Est GFR (CKD-EPI)NonAf 91.86 Random Glucose 94 Calcium 8.9 Total Bilirubin 0.7 AST 18 ALT 22 Alkaline Phosphatase 74 Total Protein 6.7 Albumin 3.0 L RPR Titer Nonreactive LABS NOTED. Assessment: 04/05/19 13:59 WITHDRAWAL SYMPTOMS. HYPOTENSION. 04/05/19 14:03 Plan: ALTHOUGH PATIENT REPORTS THAT CURRENT WITHDRAWAL SYMPTOMS ARE MINIMAL IN DEGREE , PATIENT PERMITTED TO REMAIN ON DETOX UNIT UNTIL TOMORROW AM DUE TO LIMITATIONS IN PHYSICAL MOBILITY AND DUE TO LOW BLOOD PRESSURE NOTED ON LAST SEVERAL READINGS. AFTERCARE OPTIONS FOR PATIENT, INCLUDING REHAB, WILL BE CONSIDERED TOMORROW.
[2019-04-05] MEDS: QUEtiapine FUMARATE 100 MG TABLET (FP) PO SCH (22:13)
[2019-04-05] MEDS: THIAMINE HCL 100 MG TABLET (FP) PO SCH (22:13)
[2019-04-06] MEDS: NICOTINE 7 MG/24 HOURS TOPICAL PATCH TD SCH (10:33)
[2019-04-06] MEDS: PRENATAL VITAMINS W/ FOLIC ACID TABLET (FP) PO SCH (10:33)
[2019-04-06] MEDS: CLOTRIMAZOLE 1% CREAM 15 GM TUBE TP SCH ×2 (10:33→22:06)
--- NOTE | 2019-04-06 16:03 | PN ---
[facility] CIWA - CIWA Score Nausea/Vomitin-No Nausea/No Vomiting Muscle Tremors: 1-None Visible, but Anselmo Anxiety: 0-No Anxiety, at Ease Agitation: 0-Normal Activity Paroxysmal Sweats: No Perspiration Orientation: 0-Oriented Tacttile Disturbances: 0-None Auditory Disturbances: 0-None Visual Disturbances: 0-None Headache: 0-None Present CIWA-Ar Total Score: 1 S Progress Note (SOAP) Subjective: 59 years old male admitted on 03/31/19 for alcohol withdrawal sx ambulating with cane due to polio since age 1 fell on 04/04/19 evaluated by ER negative CT of the head return to detox on fall precaution doing well today continue experience weakness of the legs denies headaches no dizziness no nausea tolerate food and fluid wel patient has home health aid possible reinstated on Sunday Objective: 04/06/19 16:05 Vital Signs Temperature 98.1 F 04/06/19 13:52 Pulse Rate 68 04/06/19 13:52 Respiratory Rate 18 04/06/19 13:52 Blood Pressure 118/75 04/06/19 13:52 O2 Sat by Pulse Oximetry (%) Laboratory Last Values WBC 5.3 K/mm3 (4.0-10.0) 04/01/19 08:30 RBC 4.71 M/mm3 (4.00-5.60) 04/01/19 08:30 Hgb 14.1 GM/dL (11.7-16.9) 04/01/19 08:30 Hct 41.3 % (35.4-49) 04/01/19 08:30 MCV 87.7 fl (80-96) 04/01/19 08:30 MCH 29.9 pg (25.7-33.7) 04/01/19 08:30 MCHC 34.1 g/dl (32.0-35.9) 04/01/19 08:30 RDW 14.1 % (11.9-15.9) D 04/01/19 08:30 Plt Count 345 K/MM3 (134-434) 04/01/19 08:30 MPV 8.4 fl (7.5-11.1) 04/01/19 08:30 Sodium 140 mmol/L (136-145) 04/01/19 08:30 Potassium 4.3 mmol/L (3.5-5.1) 04/01/19 08:30 Chloride 105 mmol/L (98-107) 04/01/19 08:30 Carbon Dioxide 29 mmol/L (21-32) 04/01/19 08:30 Anion Gap 6 MMOL/L (8-16) L 04/01/19 08:30 BUN 14.8 mg/dL (7-18) 04/01/19 08:30 Creatinine 0.9 mg/dL (0.55-1.3) 04/01/19 08:30 Est GFR (CKD-EPI)AfAm 106.46 04/01/19 08:30 Est GFR (CKD-EPI)NonAf 91.86 04/01/19 08:30 Random Glucose 94 mg/dL (74-106) 04/01/19 08:30 Calcium 8.9 mg/dL (8.5-10.1) 04/01/19 08:30 Total Bilirubin 0.7 mg/dL (0.2-1) 04/01/19 08:30 AST 18 U/L (15-37) 04/01/19 08:30 ALT 22 U/L (13-61) 04/01/19 08:30 Alkaline Phosphatase 74 U/L (45-117) 04/01/19 08:30 Total Protein 6.7 g/dl (6.4-8.2) 04/01/19 08:30 Albumin 3.0 g/dl (3.4-5.0) L 04/01/19 08:30 RPR Titer Nonreactive (NONREACTIVE) 04/01/19 08:30 lab noted Assessment: 04/06/19 16:05 alcohol withdrawal sx Plan: continue alcohol detox
[2019-04-06] MEDS: THIAMINE HCL 100 MG TABLET (FP) PO SCH (22:06)
[2019-04-06] MEDS: QUEtiapine FUMARATE 100 MG TABLET (FP) PO SCH (22:06)
[2019-04-07 06:12] VITALS: BP 98/55; PULSE 65; TEMP 97.4
[2019-04-07] MEDS: NICOTINE 7 MG/24 HOURS TOPICAL PATCH TD SCH (10:33)
[2019-04-07] MEDS: CLOTRIMAZOLE 1% CREAM 15 GM TUBE TP SCH (10:33)
[2019-04-07] MEDS: PRENATAL VITAMINS W/ FOLIC ACID TABLET (FP) PO SCH (10:33)
--- NOTE | 2019-04-07 13:38 | DS ---
[facility] Detox Discharge Summary Admission Date: 03/31/19 Discharge Date: 04/07/19 - History Present History: Alcohol Dependence Additional Comments: 59 years old male admitted on 03/31/19 for alcohol withdrawal sx ambulate with cane due to childhood polio fell on 04/04/19, medically cleared from ER negative CT scan return to detox unit continue doing well with detox regimen team approach that patient discharge today to [facility] - Physical Exam Results Vital Signs: Vital Signs Temperature 97.4 F L 04/07/19 06:11 Pulse Rate 65 04/07/19 06:11 Respiratory Rate 18 04/07/19 06:30 Blood Pressure 98/55 L 04/07/19 06:11 O2 Sat by Pulse Oximetry (%) Pertinent Admission Physical Exam Findings: alcohol withdrawal sx Laboratory Laboratory Last Values WBC 5.3 K/mm3 (4.0-10.0) 04/01/19 08:30 RBC 4.71 M/mm3 (4.00-5.60) 04/01/19 08:30 Hgb 14.1 GM/dL (11.7-16.9) 04/01/19 08:30 Hct 41.3 % (35.4-49) 04/01/19 08:30 MCV 87.7 fl (80-96) 04/01/19 08:30 MCH 29.9 pg (25.7-33.7) 04/01/19 08:30 MCHC 34.1 g/dl (32.0-35.9) 04/01/19 08:30 RDW 14.1 % (11.9-15.9) D 04/01/19 08:30 Plt Count 345 K/MM3 (134-434) 04/01/19 08:30 MPV 8.4 fl (7.5-11.1) 04/01/19 08:30 Sodium 140 mmol/L (136-145) 04/01/19 08:30 Potassium 4.3 mmol/L (3.5-5.1) 04/01/19 08:30 Chloride 105 mmol/L (98-107) 04/01/19 08:30 Carbon Dioxide 29 mmol/L (21-32) 04/01/19 08:30 Anion Gap 6 MMOL/L (8-16) L 04/01/19 08:30 BUN 14.8 mg/dL (7-18) 04/01/19 08:30 Creatinine 0.9 mg/dL (0.55-1.3) 04/01/19 08:30 Est GFR (CKD-EPI)AfAm 106.46 04/01/19 08:30 Est GFR (CKD-EPI)NonAf 91.86 04/01/19 08:30 Random Glucose 94 mg/dL (74-106) 04/01/19 08:30 Calcium 8.9 mg/dL (8.5-10.1) 04/01/19 08:30 Total Bilirubin 0.7 mg/dL (0.2-1) 04/01/19 08:30 AST 18 U/L (15-37) 04/01/19 08:30 ALT 22 U/L (13-61) 04/01/19 08:30 Alkaline Phosphatase 74 U/L (45-117) 04/01/19 08:30 Total Protein 6.7 g/dl (6.4-8.2) 04/01/19 08:30 Albumin 3.0 g/dl (3.4-5.0) L 04/01/19 08:30 RPR Titer Nonreactive (NONREACTIVE) 04/01/19 08:30 lab noted - Treatment Hospital Course: Detox Protocol Followed, Detoxed Safely, Responded well, Discharged Condition Good, Rehab Referral Accepted Patient has Accepted a Rehab Referral to: [facility] - Medication Discharge Medications: Ambulatory Orders Buprenorphine HCl/Naloxone HCl [Suboxone 4 mg-1 mg Sl Film] 1 each SL DAILY #7 film MDD 1 01/28/19 Acamprosate Calcium 2 tab PO TID 03/31/19 Nicotine [Nicotine Patch 7 mg/24 hr] 1 each TD DAILY 03/31/19 Quetiapine Fumarate [Seroquel] 100 mg PO HS 03/31/19 Trazodone HCl 150 mg PO DAILY 03/31/19 Vitamin A & D Top Oint - 1 applic TP DAILY PRN 03/31/19 - Diagnosis (1) Alcohol dependence with uncomplicated withdrawal Status: Acute (2) Nicotine dependence Status: Acute Qualifiers: Nicotine product type: cigarettes Substance use status: in withdrawal Qualified Code(s): F17.213 - Nicotine dependence, cigarettes, with withdrawal (3) Polio Status: Chronic (4) Use of cane as ambulatory aid Status: Chronic - AMA Did Patient Leave Against Medical Advice: No
== END 2019-04-07 11:15 | disposition home or self-care (01) | DRG 775 ==
LOC: YASAS 12:37 → Y3N 17:41
PROVIDERS: ADMIT Surgery; ATTEND Surgery
PROC: HZ2ZZZZ Detoxification Services for Substance Abuse Treatment (ICD-10-PCS; principal; 2019-03-31)
DX: F10.230 Alcohol dependence with withdrawal, uncomplicated (principal); F17.213 Nicotine dependence, cigarettes, with withdrawal; F25.9 Schizoaffective disorder, unspecified; I95.9 Hypotension, unspecified; G47.00 Insomnia, unspecified; R26.2 Difficulty in walking, not elsewhere classified; Z99.89 Dependence on other enabling machines and devices; W18.39XA Other fall on same level, initial encounter; Y93.89 Activity, other specified; Y92.230 Patient room in hospital as the place of occurrence of the external cause; Z86.12 Personal history of poliomyelitis; Z91.013 Allergy to seafood
CPT/HCPCS: 36415; 80053; 85027; 86593; 93005; 93010

== ENCOUNTER 2019-04-04 11:54 | Emergency (ER) | payer OTHER ==
[2019-04-04 12:29] VITALS: BP 118/63; PULSE 66; TEMP 97; BMI 30.2
--- NOTE | 2019-04-04 12:42 | PDOC ---
History of Present Illness - General Chief Complaint: Injury Stated Complaint: FALL Time Seen by Provider: 04/04/19 12:21 History Source: Patient Exam Limitations: No Limitations - History of Present Illness Initial Comments: 59 yo M PMH polio w/ residual R leg paralysis, presents from [facility] after fall. Patient states that he went to sit in a chair, missed, and fell onto his behind. Specifically denies hitting his head. He walks with a cane, and says that this is his third mechanical fall in the last couple of weeks. He says he last snorted heroin 6 days ago, and has been in [facility] since then. He smokes 10 cigarettes a day. Says that he has had issues with mechanical falls over the last 8 or 9 years, having around 20 falls in that time. He has never hit his head or injured himself during one of these episodes, and they have always been due to placing his cane incorrectly. Denies LOC, lightheadedness, palpitations, dizziness. Further denies CP, SOB, N/ V, fevers/chills, diarrhea/constipation, vision changes, or difficulties with balance. 04/04/19 12:37 Past History - Past Medical History Allergies/Adverse Reactions: Allergies Allergy/AdvReac Type Severity Reaction Status Date / Time Fish Containing Products Allergy Severe Rash Verified 01/10/19 11:05 No Known Drug Allergies Allergy Unknown Verified 01/10/19 11:05 Home Medications: Ambulatory Orders Buprenorphine HCl/Naloxone HCl [Suboxone 4 mg-1 mg Sl Film] 1 each SL DAILY #7 film MDD 1 01/28/19 Acamprosate Calcium 2 tab PO TID 03/31/19 Nicotine [Nicotine Patch 7 mg/24 hr] 1 each TD DAILY 03/31/19 Quetiapine Fumarate [Seroquel] 100 mg PO HS 03/31/19 Trazodone HCl 150 mg PO DAILY 03/31/19 Vitamin A & D Top Oint - 1 applic TP DAILY PRN 03/31/19 Anemia: No Asthma: No Cancer: No Cardiac Disorders: No CVA: No COPD: No CHF: No Dementia: No Diabetes: No GI Disorders: No Disorders: No HTN: No Hypercholesterolemia: No Kidney Stones: No Liver Disease: No Seizures: No Thyroid Disease: No - Surgical History Abdominal Surgery: No Appendectomy: No Cardiac Surgery: No Cholecystectomy: No Lung Surgery: No Neurologic Surgery: No Orthopedic Surgery: No - Reproductive History Testicular Surgery: No - Suicide/Smoking/Psychosocial Hx Smoking History: Unknown if ever smoked Have you smoked in the past 12 months: Yes Number of Cigarettes Smoked Daily: 10 Cigars Per Day: 0 'Breaking Loose' booklet given: 03/31/19 Hx Alcohol Use: Yes Drug/Substance Use Hx: Yes Substance Use Type: Alcohol Hx Substance Use Treatment: Yes Review of Systems - Review of Systems Able to Perform ROS?: Yes Constitutional: No: Chills, Diaphoresis, Fever HEENTM: No: Eye Pain, Blurred Vision, Recent change in vision, Double Vision, Ear Pain, Nose Pain, Tinnitus, Throat Pain, Throat Swelling, Mouth Pain, Difficulty Swallowing Respiratory: No: Cough, Shortness of Breath, SOB at Rest, Stridor, Wheezing Cardiac (ROS): No: Chest Pain, Lightheadedness, Palpitations, Syncope, Chest Tightness ABD/GI: No: Abdominal Distended, Constipated, Diarrhea, Difficulty Swallowing, Nausea, Vomiting Musculoskeletal: No: Muscle Weakness Neurological: Yes: Pre-Existing Deficit (R leg paralysis, sensation intact). No : Headache *Physical Exam - Vital Signs Last Vital Signs Temp Pulse Resp BP Pulse Ox 97 F L 66 18 118/63 97 04/04/19 12:22 04/04/19 12:22 04/04/19 12:22 04/04/19 12:22 04/04/19 12:22 - Physical Exam Comments: Patient put his cane down incorrectly during walking and fell, was caught before hitting the ground. He would benefit significantly from getting a walker. 04/04/19 13:17 General Appearance: Yes: Disheveled (long unclipped nairs, hair uncut). No: Apparent Distress HEENT: positive: EOMI, CECILY, Normal ENT Inspection, Normal Voice, Symmetrical, Pharynx Normal, Hearing Grossly Normal, Other (atraumatic, normocephalic). negative: Hearing Decreased Neck: positive: Trachea midline, Normal Thyroid, Supple Respiratory/Chest: positive: Lungs Clear, Normal Breath Sounds. negative: Chest Tender, Respiratory Distress, Accessory Muscle Use Cardiovascular: positive: Regular Rhythm, Regular Rate. negative: Murmur Gastrointestinal/Abdominal: positive: Normal Bowel Sounds, Soft. negative: Tender Musculoskeletal: negative: CVA Tenderness, Vertebral Tenderness Extremity: positive: Normal Capillary Refill. negative: Normal Range of Motion (R leg paralysis 2/2 polio) Integumentary: positive: Normal Color, Dry, Warm Neurologic: positive: account support rep II-XII NML intact, Fully Oriented, Alert, Normal Mood/ Affect, Normal Response. negative: Motor Strength 5/5 (0/5 strength in R leg, 5 /5 in other extremities) Medical Decision Making - Medical Decision Making Patient describes a mechanical fall w/o concern for head trauma or syncopal episode. Had lab work at [facility] 2 days ago which was unremarkable. Will get EKG and UA/UC. 04/04/19 12:[address] head, says that he feels at his baseline. His history is consistent with a mechanical fall. He would benefit greatly from a walker. 04/04/19 13:16 Lab work from [facility] two days ago reviewed, no concerning abnormalities. 04/04/19 13:20 EKG reviewed, HR 60s, NSR, incomplete right bundle branch block, no ST segment elevations 04/04/19 13:59 *DC/Admit/Observation/Transfer Diagnosis at time of Disposition: Accident due to mechanical fall without injury Qualifiers: Encounter type: initial encounter Qualified Code(s): W19.XXXA - Unspecified fall, initial encounter - Discharge Dispostion Disposition: HOME Condition at time of disposition: Good Decision to Admit order: No - Referrals - Patient Instructions Printed Discharge Instructions: How to Prevent Falls Additional Instructions: Please talk to [facility] about getting a walker, as this should give you significantly more support while walking. Keep hydrated and drink plenty of fluids. Return to the ED if you have another fall which leads to injury, or if you hit your head. - Post Discharge Activity
[2019-04-04 14:35] LABS: PH,URINE 8.5 (5.0-8.0); URINE APPEARANCE CLOUDY; URINE BILIRUBIN NEGATIVE (NEGATIVE); URINE COLOR DK YELLOW; URINE GLUCOSE (UA) NEGATIVE (NEGATIVE); URINE KETONE NEGATIVE (NEGATIVE); URINE LEUK ESTERASE NEGATIVE (NEGATIVE); URINE NITRITE NEGATIVE (NEGATIVE); URINE PROTEIN NEGATIVE (NEGATIVE); URINE UROBILINOGEN 0.2 mg/dL (0.2-1.0)
--- NOTE | 2019-04-04 17:19 | PDOC ---
Documentation entered by Jacqueline Fritz SCRIBE, acting as scribe for Tobin Russo MD. Tobin Russo MD: This documentation has been prepared by the Lam jiang Mackenzie, SCRIBE, under my direction and personally reviewed by me in its entirety. I confirm that the documentation accurately reflects all work , treatment, procedures, and medical decision making performed by me. 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 Patient states he was going to sit down in his chair when he missed part of the chair and fell backwards onto the floor. He reports landing onto his behind. Patient denies striking his head or any LOC. He denies any injuries, states "I feel fine." Denies preceding dizziness, weakness, CP, palpitations, SOB. Denies recent fevers The patient denies headache, focal weakness or numbness. Denies fever, chills, nausea, vomiting, diarrhea and constipation. Denies dysuria, frequency, urgency and hematuria. Allergies: NKDA Past surgical history: None reported Social history: As noted above - Physicial Exam PE: 04/04/19 14:11 GENERAL: Awake, alert, and fully oriented, in no acute distress HEAD: No signs of trauma EYES: PERRLA, EOMI, sclera anicteric, conjunctiva clear ENT: Auricles normal inspection, hearing grossly normal, nares patent, oropharynx clear without exudates. Moist mucosa NECK: Normal ROM, supple, no lymphadenopathy, JVD, or masses LUNGS: Breath sounds equal, clear to auscultation bilaterally. No wheezes, and no crackles HEART: Regular rate and rhythm, normal S1 and S2, no murmurs, rubs or gallops ABDOMEN: Soft, nontender, normoactive bowel sounds. No guarding, no rebound. No masses EXTREMITIES: Normal range of motion, no edema. No clubbing or cyanosis. No cords, erythema, or tenderness NEUROLOGICAL: Normal speech, cranial nerves intact, negative pronator drift, 5/ 5 strength in all 4 extremities, normal sensation to light touch in all 4 extremities, normal cerebellar exam, normal gait SKIN: Warm, Dry, normal turgor, no rashes or lesions noted. - Medical Decision Making 04/04/19 14:14 59yo M presents to the ED after a mechanical fall He has no complaints Exam wnl Pt ambulatory in ED with cane Fall protocol ordered however pt is refusing CT, labs. He is amenable to EKG and UA EKG is non ischemic UA is pending 04/04/19 15:47 UA neg for infection Pt well appearing, has no complaints He is clinically stable for DC home I discussed the physical exam findings, ancillary test results and final diagnoses with the patient. I answered all of the patient's questions. The patient was satisfied with the care received and felt comfortable with the discharge plan and treatment plan. The patient will call their primary care physician within 24 hours to arrange follow-up and will return to the Emergency Department with any new, persistent or worsening symptoms. Heart Score/ECG Review #1 04/04/19 17:18 EKG read and int by me: NSR, rate 62, normal axis. +likely incomplete RBBB. No MONICA. Isolated TWI lead III
--- NOTE | 2019-04-05 09:31 | EKG ---
Test Reason : Blood Pressure : / mmHG Vent. Rate : 062 BPM Atrial Rate : 062 BPM P-R Int : 168 ms QRS Dur : 104 ms QT Int : 410 ms P-R-T Axes : 055 039 029 degrees QTc Int : 416 ms POOR DATA QUALITY, INTERPRETATION MAY BE ADVERSELY AFFECTED NORMAL SINUS RHYTHM CANNOT RULE OUT INFERIOR INFARCT , AGE UNDETERMINED ABNORMAL ECG WHEN COMPARED WITH ECG OF 31-MAR-2019 17:51, NO SIGNIFICANT CHANGE WAS FOUND Confirmed by ORALIA MOORE MD ([id number]) on 04/05/2019 9:31:01 AM Referred By: Confirmed By:ORALIA MOORE MD
== END 2019-04-04 17:59 | disposition short-term general hospital (02) ==
LOC: JER 11:54
DX: Z04.3 Encounter for examination and observation following other accident (principal); W07.XXXA Fall from chair, initial encounter; Y93.89 Activity, other specified; Y92.238 Other place in hospital as the place of occurrence of the external cause; Y99.8 Other external cause status; R29.6 Repeated falls; A80 Acute poliomyelitis; G81.91 Hemiplegia, unspecified affecting right dominant side; Z99.89 Dependence on other enabling machines and devices
CPT/HCPCS: 81003; 87086; 93005; 93010; 99282-25

== ENCOUNTER 2019-04-16 08:39 | Inpatient (IN) | payer OTHER ==
[2019-04-16 09:27] VITALS: BMI 30.2
--- NOTE | 2019-04-16 11:19 | HP ---
CIWA Score - Admission Criteria [facility]ASAS Guidelines: Admission for Medically Managed Detox: Requires at least one of the followin. CIWA greater than 12 2. Seizures within the past 24 hours 3. Delirium tremens within the past 24 hours 4. Hallucinations within the past 24 hours 5. Acute intervention needed for co occurring medical disorder 6. Acute intervention needed for co occurring psychiatric disorder 7. Severe withdrawal that cannot be handled at a lower level of care (continued vomiting, continued diarrhea, abnormal vital signs) requiring intravenous medication and/or fluids 8. Admission ROS [facility] Chief Complaint: seeking rehab for heroin use Allergies/Adverse Reactions: Allergies Allergy/AdvReac Type Severity Reaction Status Date / Time Fish Containing Products Allergy Severe Rash Verified 04/16/19 09:19 No Known Drug Allergies Allergy Unknown Verified 01/10/19 11:05 History of Present Illness: 59 y/o/m here for rehab. He was admitted here for detox from alcohol on 03/31 and completed his detox on 04/07 when he was discharged. He states he has not used any drugs since he was discharged. He was living with a friend since he was discharged on the . He states he has not used Heroin since December. He takes Seroquel and Trazodone to help him sleep. He decided to come back for rehab because he wants to stay clean. He uses a cane to ambulate due to a history of Polio. He denies any Benzodiazepine use since being discharged from detox. PMHx: Polio at age 1, treated Surgical Hx: denies FHx: denies SH: smokes half a pack a day. denies alcohol use currently. Allergies: fish - gets a rash - Ebola screening Have you traveled outside of the country in the last 21 days: No (N) Have you had contact with anyone from an Ebola affected area: No Do you have a fever: No - Review of Systems Constitutional: No Symptoms Reported EENT: reports: No Symptoms Reported Respiratory: reports: No Symptoms reported Cardiac: reports: No Symptoms Reported GI: reports: No Symptoms Reported : reports: No Symptoms Reported Musculoskeletal: reports: No Symptoms Reported Integumentary: reports: No Symptoms Reported Neuro: reports: No Symptoms reported Endocrine: reports: No Symptoms Reported Hematology: reports: No Symptoms Reported Psychiatric: reports: No Sypmtoms Reported Other Systems: Reviewed and Negative Patient History - Patient Medical History Hx Anemia: No Hx Asthma: No Hx Chronic Obstructive Pulmonary Disease (COPD): No Hx Cancer: No Hx Cardiac Disorders: No Hx Congestive Heart Failure: No Hx Hypertension: No Hx Hypercholesterolemia: No Hx Pacemaker: No HX Cerebrovascular Accident: No Hx Seizures: No Hx Dementia: No Hx Diabetes: No Hx Gastrointestinal Disorders: No Hx Liver Disease: No Hx Genitourinary Disorders: No Hx Sexually Transmitted Disorders: No Hx Renal Disease (ESRD): No Hx Thyroid Disease: No Hx Human Immunodeficiency Virus (HIV): No (12/10 negative last) Hx Hepatitis C: No Hx Depression: No Hx Suicide Attempt: No Hx Bipolar Disorder: No Hx Schizophrenia: No Other Medical History: polio at age 1. No suicidal or homicidal ideations - Patient Surgical History Past Surgical History: No Hx Neurologic Surgery: No Hx Cataract Extraction: No Hx Cardiac Surgery: No Hx Lung Surgery: No Hx Breast Surgery: No Hx Breast Biopsy: No Hx Abdominal Surgery: No Hx Appendectomy: No Hx Cholecystectomy: No Hx Genitourinary Surgery: No Hx Section: No Hx Orthopedic Surgery: No Hx Hysterectomy: No Anesthesia Reaction: No - PPD History Previous Implant?: Yes Documented Results: Negative w/proof Implanted On Prior R Admission?: Yes Date: 01/12/19 Results: 0 mm. PPD to be Administered?: Yes - Smoking Cessation Smoking history: Unknown if ever smoked Have you smoked in the past 12 months: Yes Aproximately how many cigarettes per day: 10 Cigars Per Day: 0 Hx Chewing Tobacco Use: No Initiated information on smoking cessation: Yes 'Breaking Loose' booklet given: 04/16/19 - Substances abused Heroin Other (specify): SNIFF Frequency: Daily Amount used: 11 BAGS Age of first use: 14 Date of last use: 01/09/19 Cocaine Substance route: Inhalation Frequency: No use in 30 days Amount used: 40$ Age of first use: 14 Date of last use: 01/09/19 Alcohol Substance route: Oral Frequency: Daily Amount used: 1 pint barcadi Age of first use: 14 Date of last use: 03/31/19 Family Disease History - Family Disease History Family Disease History: [place]: Sister (), Other: Father (deceaded,ALCOHOL) , Mother (), Sister Admission Physical Exam BHS - Vital Signs Vital Signs: Vital Signs - 24 hr 04/16/19 09:15 Temperature 98.6 F Pulse Rate 63 Respiratory 16 Rate Blood Pressure 119/91 - Physical General Appearance: Yes: Disheveled HEENTM: Yes: EOMI, Normocephalic Respiratory: Yes: Lungs Clear, Normal Breath Sounds, No Accessory Muscle Use Cardiology: Yes: Regular Rhythm, Regular Rate, S1, S2 Abdominal: Yes: Normal Bowel Sounds, Non Tender, Soft Musculoskeletal: Yes: Other (uses a cane to ambulate) Neurological: Yes: Fully Oriented, Alert, Motor Strength 5/5 Integumentary: Yes: Dry - Diagnostic (1) Alcohol use disorder Current Visit: Yes Status: Acute (2) Nicotine dependence Current Visit: No Status: Acute Qualifiers: Nicotine product type: cigarettes Substance use status: in withdrawal Qualified Code(s): F17.213 - Nicotine dependence, cigarettes, with withdrawal Breathalyzer - Breathalyzer Breathalyzer: 0 Urine Drug Screen - Test Device Lot number: [id number] Expiration date: 01/21/21 - Control Is test valid?: Yes - Results Drug screen NEGATIVE: No Urine drug screen results: BZO-Benzodiazepines Inpatient Rehab Admission - Rehab Decision to Admit Inpatient rehab admission?: Yes - Initial Determination Are CD services needed?: Yes Free of communicable disease: Yes Not in need of hospitalization: Yes - Rehab Admission Criteria Previous failed treatment: Yes Poor recovery environment: Yes Comorbidities: No Lacks judgement: No Patient is meeting Inpatient Rehab admission criteria:: Yes
[2019-04-16] MEDS ORDERED: MAGNESIUM HYDROX 2400MG/30ML ORAL SUSPENSION 30 ML CUP PO PRN (11:59)
[2019-04-16] MEDS ORDERED: P-EPHED 60MG/TRIPROLIDI 2.5MG TABLET PO PRN (11:59)
[2019-04-16] MEDS ORDERED: guaiFENesin 200 MG/10 ML 10 ML UNIT-DOSE CUPS PO PRN (11:59)
[2019-04-16] MEDS ORDERED: MENTHOL/PHENOL 1 EACH UD MM PRN (11:59)
[2019-04-16] MEDS ORDERED: MAGNESIUM CITRATE 300 ML BOTTLE PO PRN (11:59)
[2019-04-16] MEDS ORDERED: IBUPROFEN 400 MG TABLET (FP) PO PRN (11:59)
[2019-04-16] MEDS ORDERED: MAG HYDROX/AL HYDROX/SIMETH 30 ML UNIT-DOSE CUP PO PRN (11:59)
[2019-04-16] MEDS ORDERED: ACETAMINOPHEN 325 MG TABLET (FP) PO PRN (11:59)
[2019-04-16] MEDS ORDERED: LOPERAMIDE HCL 2 MG CAPSULE PO PRN (11:59)
[2019-04-16] MEDS ORDERED: NICOTINE POLACRILEX 2 MG GUM BUC PRN (11:59)
--- NOTE | 2019-04-16 12:35 | PN ---
Teaching Attending Note Name of Resident: Marcus Morrow ATTENDING PHYSICIAN STATEMENT I saw and evaluated the patient. I reviewed the resident's note and discussed the case with the resident. I agree with the resident's findings and plan as documented. SUBJECTIVE: this 59 years old male with alcohol and cocaine dependence had completed detox from 03/31/19 to 04/07/19,for rehab OBJECTIVE: Vital Signs Temperature 98.6 F 04/16/19 09:15 Pulse Rate 63 04/16/19 09:15 Respiratory Rate 16 04/16/19 09:15 Blood Pressure 119/91 04/16/19 09:15 O2 Sat by Pulse Oximetry (%) ASSESSMENT AND PLAN: for inpatient rehab from alcohol,cocaine dependence,ambulation with cane , history of poliomyelitis.ambulation with cane, for rehab as protocol
[2019-04-16] MEDS: MELATONIN 5 MG TABLETS PO PRN (21:41)
[2019-04-16] MEDS: THIAMINE HCL 100 MG TABLET (FP) PO SCH (21:41)
[2019-04-17] MEDS: PRENATAL VITAMINS W/ FOLIC ACID TABLET (FP) PO SCH (10:37)
[2019-04-17] MEDS: NICOTINE 21 MG/24 HOURS TOPICAL PATCH TD SCH (12:11)
--- NOTE | 2019-04-17 16:32 | CONSULT ---
[facility] Psychiatric Consult - Data Date of interview: 04/17/19 Admission source: [facility] Identifying data: Direct admission to [address] for this 59 y/o male (completed detoxification at [facility] earlier this month and went home ), self-referred for rehabilitative care to address substance use disorders ( alcohol, heroin, cocaine, nicotine) co-morbid with anxiety disorder and insomnia. Patient is single (common-law), a father of four, domiciled (lives with a friend), disabled (uses cane for ambulation), unemployed and supported on SSI benefits. Substance Abuse History: Confirmed by patient in this interview. Details in current [facility] report as follows : Smoking history: Unknown if ever smoked. Have you smoked in the past 12 months: Yes. Aproximately how many cigarettes per day : 10. Cigars Per Day: 0. Hx Chewing Tobacco Use: No. Initiated information on smoking cessation: Yes. 'Breaking Loose' booklet given: 04/16/19. - Substances abused. Heroin. Other (specify): SNIFF. Frequency: Daily. Amount used: 11 BAGS. Age of first use: 14. Date of last use: 01/09/19. Cocaine. Substance route: Inhalation. Frequency: No use in 30 days. Amount used: 40$. Age of first use: 14. Date of last use: 01/09/19. Alcohol. Substance route: Oral. Frequency: Daily. Amount used: 1 pint barcadi. Age of first use: 14. Date of last use: 03/31/19 Medical History: Remarkable for a history of poliomyelitis (from age 1) + weakness of right leg. History of frequent falls. Psychiatric History: First contact with a psychiatrist occurred in 2010, at [facility] (admission for detoxification). Prescribed seroquel, at the time, for insomnia. Mr Nielsen presents with a history of two psychiatric hospitalizations (December 2016) at [facility] and [facility]. Diagnosed with Schizoaffective Disorder. Medicated with seroquel 100 mg/hs + trazodone 200 mg/hs. Patient is currentlty seeing a psychiatrist at [facility]. Denies history of suicide attempts. Physical/Sexual Abuse/Trauma History: Patient denies. Additional Comment: Urine drug screen results: BZO-Benzodiazepines. Noted. Mental Status Exam - Mental Status Exam Alert and Oriented to: Time Cognitive Function: Good Patient Appearance: Well Groomed (appears frail and unsteady) Mood: Hopeful, Euthymic Affect: Appropriate, Normal Range Patient Behavior: Appropriate, Cooperative (friendly) Speech Pattern: Clear, Appropriate Voice Loudness: Normal Thought Process: Intact, Goal Oriented Thought Disorder: Not Present Hallucinations: Denies Suicidal Ideation: Denies Homicidal Ideation: Denies Insight/Judgement: Fair Sleep: Poorly, Difficulty falling asleep Appetite: Good Gait/Station: Other (poor balance due to complications of polio) Psychiatric Findings - Problem List ([place] 1, 2,3) (1) Opioid dependence Current Visit: Yes Status: Chronic (2) Alcohol use disorder Current Visit: Yes Status: Chronic (3) Nicotine dependence Current Visit: Yes Status: Chronic Qualifiers: Nicotine product type: cigarettes Substance use status: in withdrawal Qualified Code(s): F17.213 - Nicotine dependence, cigarettes, with withdrawal (4) History of schizoaffective disorder Current Visit: Yes Status: Chronic (5) Insomnia Current Visit: Yes Status: Chronic Qualifiers: Insomnia type: unspecified Qualified Code(s): G47.00 - Insomnia, unspecified - Initial Treatment Plan Initial Treatment Plan: Records revisited. Falls precautions. Psychoeducation. Support. AA/NA meetings. Relapse prevention (MAT) : discussed. Patient insists on resuming seroquel 100 mg po hs + trazodone 100 mg po hs. Ordered. Side effects/benefits discussed with the patient, including potential for priapism, oversedation, falls, orthostasis, metabolic syndrome and abnormal involuntary movements. Mr Nielsen gave verbal consent to MD. Brown.
[2019-04-17] MEDS: QUEtiapine FUMARATE 100 MG TABLET (FP) PO SCH (21:49)
[2019-04-17] MEDS: THIAMINE HCL 100 MG TABLET (FP) PO SCH (21:49)
[2019-04-17] MEDS: traZODone HCL 100 MG TABLET (FP) PO SCH (21:49)
[2019-04-18] MEDS: PRENATAL VITAMINS W/ FOLIC ACID TABLET (FP) PO SCH (10:34)
[2019-04-18] MEDS: NICOTINE 21 MG/24 HOURS TOPICAL PATCH TD SCH (10:35)
[2019-04-18] MEDS: THIAMINE HCL 100 MG TABLET (FP) PO SCH (21:53)
[2019-04-18] MEDS: MELATONIN 5 MG TABLETS PO PRN (21:53)
[2019-04-18] MEDS: QUEtiapine FUMARATE 100 MG TABLET (FP) PO SCH (21:53)
[2019-04-18] MEDS: traZODone HCL 100 MG TABLET (FP) PO SCH (21:53)
[2019-04-19] MEDS: PRENATAL VITAMINS W/ FOLIC ACID TABLET (FP) PO SCH (11:06)
[2019-04-19] MEDS: NICOTINE 21 MG/24 HOURS TOPICAL PATCH TD SCH (11:06)
[2019-04-19] MEDS: traZODone HCL 100 MG TABLET (FP) PO SCH (21:27)
[2019-04-19] MEDS: MELATONIN 5 MG TABLETS PO PRN (21:27)
[2019-04-19] MEDS: QUEtiapine FUMARATE 100 MG TABLET (FP) PO SCH (21:27)
[2019-04-19] MEDS: THIAMINE HCL 100 MG TABLET (FP) PO SCH (21:27)
[2019-04-20] MEDS: NICOTINE 21 MG/24 HOURS TOPICAL PATCH TD SCH (10:40)
[2019-04-20] MEDS: PRENATAL VITAMINS W/ FOLIC ACID TABLET (FP) PO SCH (10:40)
[2019-04-20] MEDS: traZODone HCL 100 MG TABLET (FP) PO SCH (21:53)
[2019-04-20] MEDS: QUEtiapine FUMARATE 100 MG TABLET (FP) PO SCH (21:53)
[2019-04-20] MEDS: THIAMINE HCL 100 MG TABLET (FP) PO SCH (21:53)
[2019-04-20] MEDS: MELATONIN 5 MG TABLETS PO PRN (21:53)
[2019-04-21] MEDS: NICOTINE 21 MG/24 HOURS TOPICAL PATCH TD SCH (11:03)
[2019-04-21] MEDS: PRENATAL VITAMINS W/ FOLIC ACID TABLET (FP) PO SCH (11:03)
[2019-04-21] MEDS: traZODone HCL 100 MG TABLET (FP) PO SCH (22:19)
[2019-04-21] MEDS: THIAMINE HCL 100 MG TABLET (FP) PO SCH (22:19)
[2019-04-21] MEDS: QUEtiapine FUMARATE 100 MG TABLET (FP) PO SCH (22:19)
[2019-04-22] MEDS: PRENATAL VITAMINS W/ FOLIC ACID TABLET (FP) PO SCH (10:52)
[2019-04-22] MEDS: NICOTINE 21 MG/24 HOURS TOPICAL PATCH TD SCH (10:52)
--- NOTE | 2019-04-22 14:57 | PN ---
[facility] Progress Note Note: Patient is scheduled for discharge tomorrow. Scripts for 30 days supply of medications(Seroquel 100 mg/hs, Trazadone 100 mg/hs) will be elecronically transmitted to [facility] at [address], [place] [address]
[2019-04-22] MEDS: QUEtiapine FUMARATE 100 MG TABLET (FP) PO SCH (22:04)
[2019-04-22] MEDS: traZODone HCL 100 MG TABLET (FP) PO SCH (22:04)
[2019-04-22] MEDS: THIAMINE HCL 100 MG TABLET (FP) PO SCH (22:04)
[2019-04-23 06:53] VITALS: BP 123/79; PULSE 77; TEMP 98
--- NOTE | 2019-04-23 09:40 | PN ---
[facility] Progress Note (SOAP) Subjective: Pt is a 59 y/o male admitted to rehab on 04/16/19 for substance use disorder after completing detox. Pt met with counselor and has been referred to and given aftercare services in discharge package. Pt is homeless but however, states he will stay with his daughter after he discharges today. Denies s/h/i. Objective: 04/23/19 11:07 Alert o x 3 Ambulates with cane. Vital Signs - 24 hr 04/23/19 04/23/19 04/23/19 00:30 03:30 06:53 Temperature 98.0 F Pulse Rate 77 Respiratory 18 18 16 Rate Blood Pressure 123/79 Assessment: 04/23/19 11:06 nad medically stable 04/23/19 12:40 [facility] Inpatient Services Medical - Diagnosis (1) Alcohol dependence Qualifiers: Substance use status: uncomplicated Qualified Code(s): F10.20 - Alcohol dependence, uncomplicated Status: Chronic (2) Opioid dependence Qualifiers: Substance use status: uncomplicated Qualified Code(s): F11.20 - Opioid dependence, uncomplicated Status: Chronic (3) Cocaine dependence Qualifiers: Substance use status: uncomplicated Qualified Code(s): F14.20 - Cocaine dependence, uncomplicated Status: Chronic (4) Nicotine dependence Qualifiers: Nicotine product type: cigarettes Substance use status: in withdrawal Qualified Code(s): F17.213 - Nicotine dependence, cigarettes, with withdrawal Status: Chronic (5) Polio Status: Chronic (6) Use of cane as ambulatory aid Status: Chronic Initialized on 04/23/19 09:40 - END OF NOTE Plan: D/c pt today Follow up with Cd aftercare recommendation [facility] [address] Follow up with housing referral @ [facility] [place] [address] [place] follow up with primary care @ [facility] [place] [address]
[2019-04-23] MEDS: NICOTINE 21 MG/24 HOURS TOPICAL PATCH TD SCH (10:38)
[2019-04-23] MEDS: PRENATAL VITAMINS W/ FOLIC ACID TABLET (FP) PO SCH (10:38)
== END 2019-04-23 10:40 | disposition home or self-care (01) | DRG 772 ==
LOC: YASAS 08:39 → Y5N 12:17
PROVIDERS: ADMIT Neuromusculoskeletal Medicine & OMM; ATTEND Neuromusculoskeletal Medicine & OMM
PROC: HZ42ZZZ Group Counseling for Substance Abuse Treatment, Cognitive-Behavioral (ICD-10-PCS; principal; 2019-04-16)
DX: F11.20 Opioid dependence, uncomplicated (principal); F10.20 Alcohol dependence, uncomplicated; F14.20 Cocaine dependence, uncomplicated; F17.213 Nicotine dependence, cigarettes, with withdrawal; G47.00 Insomnia, unspecified; R29.6 Repeated falls; R26.2 Difficulty in walking, not elsewhere classified; Z99.89 Dependence on other enabling machines and devices; Z86.12 Personal history of poliomyelitis; Z91.013 Allergy to seafood